=== PATIENT | male | born 1960 | race Hispanic/Latino ===

== ENCOUNTER 2016-11-30 19:28 | Inpatient (IN) | payer MEDICAID, OTHER ==
[2016-11-30 19:28] VITALS: BMI 22.3
--- NOTE | 2016-11-30 20:39 | C.PDOC ---
History Of Present Illness Patient presents to the ED from custodial after accidentally pulling out PEG tube yesterday. [facility] noticed today and sent patient to ED. Patient denies fever, chills, nausea, and vomiting. Time Seen by Provider: 11/30/16 20:38 Chief Complaint (Nursing): GI Problem History Per: Patient History/Exam Limitations: no limitations Onset/Duration Of Symptoms: Days (1 day ) Current Symptoms Are (Timing): Still Present Severity: None Pain Scale Rating Of: 0 Recent travel outside of the [place]: No Additional History Per: Jail Past Medical History Reviewed: Historical Data, Nursing Documentation, Vital Signs Vital Signs: Last Vital Signs Temp 97.9 F 11/30/16 19:40 Pulse 60 11/30/16 19:40 Resp 18 11/30/16 19:40 BP 132/70 11/30/16 19:40 Pulse Ox 99 11/30/16 21:06 - Medical History PMH: Anemia, Arthritis, Back Problems, HTN, Hyperlipidemia - [facility] Procedures ALCOHOL DETOXIFICATION (04/18/14) INSERTION OF ENDOTRACHEAL AIRWAY INTO TRACHEA, VIA OPENING (10/19/16) INSERTION OF FEEDING DEVICE INTO STOMACH, PERC APPROACH (10/19/16) INTRODUCTION OF SERUM/TOX/VACCINE INTO MUSCLE, PERC APPROACH (10/19/16) NONEXCIS DEBRID OF WOUND, INFECT, OR BURN (04/22/14) OTHER SKIN & SUBQ I D (04/27/14) PHYSICAL THERAPY NEC (04/27/14) PSYCHIA INTERV/EVAL NEC (08/24/12) RESPIRATORY VENTILATION, GREATER THAN 96 CONSECUTIVE HOURS (10/19/16) Family History: States: Unknown Family Hx - Social History Hx Tobacco Use: Yes Hx Alcohol Use: No Hx Substance Use: No - Immunization History Hx Tetanus Toxoid Vaccination: Yes Hx Influenza Vaccination: Yes Hx Pneumococcal Vaccination: No Review Of Systems Constitutional: Negative for: Fever, Chills Cardiovascular: Negative for: Chest Pain, Palpitations Respiratory: Negative for: Cough, Shortness of Breath Gastrointestinal: Negative for: Nausea, Vomiting, Abdominal Pain, Diarrhea Physical Exam - Physical Exam Appears: Non-toxic, No Acute Distress Skin: Warm, Dry Head: Atraumatic Eye(s): bilateral: Normal Inspection Oral Mucosa: Moist Neck: Supple Chest: Symmetrical, No Deformity Cardiovascular: Rhythm Regular, No Murmur Respiratory: No Rales, No Rhonchi, No Wheezing Gastrointestinal/Abdominal: Soft, No Tenderness, No Distention, No Guarding, No Rebound, Other (PEG tube site at periumbilical region appears closed) Extremity: Normal ROM, No Tenderness Neurological/Psych: Oriented x3 ED Course And Treatment O2 Sat by Pulse Oximetry: 99 (room air ) Progress Note: Labs were ordered and patient was given IV fluids. Disposition Discussed With DrChantel: Ana Beatty Comment: accepted the pt onhis service and took over the care at 9PM Counseled Patient/Family Regarding: Studies Performed, Diagnosis - Disposition Disposition: HOSPITALIZED Disposition Time: 20:39 Condition: FAIR - POA Present On Arrival: None - Clinical Impression Clinical Impression: PEG tube malfunction - Scribe Statement The provider has reviewed the documentation as recorded by the Scribe Aida Cornelius All medical record entries made by the Scribe were at my direction and personally dictated by me. I have reviewed the chart and agree that the record accurately reflects my personal performance of the history, physical exam, medical decision making, and the department course for this patient. I have also personally directed, reviewed, and agree with the discharge instructions and disposition.
[2016-11-30 21:40] LABS: BASO # 0.1 K/uL (0.0-0.2); BASO % 0.8 % (0.0-2.0); EOS # 0.1 K/uL (0.0-0.7); EOS % 1.4 % (0.0-4.0); HEMATOCRIT 37.4 % (35.0-51.0); LYMPH % 20.6 % (20.0-40.0); MEAN CELL VOLUME 95.5 fL (80.0-94.0); MEAN CORPUSCULAR HEMOGLOBIN 33.1 pg (27.0-31.0); MEAN CORPUSCULAR HGB CONC 34.7 g/dL (33.0-37.0); MEAN PLATELET VOLUME 7.8 fL (7.2-11.7); MONO % 10.3 % (0.0-10.0); WHITE BLOOD COUNT 9.8 K/uL (4.8-10.8)
[2016-11-30] MEDS ORDERED: Sodium Chloride 0.9% 1,000 ML ONE (21:48)
[2016-11-30 21:53] LABS: CHLORIDE 97 mmol/L (98-107); SODIUM 130 mmol/L (132-148)
[2016-11-30 21:55] LABS: GFR AFRICAN-AMERICAN > 60
[2016-11-30] MEDS: Sodium Chloride 0.9% 1,000 ML IV SCH (21:55)
[2016-11-30 21:56] LABS: BLOOD UREA NITROGEN 6 mg/dL (9-20); CALCIUM 8.9 mg/dl (8.6-10.4); CARBON DIOXIDE 24 mmol/L (22-30); GLUCOSE,RANDOM 86 mg/dL (75-110)
--- NOTE | 2016-11-30 22:13 | CP.PCM.HP ---
Past Patient History - Past Medical History & Family History Past Medical History?: Yes - Past Social History Smoking Status: Unknown If Ever Smoked - CARDIAC Hx Hypertension: Yes - PULMONARY Hx Respiratory Disorders: No Hx Tuberculosis: No - HEENT Hx HEENT Problems: No - RENAL Hx Chronic Kidney Disease: No - ENDOCRINE/METABOLIC Hx Endocrine Disorders: No - HEMATOLOGICAL/ONCOLOGICAL Hx Anemia: Yes - INTEGUMENTARY Hx Dermatological Problems: No - MUSCULOSKELETAL/RHEUMATOLOGICAL Hx Arthritis: Yes - GASTROINTESTINAL Hx Gastrointestinal Disorders: Yes Hx Colitis: Yes Hx Gastroesophageal Reflux: Yes Other/Comment: peg ulcer - PSYCHIATRIC Hx Substance Use: No - SURGICAL HISTORY Hx Surgeries: Yes Other/Comment: hemmroids - ANESTHESIA Hx Anesthesia: Yes Hx Anesthesia Reactions: No Hx Malignant Hyperthermia: No Meds Allergies/Adverse Reactions: Allergies Allergy/AdvReac Type Severity Reaction Status Date / Time No Known Allergies Allergy Verified 10/19/16 23:00 Results - Vital Signs Recent Vital Signs: Last Vital Signs Temp 97.9 F 11/30/16 19:40 Pulse 60 11/30/16 19:40 Resp 18 11/30/16 19:40 BP 132/70 11/30/16 19:40 Pulse Ox 99 11/30/16 21:45 - Labs Result Diagrams: 11/30/16 21:31 11/30/16 21:31 Labs: Laboratory Results - last 24 hr 11/30/16 11/30/16 11/30/16 21:31 21:31 21:31 WBC 9.8 RBC 3.92 L Hgb 13.0 Hct 37.4 MCV 95.5 H MCH 33.1 H MCHC 34.7 RDW 14.0 Plt Count 294 MPV 7.8 Neut % (Auto) 66.9 Lymph % (Auto) 20.6 [place] % (Auto) 10.3 H Eos % (Auto) 1.4 Baso % (Auto) 0.8 Neut # 6.6 Lymph # 2.0 [place] # 1.0 H Eos # 0.1 Baso # 0.1 PT 11.7 INR 1.0 APTT 35 H Sodium 130 L Potassium 4.0 Chloride 97 L Carbon Dioxide 24 Anion Gap 14 BUN 6 L Creatinine 0.4 L Est GFR ( Amer) > 60 Est GFR (Non-Af Amer) > 60 Random Glucose 86 Calcium 8.9
[2016-12-01] MEDS: Acetylcysteine 20% Inhal Soln (4ml) INH SCH (08:07)
[2016-12-01] MEDS: Albuterol-Ipratrop 3 mg / 0.5 (3 ml) UD INH SCH ×2 (08:07→11:33)
--- NOTE | 2016-12-01 09:53 | CP.PCM.CON ---
<RadhadannyChin qiu - Last Filed: 12/01/16 13:11> History of Present Illness - History of Present Illness History of Present Illness: PGY5 GI Fellow Consult Note Patient is a 56yo male with PMHx significant for recent CVA with left hemiparesis along with dysarthria/dysphagia s/p PEG tube placement on 11/22/16, EtOH abuse, HTN and chronic back pain who [place] the [place] for inadvertent removal of his recently placed gastrostomy tube. The patient has recently received Ativan and is currently sedated, not willing to answer questions. Prior to this, it is well documented that patient is a poor historian. Following his recent CVA our service was consulted for dysphagia and PEG tube was placed on 11/22/16. Patient transferred [place] to the hospital upon discovering inadvertent removal of PEG tube. PMHx: See HPI PSHx: No prior reports FHx: CAD; no other prior reported significant family history Social: Prior EtOH abuse, unknown tobacco/illicit drug use Endo: 11/22/16 - PEG placement; LA Class C esophagitis Review of Systems - Review of Systems Systems not reviewed;Unavailable: Altered Mental Status Past Patient History - Past Medical History & Family History Past Medical History?: Yes - Past Social History Smoking Status: Never Smoked - CARDIAC Hx Cardiac Disorders: Yes Hx Hypertension: Yes - PULMONARY Hx Respiratory Disorders: No Hx Tuberculosis: No - NEUROLOGICAL Hx Neurological Disorder: Yes HX Cerebrovascular Accident: Yes Hx Paralysis: Yes - HEENT Hx HEENT Problems: No - RENAL Hx Chronic Kidney Disease: No - ENDOCRINE/METABOLIC Hx Endocrine Disorders: No - HEMATOLOGICAL/ONCOLOGICAL Hx Blood Disorders: Yes Hx Anemia: Yes - INTEGUMENTARY Hx Dermatological Problems: No - MUSCULOSKELETAL/RHEUMATOLOGICAL Hx Falls: No - GASTROINTESTINAL Hx Gastrointestinal Disorders: Yes Hx Colitis: Yes Hx Gastroesophageal Reflux: Yes HX Swallowing Problems: Yes Other/Comment: peg ulcer - GENITOURINARY/GYNECOLOGICAL Hx Genitourinary Disorders: No - PSYCHIATRIC Hx Substance Use: Yes - SURGICAL HISTORY Hx Surgeries: Yes Other/Comment: hemmroids - ANESTHESIA Hx Anesthesia: Yes Hx Anesthesia Reactions: No Hx Malignant Hyperthermia: No Has any member of the family had a problem w/ anesthesia?: No Meds Allergies/Adverse Reactions: Allergies Allergy/AdvReac Type Severity Reaction Status Date / Time No Known Allergies Allergy Verified 10/19/16 23:00 - Medications Medications: Current Medications Acetaminophen (Tylenol 325mg Tab) 650 mg PO Q4 PRN PRN Reason: Pain, Mild (1-3) Acetaminophen (Tylenol 650 Mg Supp) 650 mg DC Q6 PRN PRN Reason: Fever >100.4 F Acetylcysteine (Acetylcysteine 20%) 2 ml INH RBID [facility] Last Admin: 12/01/16 08:07 Dose: 2 ml Albuterol/Ipratropium (Duoneb 3 Mg/0.5 Mg (3 Ml) Ud) 3 ml INH RQID [facility] Last Admin: 12/01/16 08:07 Dose: 3 ml Clonidine HCl (Catapres Tts1 0.1 Mg/24 Hr) 1 patch TD QWK [facility] Enalapril Maleate (Vasotec) 10 mg PO BID [facility] Enoxaparin Sodium (Lovenox) 40 mg SC DAILY [facility] Hydralazine HCl (Apresoline) 25 mg PEG TID [facility] Sodium Chloride (Sodium Chloride 0.9%) 1,000 mls @ 150 mls/hr IV .[id number] [facility] Last Admin: 11/30/16 21:55 Dose: 150 mls/hr Influenza Virus Vaccine (Afluria) 45 mcg IM .ONCE ONE Stop: 12/03/16 10:01 Lorazepam (Ativan) 1 mg IVP Q8 [facility] Last Admin: 12/01/16 06:30 Dose: 1 mg Magnesium Hydroxide (Milk Of Magnesia) 30 ml PEG DAILY [facility] Pantoprazole Sodium (Protonix Susp) 40 mg PEG BID [facility] Paroxetine HCl (Paxil) 20 mg PO DAILY PRN PRN Reason: Anxiety Rosuvastatin Calcium (Crestor) 20 mg PEG HS [facility] Physical Exam - Constitutional Appears: Non-toxic, No Acute Distress - Eye Exam Eye Exam: PERRL - ENT Exam ENT Exam: Mucous Membranes Dry - Respiratory Exam Respiratory Exam: Clear to Auscultation Bilateral. absent: Rales, Rhonchi, Wheezes - Cardiovascular Exam Cardiovascular Exam: RRR, +S1, +S2 - GI/Abdominal Exam GI & Abdominal Exam: Normal Bowel Sounds, Soft. absent: Distended, Firm, Guarding, Organomegaly, Rigid, Tenderness Additional comments: evidence of prior PEG site with closed fistulous tract - Extremities Exam Extremities exam: Positive for: normal inspection. Negative for: pedal edema - Neurological Exam Neurological exam: Altered - Psychiatric Exam Psychiatric exam: Normal Affect, Normal Mood - Skin Skin Exam: Dry, Warm Results - Vital Signs Recent Vital Signs: Last Vital Signs Temp 97.5 F L 12/01/16 08:14 Pulse 52 L 12/01/16 08:14 Resp 20 12/01/16 08:14 BP 135/73 12/01/16 08:14 Pulse Ox 97 12/01/16 08:14 - Labs Result Diagrams: 11/30/16 21:31 11/30/16 21:31 Labs: Laboratory Results - last 24 hr 11/30/16 11/30/16 11/30/16 21:31 21:31 21:31 WBC 9.8 RBC 3.92 L Hgb 13.0 Hct 37.4 MCV 95.5 H MCH 33.1 H MCHC 34.7 RDW 14.0 Plt Count 294 MPV 7.8 Neut % (Auto) 66.9 Lymph % (Auto) 20.6 [place] % (Auto) 10.3 H Eos % (Auto) 1.4 Baso % (Auto) 0.8 Neut # 6.6 Lymph # 2.0 [place] # 1.0 H Eos # 0.1 Baso # 0.1 PT 11.7 INR 1.0 APTT 35 H Sodium 130 L Potassium 4.0 Chloride 97 L Carbon Dioxide 24 Anion Gap 14 BUN 6 L Creatinine 0.4 L Est GFR ( Amer) > 60 Est GFR (Non-Af Amer) > 60 Random Glucose 86 Calcium 8.9 Assessment & Plan - Assessment and Plan (Free Text) Assessment: Patient is a 56yo male with PMHx significant for recent CVA with left hemiparesis along with dysarthria/dysphagia s/p PEG tube placement on 11/22/16, EtOH abuse, HTN and chronic back pain who presented [place] the ED [place] for inadvertent removal of his recently placed gastrostomy tube -Inadvertent removal of PEG tube -Recent CVA with dysphagia, L hemiparesis -HTN -H/O EtOH abuse Plan: -Spoke with patient's daughter, Alberta (number in chart) who agrees to move forward with PEG reinsertion -Last dose Plavix was yesterday prior to PEG removal; will hold until Tuesday and plan for placement then in endoscopy -Can place NGT and give temporary TF/medications via NGT - Date & Time Date: 12/01/16 Time: 07:10 <Efrain Vera - Last Filed: 12/01/16 15:04> Meds - Medications Medications: Current Medications Acetaminophen (Tylenol 325mg Tab) 650 mg PO Q4 PRN PRN Reason: Pain, Mild (1-3) Acetaminophen (Tylenol 650 Mg Supp) 650 mg DC Q6 PRN PRN Reason: Fever >100.4 F Acetylcysteine (Acetylcysteine 20%) 2 ml INH RBID [facility] Last Admin: 12/01/16 08:07 Dose: 2 ml Albuterol/Ipratropium (Duoneb 3 Mg/0.5 Mg (3 Ml) Ud) 3 ml INH RQID [facility] Last Admin: 12/01/16 11:33 Dose: 3 ml Clonidine HCl (Catapres Tts1 0.1 Mg/24 Hr) 1 patch TD QWK [facility] Enalapril Maleate (Vasotec) 10 mg PO BID [facility] Last Admin: 12/01/16 10:25 Dose: Not Given Enoxaparin Sodium (Lovenox) 40 mg SC DAILY [facility] Hydralazine HCl (Apresoline) 25 mg PEG TID [facility] Last Admin: 12/01/16 13:58 Dose: Not Given Dextrose/Sodium Chloride (Dextrose 5%/0.9% Ns 1000 Ml) 1,000 mls @ 80 mls/hr IV .[id number] ONE Stop: 12/02/16 00:45 Last Admin: 12/01/16 13:10 Dose: 80 mls/hr Influenza Virus Vaccine (Afluria) 45 mcg IM .ONCE ONE Stop: 12/03/16 10:01 Lorazepam (Ativan) 1 mg IVP Q8 PRN PRN Reason: Agitation Magnesium Hydroxide (Milk Of Magnesia) 30 ml PEG DAILY [facility] Last Admin: 12/01/16 10:24 Dose: Not Given Pantoprazole Sodium (Protonix Inj) 40 mg IVP DAILY [facility] Last Admin: 12/01/16 13:10 Dose: 40 mg Paroxetine HCl (Paxil) 20 mg PO DAILY PRN PRN Reason: Anxiety Rosuvastatin Calcium (Crestor) 20 mg PEG HS [facility] Results - Vital Signs Recent Vital Signs: Last Vital Signs Temp 97.5 F L 12/01/16 08:14 Pulse 52 L 12/01/16 08:14 Resp 20 12/01/16 08:14 BP 135/73 12/01/16 08:14 Pulse Ox 97 12/01/16 08:14 - Labs Result Diagrams: 11/30/16 21:31 12/01/16 14:04 Labs: Laboratory Results - last 24 hr 11/30/16 11/30/16 11/30/16 21:31 21:31 21:31 WBC 9.8 RBC 3.92 L Hgb 13.0 Hct 37.4 MCV 95.5 H MCH 33.1 H MCHC 34.7 RDW 14.0 Plt Count 294 MPV 7.8 Neut % (Auto) 66.9 Lymph % (Auto) 20.6 [place] % (Auto) 10.3 H Eos % (Auto) 1.4 Baso % (Auto) 0.8 Neut # 6.6 Lymph # 2.0 [place] # 1.0 H Eos # 0.1 Baso # 0.1 PT 11.7 INR 1.0 APTT 35 H Sodium 130 L Potassium 4.0 Chloride 97 L Carbon Dioxide 24 Anion Gap 14 BUN 6 L Creatinine 0.4 L Est GFR ( Amer) > 60 Est GFR (Non-Af Amer) > 60 Random Glucose 86 Calcium 8.9 Total Bilirubin AST ALT Alkaline Phosphatase Total Protein Albumin Globulin Albumin/Globulin Ratio 12/01/16 14:04 WBC RBC Hgb Hct MCV MCH MCHC RDW Plt Count MPV Neut % (Auto) Lymph % (Auto) [place] % (Auto) Eos % (Auto) Baso % (Auto) Neut # Lymph # [place] # Eos # Baso # PT INR APTT Sodium 133 Potassium 4.0 Chloride 95 L Carbon Dioxide 24 Anion Gap 18 BUN 9 Creatinine 0.4 L Est GFR ( Amer) > 60 Est GFR (Non-Af Amer) > 60 Random Glucose 77 Calcium 8.6 Total Bilirubin 0.6 AST 29 ALT 35 Alkaline Phosphatase 133 H D Total Protein 6.1 L Albumin 2.7 L D Globulin 3.4 Albumin/Globulin Ratio 0.8 L Attending/Attestation - Attestation I have personally seen and examined this patient.: Yes I have fully participated in the care of the patient.: Yes I have reviewed all pertinent clinical information: Yes Notes (Text): 12/01/16 15:02 56 year old male with h/o CVA with left hemiparesis, s/p PEG tube placement on , EtOH abuse, HTN a/w peg dislodgement. 1. PEG dislodgement Plan: -fistula appears closed -will need repeat EGD with peg replacement -hold plavix -supportive care in interim -plan for tuesday
[2016-12-01] MEDS ORDERED: Enoxaparin 40 mg Syringe SC SCH (10:00)
[2016-12-01] MEDS ORDERED: Pantoprazole 40 mg Susp UD PEG SCH (10:00)
[2016-12-01] MEDS: Magnesium Hydroxide Susp 30 ml UD PEG SCH (10:24)
[2016-12-01] MEDS: Sodium Chloride 0.9% 1,000 ML IV SCH (11:40)
[2016-12-01] MEDS ORDERED: Dextrose 5%/0.9% NS 1,000 ML IV ONE (12:16)
--- NOTE | 2016-12-01 12:57 | CP.PCM.CON ---
History of Present Illness - History of Present Illness History of Present Illness: Palliative Consult Requested by Onelia Beatty MD Reason: Goals of care discussion Patient is a 56 yo male admitted from [facility] after unintentional PEG dislodgment. Patient reported when he woke up the tube was already out of his stomach. Patient was sent today for replacement of PEG but procedure was canceled due to patient being on Plavix and risk of bleeding. PMH: CVA with right hemiparesis, anmia, arthritis, HTN, HDL, ETOH, alcohol detoxification, PEG placement on 11/22/16 Soc. Hx: , [place] resident Fam Hx: CAD in family Review of Systems - Constitutional Constitutional: Lethargy, Malaise, Weakness - EENT Eyes: absent: As Per HPI, Blind Spots, Blurred Vision, Change in Vision, Decreased Night Vision, Diplopia, Discharge, Dry Eye, Exophthalmos, Floaters, Irritation, Itchy Eyes, Loss of Peripheral Vision, Pain, Photophobia, Requires Corrective Lenses, Sees Flashes, Spots in Vision, Tunnel Vision, Other Visual Disturbances, Loss of Vision, Other Ears: absent: As Per HPI, Decreased Hearing, Ear Discharge, Ear Pain, Tinnitus, Abnormal Hearing, Disequilibrium, Dizziness, Other Nose/Mouth/Throat: absent: As Per HPI, Epistaxis, Nasal Congestion, Nasal Discharge, Nasal Obstruction, Nasal Trauma, Nose Pain, Post Nasal Drip, Sinus Pain, Sinus Pressure, Bleeding Gums, Change in Voice, Dental Pain, Dry Mouth, Dysphagia, Halitosis, Hoarsness, Lip Swelling, Mouth Lesions, Mouth Pain, Odynophagia, Sore Throat, Throat Swelling, Tongue Swelling, Facial Pain, Neck Pain, Neck Mass, Other - Cardiovascular Cardiovascular: absent: As Per HPI, Acrocyanosis, Chest Pain, Chest Pain at Rest , Chest Pain with Activity, Claudication, Diaphoresis, Dyspnea, Dyspnea on Exertion, Edema, Irregular Heart Rhythm, Pain Radiating to Arm/Neck/Jaw, Leg Edema, Leg Ulcers, Lightheadedness, Orthopnea, Palpitations, Paroxysmal Nocturnal Dyspnea, Pedal Edema, Radiating Pain, Rapid Heart Rate, Slow Heart Rate, Syncope, Other - Respiratory Respiratory: absent: As Per HPI, Cough, Dyspnea, Hemoptysis, Dyspnea on Exertion , Wheezing, Snoring, Stridor, Pain on Inspiration, Chest Congestion, Excessive Mucous Production, Change in Mucous Color, Pain with Coughing, Other - Gastrointestinal Gastrointestinal: Dysphagia - Genitourinary Genitourinary: absent: As Per HPI, Change in Urinary Stream, Difficulty Urinating, Dysuria, Flank Pain, Hematuria, Pyuria, Nocturia, Urinary Incontinence, Urinary Frequency, Urinary Hesitance, Urinary Urgency, Voiding Freq/Small Amts, Freq UTI, Hx Renal/Bladder Calculi, Hx /Renal Surgery, Bladder Distension, Other - Musculoskeletal Musculoskeletal: Muscle Weakness - Integumentary Integumentary: absent: As Per HPI, Acne, Alopecia, Bleeding Lesions, Change in Hair, Change in Nails, Change in Pigmentation, Changing Lesions, Dry Skin, Erythema, Furuncle, Hirsutism, Lesions, New Lesions, Non-Healing Lesions, Photosensitivity, Pruritus, Rash, Skin Pain, Skin Ulcer, Sores, Striae, Swelling , Unusual Bruising, Wounds, Jaundice, Other - Neurological Neurological: Lack of Coordination - Psychiatric Psychiatric: Anxiety - Endocrine Endocrine: absent: As Per HPI, Change in Body Appearance, Change in Libido, Cold Intolorance, Deepening of Voice, Excessive Sweating, Fatigue, Flushing, Heat Intolorance, Increase in Ring/Shoe/Hat Size, Palpitations, Polydipsia, Polyphagia, Polyuria, Other - Hematologic/Lymphatic Hematologic: Easy Bleeding Past Patient History - Past Medical History & Family History Past Medical History?: Yes - Past Social History Smoking Status: Never Smoked - CARDIAC Hx Cardiac Disorders: Yes Hx Hypertension: Yes - PULMONARY Hx Respiratory Disorders: No Hx Tuberculosis: No - NEUROLOGICAL Hx Neurological Disorder: Yes HX Cerebrovascular Accident: Yes Hx Paralysis: Yes - HEENT Hx HEENT Problems: No - RENAL Hx Chronic Kidney Disease: No - ENDOCRINE/METABOLIC Hx Endocrine Disorders: No - HEMATOLOGICAL/ONCOLOGICAL Hx Blood Disorders: Yes Hx Anemia: Yes - INTEGUMENTARY Hx Dermatological Problems: No - MUSCULOSKELETAL/RHEUMATOLOGICAL Hx Falls: No - GASTROINTESTINAL Hx Gastrointestinal Disorders: Yes Hx Colitis: Yes Hx Gastroesophageal Reflux: Yes HX Swallowing Problems: Yes Other/Comment: peg ulcer - GENITOURINARY/GYNECOLOGICAL Hx Genitourinary Disorders: No - PSYCHIATRIC Hx Substance Use: Yes - SURGICAL HISTORY Hx Surgeries: Yes Other/Comment: hemmroids - ANESTHESIA Hx Anesthesia: Yes Hx Anesthesia Reactions: No Hx Malignant Hyperthermia: No Has any member of the family had a problem w/ anesthesia?: No Meds Allergies/Adverse Reactions: Allergies Allergy/AdvReac Type Severity Reaction Status Date / Time No Known Allergies Allergy Verified 10/19/16 23:00 - Medications Medications: Current Medications Acetaminophen (Tylenol 325mg Tab) 650 mg PO Q4 PRN PRN Reason: Pain, Mild (1-3) Acetaminophen (Tylenol 650 Mg Supp) 650 mg [place] Q6 PRN PRN Reason: Fever >100.4 F Acetylcysteine (Acetylcysteine 20%) 2 ml INH RBID [facility] Last Admin: 12/01/16 08:07 Dose: 2 ml Albuterol/Ipratropium (Duoneb 3 Mg/0.5 Mg (3 Ml) Ud) 3 ml INH RQID [facility] Last Admin: 12/01/16 11:33 Dose: 3 ml Clonidine HCl (Catapres Tts1 0.1 Mg/24 Hr) 1 patch TD QWK [facility] Enalapril Maleate (Vasotec) 10 mg PO BID [facility] Last Admin: 12/01/16 10:25 Dose: Not Given Enoxaparin Sodium (Lovenox) 40 mg SC DAILY [facility] Hydralazine HCl (Apresoline) 25 mg PEG TID [facility] Last Admin: 12/01/16 10:24 Dose: Not Given Dextrose/Sodium Chloride (Dextrose 5%/0.9% Ns 1000 Ml) 1,000 mls @ 80 mls/hr IV .[id number] ONE Stop: 12/02/16 00:45 Influenza Virus Vaccine (Afluria) 45 mcg IM .ONCE ONE Stop: 12/03/16 10:01 Lorazepam (Ativan) 1 mg IVP Q8 [facility] Magnesium Hydroxide (Milk Of Magnesia) 30 ml PEG DAILY [facility] Last Admin: 12/01/16 10:24 Dose: Not Given Pantoprazole Sodium (Protonix Inj) 40 mg IVP DAILY [facility] Paroxetine HCl (Paxil) 20 mg PO DAILY PRN PRN Reason: Anxiety Rosuvastatin Calcium (Crestor) 20 mg PEG HS [facility] Physical Exam - Constitutional Appears: Chronically Ill - Head Exam Head Exam: ATRAUMATIC, NORMAL INSPECTION, NORMOCEPHALIC - Eye Exam Eye Exam: EOMI, Normal appearance, PERRL Pupil Exam: NORMAL ACCOMODATION - ENT Exam ENT Exam: Mucous Membranes Dry - Neck Exam Neck exam: Positive for: Normal Inspection - Respiratory Exam Respiratory Exam: Clear to Auscultation Bilateral, NORMAL BREATHING PATTERN - Cardiovascular Exam Cardiovascular Exam: Bradycardia, REGULAR RHYTHM - GI/Abdominal Exam GI & Abdominal Exam: Hypoactive Bowel Sounds - Rectal Exam Rectal Exam: Deferred - Exam Exam: NORMAL INSPECTION - Extremities Exam Extremities exam: Positive for: normal inspection Additional comments: Lack of coordination to right arm and right leg - Back Exam Back exam: NORMAL INSPECTION - Neurological Exam Neurological exam: Alert, Oriented x3 - Psychiatric Exam Psychiatric exam: Flat Affect - Skin Skin Exam: Dry, Intact, Normal Color Results - Vital Signs Recent Vital Signs: Last Vital Signs Temp 97.5 F L 12/01/16 08:14 Pulse 52 L 12/01/16 08:14 Resp 20 12/01/16 08:14 BP 135/73 12/01/16 08:14 Pulse Ox 97 12/01/16 08:14 - Labs Result Diagrams: 11/30/16 21:31 11/30/16 21:31 Labs: Laboratory Results - last 24 hr 11/30/16 11/30/16 11/30/16 21:31 21:31 21:31 WBC 9.8 RBC 3.92 L Hgb 13.0 Hct 37.4 MCV 95.5 H MCH 33.1 H MCHC 34.7 RDW 14.0 Plt Count 294 MPV 7.8 Neut % (Auto) 66.9 Lymph % (Auto) 20.6 Gentry % (Auto) 10.3 H Eos % (Auto) 1.4 Baso % (Auto) 0.8 Neut # 6.6 Lymph # 2.0 Gentry # 1.0 H Eos # 0.1 Baso # 0.1 PT 11.7 INR 1.0 APTT 35 H Sodium 130 L Potassium 4.0 Chloride 97 L Carbon Dioxide 24 Anion Gap 14 BUN 6 L Creatinine 0.4 L Est GFR ( Amer) > 60 Est GFR (Non-Af Amer) > 60 Random Glucose 86 Calcium 8.9 Assessment & Plan - Assessment and Plan (Free Text) Assessment: Palliative consult Code status not defined, there is no Advance Directive on chart, PPS 10% I reviewed medical records, all diagnostic studies, examined and interviewed patient in the bed. Patient is alert, lethargic, oriented X 3, looking weak. Patient answers questions appropriatelly. Concentration span is short. Patient falls a sleep easily and detailed discussion of goals of care was not possible. Patient was able to state not being able to ambulate and being on bed rest mostly. PEG replacement procedure was cancelled due to risk of bleeding secondary to Plavix Tx. Skin is dry with poor skin turgor. Oral mucousa and lips are dry. Patient is NPO due to dysphagia . There is right sided weakness. Patient reports not being able to walk post CVA. Patient reports being hungry and thirsty. Abdomen is flat, the old PEG site without redness/ drainage. Denies pain. The rest of physical exam reveals no deficits. BP 135/73, HR56, O2Sat 97%. WBC 9.8, Hb 13, Na 130. Impression * This is chronically ill man in no acute distress * Patient is at risk for malnutrition and dehydration due to lack of nutrition secondary to lost PEG site * Body image disturbance * Lethargy and weakness * Needs moderate assistance with ADLs Suggestion * Would provide artificial hydration and nutrition * Correct low Na level * Oral hygiene * Assist OOB as tolerated Thank you for consulting Palliative Care
[2016-12-01 14:33] LABS: CHLORIDE 95 mmol/L (98-107); SODIUM 133 mmol/L (132-148)
[2016-12-01 14:35] LABS: AST/SGOT 29 U/L (17-59); BILIRUBIN,TOTAL 0.6 mg/dL (0.2-1.3); CARBON DIOXIDE 24 mmol/L (22-30); GFR AFRICAN-AMERICAN > 60
[2016-12-01 14:36] LABS: ALB/GLOB RATIO 0.8 (1.0-2.1); ALKALINE PHOSPHATASE 133 U/L (38-126); ALT/SGPT 35 U/L (21-72); BLOOD UREA NITROGEN 9 mg/dL (9-20); CALCIUM 8.6 mg/dl (8.6-10.4); GLUCOSE,RANDOM 77 mg/dL (75-110); TOTAL PROTEIN 6.1 g/dL (6.3-8.3)
[2016-12-01] MEDS: Bacitracin Ointment 30 GM TUBE TOP SCH (17:56)
--- NOTE | 2016-12-01 19:32 | CP.PCM.PN ---
Subjective - Date & Time of Evaluation Date of Evaluation: 12/01/16 Time of Evaluation: 09:20 - Subjective Subjective: clinically same Objective - Vital Signs/Intake and Output Vital Signs (last 24 hours): Temp Pulse Resp BP Pulse Ox 97.5 F L 52 L 20 143/75 97 12/01/16 08:14 12/01/16 08:14 12/01/16 08:14 12/01/16 17:56 12/01/16 08:14 Intake and Output: 12/01/16 12/02/16 18:59 06:59 Intake Total 660 Balance 660 - Medications Medications: Current Medications Acetaminophen (Tylenol 650 Mg Supp) 650 mg [place] Q6 PRN PRN Reason: Fever >100.4 F Acetylcysteine (Acetylcysteine 20%) 2 ml INH RBID [facility] Last Admin: 12/01/16 08:07 Dose: 2 ml Albuterol/Ipratropium (Duoneb 3 Mg/0.5 Mg (3 Ml) Ud) 3 ml INH RQID [facility] Last Admin: 12/01/16 11:33 Dose: 3 ml Bacitracin (Bacitracin) 0 gm TOP BID [facility] Last Admin: 12/01/16 17:56 Dose: 1 applic Clonidine HCl (Catapres Tts1 0.1 Mg/24 Hr) 1 patch TD QWK [facility] Enalapril Maleate (Vasotec) 10 mg PO BID [facility] Last Admin: 12/01/16 17:56 Dose: 10 mg Enoxaparin Sodium (Lovenox) 40 mg SC DAILY [facility] Hydralazine HCl (Apresoline) 25 mg PO TID [facility] Last Admin: 12/01/16 17:56 Dose: 25 mg Dextrose/Sodium Chloride (Dextrose 5%/0.9% Ns 1000 Ml) 1,000 mls @ 80 mls/hr IV .[id number] ONE Stop: 12/02/16 00:45 Last Admin: 12/01/16 13:10 Dose: 80 mls/hr Influenza Virus Vaccine (Afluria) 45 mcg IM .ONCE ONE Stop: 12/03/16 10:01 Lorazepam (Ativan) 1 mg IVP Q8 PRN PRN Reason: Agitation Magnesium Hydroxide (Milk Of Magnesia) 30 ml PEG DAILY [facility] Last Admin: 12/01/16 10:24 Dose: Not Given Pantoprazole Sodium (Protonix Inj) 40 mg IVP DAILY [facility] Last Admin: 12/01/16 13:10 Dose: 40 mg Paroxetine HCl (Paxil) 20 mg PO DAILY PRN PRN Reason: Anxiety Pneumococcal Polyvalent Vaccine (Pneumovax 23 Vaccine) 0.5 ml IM .ONCE ONE Stop: 12/04/16 12:01 Rosuvastatin Calcium (Crestor) 20 mg PEG HS [facility] - Labs Labs: 11/30/16 21:31 12/01/16 14:04 PT 11.7 SECONDS (9.7-12.2) 11/30/16 21:31 INR 1.0 11/30/16 21:31 APTT 35 SECONDS (21-34) H 11/30/16 21:31 - Constitutional Appears: Well - Head Exam Head Exam: ATRAUMATIC, NORMAL INSPECTION, NORMOCEPHALIC - Eye Exam Eye Exam: EOMI, Normal appearance, PERRL Pupil Exam: NORMAL ACCOMODATION, PERRL - ENT Exam ENT Exam: Mucous Membranes Moist, Normal Exam - Neck Exam Neck Exam: Full ROM, Normal Inspection. absent: Lymphadenopathy - Respiratory Exam Respiratory Exam: Decreased Breath Sounds - Cardiovascular Exam Cardiovascular Exam: REGULAR RHYTHM, +S1, +S2 - GI/Abdominal Exam GI & Abdominal Exam: Soft, Diminished Bowel Sounds - Rectal Exam Rectal Exam: Deferred
[2016-12-02] MEDS: Acetylcysteine 20% Inhal Soln (4ml) INH SCH ×2 (07:30→20:21)
[2016-12-02] MEDS: Albuterol-Ipratrop 3 mg / 0.5 (3 ml) UD INH SCH ×4 (07:38→20:21)
--- NOTE | 2016-12-02 08:34 | CP.PCM.PN ---
<Chin Pineda - Last Filed: 12/02/16 09:00> Subjective - Date & Time of Evaluation Date of Evaluation: 12/02/16 Time of Evaluation: 07:40 - Subjective Subjective: PGY5 GI Fellow Progress Note Patient seen and examined bedside this morning. The patient states that he is having leg cramps that are bothering him. No issues overnight. He is alert today but is not oriented to time/place. Was started on dysphagia diet yesterday. Pt admits to some discomfort, coughing with eating. Encouraged to stop eating and wait for full evaluation. 12 system ROS performed but limited given mentation Objective - Vital Signs/Intake and Output Vital Signs (last 24 hours): Temp Pulse Resp BP Pulse Ox 97.9 F 67 20 124/73 97 12/02/16 00:00 12/02/16 00:00 12/02/16 00:00 12/02/16 00:00 12/02/16 00:00 Intake and Output: 12/02/16 12/02/16 06:59 18:59 Intake Total 610 230 Balance 610 230 - Medications Medications: Current Medications Acetaminophen (Tylenol 650 Mg Supp) 650 mg NE Q6 PRN PRN Reason: Fever >100.4 F Acetylcysteine (Acetylcysteine 20%) 2 ml INH RBID [facility] Last Admin: 12/02/16 07:30 Dose: Not Given Albuterol/Ipratropium (Duoneb 3 Mg/0.5 Mg (3 Ml) Ud) 3 ml INH RQID [facility] Last Admin: 12/02/16 07:38 Dose: 3 ml Bacitracin (Bacitracin) 0 gm TOP BID [facility] Last Admin: 12/01/16 17:56 Dose: 1 applic Clonidine HCl (Catapres Tts1 0.1 Mg/24 Hr) 1 patch TD QWK [facility] Enalapril Maleate (Vasotec) 10 mg PO BID [facility] Last Admin: 12/01/16 17:56 Dose: 10 mg Enoxaparin Sodium (Lovenox) 40 mg SC DAILY [facility] Hydralazine HCl (Apresoline) 25 mg PO TID [facility] Last Admin: 12/01/16 17:56 Dose: 25 mg Ibuprofen (Motrin Tab) 400 mg PO Q8 PRN PRN Reason: pain Influenza Virus Vaccine (Afluria) 45 mcg IM .ONCE ONE Stop: 12/03/16 10:01 Lorazepam (Ativan) 1 mg IVP Q8 PRN PRN Reason: Agitation Magnesium Hydroxide (Milk Of Magnesia) 30 ml PEG DAILY [facility] Last Admin: 12/01/16 10:24 Dose: Not Given Pantoprazole Sodium (Protonix Inj) 40 mg IVP DAILY [facility] Last Admin: 12/01/16 13:10 Dose: 40 mg Paroxetine HCl (Paxil) 20 mg PO DAILY PRN PRN Reason: Anxiety Pneumococcal Polyvalent Vaccine (Pneumovax 23 Vaccine) 0.5 ml IM .ONCE ONE Stop: 12/04/16 12:01 Rosuvastatin Calcium (Crestor) 20 mg PEG HS [facility] Last Admin: 12/01/16 22:32 Dose: Not Given - Labs Labs: 11/30/16 21:31 12/01/16 14:04 PT 11.7 SECONDS (9.7-12.2) 11/30/16 21:31 INR 1.0 11/30/16 21:31 APTT 35 SECONDS (21-34) H 11/30/16 21:31 - Constitutional Appears: Non-toxic, No Acute Distress - Eye Exam Eye Exam: EOMI, PERRL - ENT Exam ENT Exam: Mucous Membranes Moist - Respiratory Exam Respiratory Exam: Clear to Ausculation Bilateral. absent: Rales, Rhonchi, Wheezes - Cardiovascular Exam Cardiovascular Exam: RRR, +S1, +S2 - GI/Abdominal Exam GI & Abdominal Exam: Soft, Normal Bowel Sounds. absent: Distended, Firm, Guarding, Rigid, Tenderness, Organomegaly Additional comments: old PEG site noted, no purulence or discharge - Extremities Exam Extremities Exam: Normal Inspection. absent: Pedal Edema - Neurological Exam Neurological Exam: Alert, Awake. absent: Oriented x3 - Psychiatric Exam Psychiatric exam: Normal Affect, Normal Mood - Skin Skin Exam: Dry, Warm Assessment and Plan - Assessment and Plan (Free Text) Assessment: Patient is a 56yo male with PMHx significant for recent CVA with left hemiparesis along with dysarthria/dysphagia s/p PEG tube placement on 11/22/16, EtOH abuse, HTN and chronic back pain who [place] the [place] for inadvertent removal of his recently placed gastrostomy tube -Inadvertent removal of PEG tube -Recent CVA with dysphagia, L hemiparesis -HTN -H/O EtOH abuse Plan: -Patient initiated on dysphagia diet yesterday, I have D/C and made pt NPO -At bedside, pt coughing with intake, complaining of dysphagia with food served -Discussed case with [employer] STORE MANAGER, agree with plan for NPO, PEG placement -Continue to hold plavix, plan for PEG tomorrow pending any changes by [employer] STORE MANAGER - will obtain consent from patient's daughter -Per [employer] STORE MANAGER, recommend outpatient [employer] STORE MANAGER dysphagia therapy and will need Rx for this; will discuss with primary service -Again, recommend NGT for meds/nutrition in short term if needed -Strict NPO <Jeison Bennett - Last Filed: 12/02/16 18:11> Objective - Vital Signs/Intake and Output Vital Signs (last 24 hours): Temp Pulse Resp BP Pulse Ox 98.3 F 65 20 125/68 97 12/02/16 15:00 12/02/16 16:50 12/02/16 15:00 12/02/16 16:50 12/02/16 16:50 Intake and Output: 12/02/16 12/02/16 06:59 18:59 Intake Total 610 230 Balance 610 230 - Medications Medications: Current Medications Acetaminophen (Tylenol 650 Mg Supp) 650 mg NE Q6 PRN PRN Reason: Fever >100.4 F Acetylcysteine (Acetylcysteine 20%) 2 ml INH RBID [facility] Last Admin: 12/02/16 07:30 Dose: Not Given Albuterol/Ipratropium (Duoneb 3 Mg/0.5 Mg (3 Ml) Ud) 3 ml INH RQID [facility] Last Admin: 12/02/16 11:02 Dose: 3 ml Bacitracin (Bacitracin) 0 gm TOP BID [facility] Last Admin: 12/02/16 17:38 Dose: Not Given Clonidine HCl (Catapres Tts1 0.1 Mg/24 Hr) 1 patch TD QWK [facility] Enalapril Maleate (Vasotec) 10 mg PO BID [facility] Last Admin: 12/02/16 11:02 Dose: 10 mg Enoxaparin Sodium (Lovenox) 40 mg SC DAILY [facility] Hydralazine HCl (Apresoline) 25 mg PO TID [facility] Last Admin: 12/02/16 17:38 Dose: Not Given Hydromorphone HCl (Dilaudid) 0.5 mg IVP Q8H PRN PRN Reason: Pain, Mild (1-3) Sodium Chloride (Sodium Chloride 0.9%) 1,000 mls @ 80 mls/hr IV .[id number] [facility] Ibuprofen (Motrin Tab) 400 mg PO Q8 PRN PRN Reason: pain Last Admin: 12/02/16 11:07 Dose: 400 mg Influenza Virus Vaccine (Afluria) 45 mcg IM .ONCE ONE Stop: 12/03/16 10:01 Lorazepam (Ativan) 1 mg IVP Q8 PRN PRN Reason: Agitation Magnesium Hydroxide (Milk Of Magnesia) 30 ml PEG DAILY [facility] Last Admin: 12/02/16 11:00 Dose: Not Given Pantoprazole Sodium (Protonix Inj) 40 mg IVP DAILY [facility] Last Admin: 12/02/16 11:00 Dose: 40 mg Paroxetine HCl (Paxil) 20 mg PO DAILY PRN PRN Reason: Anxiety Pneumococcal Polyvalent Vaccine (Pneumovax 23 Vaccine) 0.5 ml IM .ONCE ONE Stop: 12/04/16 12:01 Rosuvastatin Calcium (Crestor) 20 mg PEG HS [facility] Last Admin: 12/01/16 22:32 Dose: Not Given - Labs Labs: 11/30/16 21:31 12/01/16 14:04 PT 11.7 SECONDS (9.7-12.2) 11/30/16 21:31 INR 1.0 11/30/16 21:31 APTT 35 SECONDS (21-34) H 11/30/16 21:31 Attending/Attestation - Attestation I have personally seen and examined this patient.: Yes I have fully participated in the care of the patient.: Yes I have reviewed all pertinent clinical information, including history, physical exam and plan: Yes Notes (Text): 12/02/16 18:06 I have seen and examined patient with GI fellow. No acute events overnight, he mainly complains of bilateral lower extremity cramps but denies nausea, vomiting , fever/chills. He attempted PO diet yesterday though experienced significant coughing with attempted meal consumption. Review of vitals from today are normal. CVA with residual hemiparesis Dysphagia s/p recent PEG placement and subsequent dislodgement of feeding tube HTN ETOH abuse - [employer] STORE MANAGER evaluation noted, patient at high risk for aspiration with solid food consumption - NPO - Plavix has been held for past 4 days - Plan for endoscopic gastrostomy placement tomorrow, consent obtained
[2016-12-02] MEDS: Magnesium Hydroxide Susp 30 ml UD PEG SCH (11:00)
[2016-12-02] MEDS: Bacitracin Ointment 30 GM TUBE TOP SCH ×2 (11:00→17:38)
[2016-12-02] MEDS: Sodium Chloride 0.9% 1,000 ML IV SCH (18:23)
[2016-12-02] MEDS: HYDROmorphone 0.5 mg/0.5 ml ISec IVP PRN (18:32)
--- NOTE | 2016-12-02 20:40 | CP.PCM.PN ---
Subjective - Date & Time of Evaluation Date of Evaluation: 12/02/16 Time of Evaluation: 09:00 - Subjective Subjective: clinically same Objective - Vital Signs/Intake and Output Vital Signs (last 24 hours): Temp Pulse Resp BP Pulse Ox 98.3 F 65 20 125/68 97 12/02/16 15:00 12/02/16 16:50 12/02/16 15:00 12/02/16 16:50 12/02/16 16:50 Intake and Output: 12/02/16 12/03/16 18:59 06:59 Intake Total 230 Balance 230 - Medications Medications: Current Medications Acetaminophen (Tylenol 650 Mg Supp) 650 mg NE Q6 PRN PRN Reason: Fever >100.4 F Acetylcysteine (Acetylcysteine 20%) 2 ml INH RBID [facility] Last Admin: 12/02/16 20:21 Dose: 2 ml Albuterol/Ipratropium (Duoneb 3 Mg/0.5 Mg (3 Ml) Ud) 3 ml INH RQID [facility] Last Admin: 12/02/16 20:21 Dose: 3 ml Bacitracin (Bacitracin) 0 gm TOP BID [facility] Last Admin: 12/02/16 17:38 Dose: Not Given Clonidine HCl (Catapres Tts1 0.1 Mg/24 Hr) 1 patch TD QWK [facility] Enalapril Maleate (Vasotec) 10 mg PO BID [facility] Last Admin: 12/02/16 11:02 Dose: 10 mg Enoxaparin Sodium (Lovenox) 40 mg SC DAILY [facility] Hydralazine HCl (Apresoline) 25 mg PO TID [facility] Last Admin: 12/02/16 17:38 Dose: Not Given Hydromorphone HCl (Dilaudid) 0.5 mg IVP Q8H PRN PRN Reason: Pain, Mild (1-3) Last Admin: 12/02/16 18:32 Dose: 0.5 mg Sodium Chloride (Sodium Chloride 0.9%) 1,000 mls @ 80 mls/hr IV .[id number] [facility] Last Admin: 12/02/16 18:23 Dose: 80 mls/hr Ibuprofen (Motrin Tab) 400 mg PO Q8 PRN PRN Reason: pain Last Admin: 12/02/16 11:07 Dose: 400 mg Influenza Virus Vaccine (Afluria) 45 mcg IM .ONCE ONE Stop: 12/03/16 10:01 Lorazepam (Ativan) 1 mg IVP Q8 PRN PRN Reason: Agitation Magnesium Hydroxide (Milk Of Magnesia) 30 ml PEG DAILY [facility] Last Admin: 12/02/16 11:00 Dose: Not Given Pantoprazole Sodium (Protonix Inj) 40 mg IVP DAILY [facility] Last Admin: 12/02/16 11:00 Dose: 40 mg Paroxetine HCl (Paxil) 20 mg PO DAILY PRN PRN Reason: Anxiety Pneumococcal Polyvalent Vaccine (Pneumovax 23 Vaccine) 0.5 ml IM .ONCE ONE Stop: 12/04/16 12:01 Rosuvastatin Calcium (Crestor) 20 mg PEG HS [facility] Last Admin: 12/01/16 22:32 Dose: Not Given - Labs Labs: 11/30/16 21:31 12/01/16 14:04 PT 11.7 SECONDS (9.7-12.2) 11/30/16 21:31 INR 1.0 11/30/16 21:31 APTT 35 SECONDS (21-34) H 11/30/16 21:31
[2016-12-03] MEDS: HYDROmorphone 0.5 mg/0.5 ml ISec IVP PRN ×2 (04:59→13:08)
[2016-12-03] MEDS: Sodium Chloride 0.9% 1,000 ML IV SCH ×2 (06:13→21:51)
[2016-12-03 07:20] LABS: BASO # 0.1 K/uL (0.0-0.2); BASO % 1.1 % (0.0-2.0); EOS # 0.1 K/uL (0.0-0.7); EOS % 1.7 % (0.0-4.0); HEMATOCRIT 34.8 % (35.0-51.0); LYMPH # 1.7 K/uL (1.0-4.3); LYMPH % 21.7 % (20.0-40.0); MEAN CELL VOLUME 95.8 fL (80.0-94.0); MEAN CORPUSCULAR HEMOGLOBIN 33.2 pg (27.0-31.0); MEAN CORPUSCULAR HGB CONC 34.7 g/dL (33.0-37.0); MEAN PLATELET VOLUME 7.6 fL (7.2-11.7); MONO # 0.7 K/uL (0.0-0.8); MONO % 9.2 % (0.0-10.0); RED CELL DISTRIBUTION WIDTH 13.7 % (11.5-14.5); WHITE BLOOD COUNT 7.8 K/uL (4.8-10.8)
[2016-12-03 07:27] LABS: INR 1.1
[2016-12-03 07:44] LABS: CHLORIDE 98 mmol/L (98-107); POTASSIUM 3.7 mmol/L (3.6-5.2); SODIUM 135 mmol/L (132-148)
[2016-12-03 07:47] LABS: ALB/GLOB RATIO 0.9 (1.0-2.1); ALKALINE PHOSPHATASE 137 U/L (38-126); ALT/SGPT 31 U/L (21-72); AST/SGOT 29 U/L (17-59); BILIRUBIN,TOTAL 0.6 mg/dL (0.2-1.3); BLOOD UREA NITROGEN 4 mg/dL (9-20); CARBON DIOXIDE 23 mmol/L (22-30); GFR AFRICAN-AMERICAN > 60; GLUCOSE,RANDOM 87 mg/dL (75-110); TOTAL PROTEIN 6.4 g/dL (6.3-8.3)
[2016-12-03] MEDS: Bacitracin Ointment 30 GM TUBE TOP SCH ×2 (09:15→17:34)
[2016-12-03] MEDS: Magnesium Hydroxide Susp 30 ml UD PEG SCH (09:16)
[2016-12-03] MEDS: Acetylcysteine 20% Inhal Soln (4ml) INH SCH ×2 (09:21→20:01)
[2016-12-03] MEDS: Albuterol-Ipratrop 3 mg / 0.5 (3 ml) UD INH SCH ×3 (09:21→20:01)
[2016-12-03] MEDS ORDERED: Lactated Ringer's 1,000 ML IV ONE (10:10)
[2016-12-03] MEDS ORDERED: Propofol 10 mg/ml Inj (20 ML) ONE (10:14)
[2016-12-03] MEDS ORDERED: Lactated Ringer's 500 ML IV SCH (10:30)
[2016-12-03] MEDS ORDERED: ceFAZolin 1 GM in Sodium Chloride 0.9% 100 ML IVPB ONE (11:30)
--- NOTE | 2016-12-03 16:40 | CP.PCM.PN ---
Subjective - Date & Time of Evaluation Date of Evaluation: 12/03/16 Time of Evaluation: 08:40 - Subjective Subjective: clinically same Objective - Vital Signs/Intake and Output Vital Signs (last 24 hours): Temp Pulse Resp BP Pulse Ox 97.5 F L 55 L 20 132/67 99 12/03/16 15:00 12/03/16 15:00 12/03/16 15:00 12/03/16 15:00 12/03/16 15:00 Intake and Output: 12/03/16 12/03/16 06:59 18:59 Intake Total 640 1120 Output Total 400 600 Balance 240 520 - Medications Medications: Current Medications Acetaminophen (Tylenol 650 Mg Supp) 650 mg [place] Q6 PRN PRN Reason: Fever >100.4 F Acetylcysteine (Acetylcysteine 20%) 2 ml INH RBID [facility] Last Admin: 12/03/16 09:21 Dose: Not Given Albuterol/Ipratropium (Duoneb 3 Mg/0.5 Mg (3 Ml) Ud) 3 ml INH RQID [facility] Last Admin: 12/03/16 11:51 Dose: Not Given Bacitracin (Bacitracin) 0 gm TOP BID [facility] Last Admin: 12/03/16 09:15 Dose: Not Given Clonidine HCl (Catapres Tts1 0.1 Mg/24 Hr) 1 patch TD QWK [facility] Enalapril Maleate (Vasotec) 10 mg PO BID [facility] Last Admin: 12/03/16 09:16 Dose: Not Given Enoxaparin Sodium (Lovenox) 40 mg SC DAILY [facility] Hydralazine HCl (Apresoline) 25 mg PO TID [facility] Last Admin: 12/03/16 14:30 Dose: 25 mg Hydromorphone HCl (Dilaudid) 0.5 mg IVP Q8H PRN PRN Reason: Pain, Mild (1-3) Last Admin: 12/03/16 13:08 Dose: 0.5 mg Sodium Chloride (Sodium Chloride 0.9%) 1,000 mls @ 80 mls/hr IV .[id number] [facility] Last Admin: 12/03/16 06:13 Dose: 80 mls/hr Ibuprofen (Motrin Tab) 400 mg PO Q8 PRN PRN Reason: pain Last Admin: 12/02/16 11:07 Dose: 400 mg Lorazepam (Ativan) 1 mg IVP Q8 PRN PRN Reason: Agitation Magnesium Hydroxide (Milk Of Magnesia) 30 ml PEG DAILY [facility] Last Admin: 12/03/16 09:16 Dose: Not Given Pantoprazole Sodium (Protonix Inj) 40 mg IVP DAILY [facility] Last Admin: 12/03/16 09:16 Dose: Not Given Paroxetine HCl (Paxil) 20 mg PO DAILY PRN PRN Reason: Anxiety Pneumococcal Polyvalent Vaccine (Pneumovax 23 Vaccine) 0.5 ml IM .ONCE ONE Stop: 12/04/16 12:01 Rosuvastatin Calcium (Crestor) 20 mg PEG HS [facility] Last Admin: 12/02/16 22:00 Dose: Not Given - Labs Labs: 12/03/16 07:02 12/03/16 07:02 PT 12.3 SECONDS (9.7-12.2) H 12/03/16 07:02 INR 1.1 12/03/16 07:02 APTT 35 SECONDS (21-34) H 11/30/16 21:31 - Constitutional Appears: Well - Head Exam Head Exam: ATRAUMATIC, NORMAL INSPECTION, NORMOCEPHALIC - Eye Exam Eye Exam: EOMI, Normal appearance, PERRL Pupil Exam: NORMAL ACCOMODATION, PERRL - ENT Exam ENT Exam: Mucous Membranes Moist, Normal Exam - Neck Exam Neck Exam: Full ROM, Normal Inspection. absent: Lymphadenopathy - Respiratory Exam Respiratory Exam: Decreased Breath Sounds - Cardiovascular Exam Cardiovascular Exam: REGULAR RHYTHM, +S1, +S2 - GI/Abdominal Exam GI & Abdominal Exam: Soft, Diminished Bowel Sounds - Rectal Exam Rectal Exam: Deferred
[2016-12-03 20:27] LABS: BASO # 0.2 K/uL (0.0-0.2); EOS # 0.2 K/uL (0.0-0.7); EOS % 0.9 % (0.0-4.0); HEMATOCRIT 30.3 % (35.0-51.0); LYMPH # 3.3 K/uL (1.0-4.3); LYMPH % 19.6 % (20.0-40.0); MEAN CORPUSCULAR HEMOGLOBIN 32.6 pg (27.0-31.0); MEAN PLATELET VOLUME 7.3 fL (7.2-11.7); MONO # 1.3 K/uL (0.0-0.8); MONO % 7.4 % (0.0-10.0); RED CELL DISTRIBUTION WIDTH 13.8 % (11.5-14.5); WHITE BLOOD COUNT 16.9 K/uL (4.8-10.8)
[2016-12-03 20:36] LABS: CHLORIDE 96 mmol/L (98-107); POTASSIUM 4.3 mmol/L (3.6-5.2); SODIUM 132 mmol/L (132-148)
[2016-12-03 20:38] LABS: ALB/GLOB RATIO 0.8 (1.0-2.1); AST/SGOT 24 U/L (17-59); BILIRUBIN,TOTAL 0.7 mg/dL (0.2-1.3); BLOOD UREA NITROGEN 10 mg/dL (9-20); CARBON DIOXIDE 22 mmol/L (22-30); GFR AFRICAN-AMERICAN > 60; TOTAL PROTEIN 5.8 g/dL (6.3-8.3)
[2016-12-03 20:39] LABS: ALKALINE PHOSPHATASE 124 U/L (38-126); ALT/SGPT 31 U/L (21-72); CALCIUM 8.1 mg/dl (8.6-10.4); GLUCOSE,RANDOM 96 mg/dL (75-110)
[2016-12-03] MEDS ORDERED: Sodium Chloride 0.9% 1,000 ML IV ONE (21:25)
--- NOTE | 2016-12-03 22:33 | CP.PCM.CON ---
History of Present Illness - History of Present Illness History of Present Illness: CCM 56 yo male from [place] b/o dislodged PEG. Pt with hx HTN /Anemia /Colitis /GERD /PEG / Hemorrhoids. Pt had PEG replaced today. Had some chest discomfort in AM. Found with low BP 76/35 and dizzy, improved to 95/64 after 500cc NS. Pt had 2nd drip to 77/53 but asymptomatic. No sob/n /v /dizziness /chest pain. Pt had 1Liter NS and BP improved to 101/59 P-85 ROS- as noted All- NKDA Social- ex- etoh Meds- reviewed FH- Unknown PE Alert male, nad T-97.3 Neck- no jvdlungs- bilat bs Heart-rr ABd-+ PEG, bs+, soft, nontender Ext- nontender Neuro- nonfocal Labs Reviewed A&P s/p Hypotension-? volume depletion /? infection s/p PEG re-insertion Hx HTN Anemia GERD BP improved after IV NS cont IV fluid check cultures maintain optimal lytes cont treatment on floor re-consult prn Add: Pt with subsequent GI bleed and worsening anemia accepted to ICU for PRBC and further Tx Past Patient History - Past Medical History & Family History Past Medical History?: Yes - Past Social History Smoking Status: Never Smoked - CARDIAC Hx Hypertension: Yes - PULMONARY Hx Respiratory Disorders: No Hx Tuberculosis: No - NEUROLOGICAL HX Cerebrovascular Accident: Yes (LEFT HEMIPLEGIA) - HEENT Hx HEENT Problems: No - RENAL Hx Chronic Kidney Disease: No - ENDOCRINE/METABOLIC Hx Endocrine Disorders: No - HEMATOLOGICAL/ONCOLOGICAL Hx Blood Disorders: Yes Hx Anemia: Yes - INTEGUMENTARY Hx Dermatological Problems: No - MUSCULOSKELETAL/RHEUMATOLOGICAL Hx Arthritis: Yes (L KNEE) - GASTROINTESTINAL Hx Gastrointestinal Disorders: Yes Hx Colitis: Yes Hx Gastroesophageal Reflux: Yes HX Swallowing Problems: Yes Other/Comment: peg ulcer - GENITOURINARY/GYNECOLOGICAL Hx Genitourinary Disorders: No - PSYCHIATRIC Hx Substance Use: Yes - SURGICAL HISTORY Hx Surgeries: Yes Other/Comment: hemmroids - ANESTHESIA Hx Anesthesia: Yes Hx Anesthesia Reactions: No Hx Malignant Hyperthermia: No Has any member of the family had a problem w/ anesthesia?: No Meds Allergies/Adverse Reactions: Allergies Allergy/AdvReac Type Severity Reaction Status Date / Time No Known Allergies Allergy Verified 10/19/16 23:00 - Medications Medications: Current Medications Acetaminophen (Tylenol 650 Mg Supp) 650 mg [place] Q6 PRN PRN Reason: Fever >100.4 F Acetylcysteine (Acetylcysteine 20%) 2 ml INH RBID [facility] Last Admin: 12/03/16 20:01 Dose: Not Given Albuterol/Ipratropium (Duoneb 3 Mg/0.5 Mg (3 Ml) Ud) 3 ml INH RQID [facility] Last Admin: 12/03/16 20:01 Dose: Not Given Bacitracin (Bacitracin) 0 gm TOP BID [facility] Last Admin: 12/03/16 17:34 Dose: 1 applic Clonidine HCl (Catapres Tts1 0.1 Mg/24 Hr) 1 patch TD QWK [facility] Enalapril Maleate (Vasotec) 10 mg PO BID [facility] Last Admin: 12/03/16 17:33 Dose: 10 mg Enoxaparin Sodium (Lovenox) 40 mg SC DAILY [facility] Hydralazine HCl (Apresoline) 25 mg PO TID [facility] Last Admin: 12/03/16 17:33 Dose: 25 mg Hydromorphone HCl (Dilaudid) 0.5 mg IVP Q8H PRN PRN Reason: Pain, Mild (1-3) Last Admin: 12/03/16 13:08 Dose: 0.5 mg Sodium Chloride (Sodium Chloride 0.9%) 1,000 mls @ 80 mls/hr IV .[id number] [facility] Last Admin: 12/03/16 21:51 Dose: Not Given Ibuprofen (Motrin Tab) 400 mg PO Q8 PRN PRN Reason: pain Last Admin: 12/03/16 17:38 Dose: 400 mg Lorazepam (Ativan) 1 mg IVP Q8 PRN PRN Reason: Agitation Magnesium Hydroxide (Milk Of Magnesia) 30 ml PEG DAILY [facility] Last Admin: 12/03/16 09:16 Dose: Not Given Pantoprazole Sodium (Protonix Inj) 40 mg IVP DAILY [facility] Last Admin: 12/03/16 09:16 Dose: Not Given Paroxetine HCl (Paxil) 20 mg PO DAILY PRN PRN Reason: Anxiety Pneumococcal Polyvalent Vaccine (Pneumovax 23 Vaccine) 0.5 ml IM .ONCE ONE Stop: 12/04/16 12:01 Rosuvastatin Calcium (Crestor) 20 mg PEG [facility] Last Admin: 12/03/16 21:51 Dose: Not Given Results - Vital Signs Recent Vital Signs: Last Vital Signs Temp 97.5 F L 12/03/16 15:00 Pulse 55 L 12/03/16 15:00 Resp 20 12/03/16 15:00 BP 145/80 12/03/16 17:33 Pulse Ox 99 12/03/16 15:00 - Labs Result Diagrams: 12/04/16 03:12 12/04/16 05:39 Labs: Laboratory Results - last 24 hr 12/03/16 12/03/16 12/03/16 07:02 07:02 07:02 WBC 7.8 RBC 3.64 L Hgb 12.1 Hct 34.8 L MCV 95.8 H MCH 33.2 H MCHC 34.7 RDW 13.7 Plt Count 318 MPV 7.6 Neut % (Auto) 66.3 Lymph % (Auto) 21.7 Noble % (Auto) 9.2 Eos % (Auto) 1.7 Baso % (Auto) 1.1 Neut # 5.2 Lymph # 1.7 Noble # 0.7 Eos # 0.1 Baso # 0.1 PT 12.3 H INR 1.1 Sodium 135 Potassium 3.7 Chloride 98 Carbon Dioxide 23 Anion Gap 18 BUN 4 L Creatinine 0.4 L Est GFR ( Amer) > 60 Est GFR (Non-Af Amer) > 60 POC Glucose (mg/dL) Random Glucose 87 Calcium 9.0 Total Bilirubin 0.6 AST 29 ALT 31 Alkaline Phosphatase 137 H Total Protein 6.4 Albumin 3.0 L Globulin 3.5 Albumin/Globulin Ratio 0.9 L 12/03/16 12/03/16 12/03/16 20:18 20:24 20:24 WBC 16.9 H D RBC 3.15 L Hgb 10.3 L Hct 30.3 L MCV 96.0 H MCH 32.6 H MCHC 34.0 RDW 13.8 Plt Count 407 H MPV 7.3 Neut % (Auto) 71.1 Lymph % (Auto) 19.6 L Noble % (Auto) 7.4 Eos % (Auto) 0.9 Baso % (Auto) 1.0 Neut # 12.0 H Lymph # 3.3 Noble # 1.3 H Eos # 0.2 Baso # 0.2 PT INR Sodium 132 Potassium 4.3 Chloride 96 L Carbon Dioxide 22 Anion Gap 18 BUN 10 Creatinine 0.4 L Est GFR ( Amer) > 60 Est GFR (Non-Af Amer) > 60 POC Glucose (mg/dL) 112 H Random Glucose 96 Calcium 8.1 L Total Bilirubin 0.7 AST 24 ALT 31 Alkaline Phosphatase 124 Total Protein 5.8 L Albumin 2.6 L Globulin 3.2 Albumin/Globulin Ratio 0.8 L 12/03/16 21:14 WBC RBC Hgb Hct MCV MCH MCHC RDW Plt Count MPV Neut % (Auto) Lymph % (Auto) Noble % (Auto) Eos % (Auto) Baso % (Auto) Neut # Lymph # Noble # Eos # Baso # PT INR Sodium Potassium Chloride Carbon Dioxide Anion Gap BUN Creatinine Est GFR ( Amer) Est GFR (Non-Af Amer) POC Glucose (mg/dL) 105 Random Glucose Calcium Total Bilirubin AST ALT Alkaline Phosphatase Total Protein Albumin Globulin Albumin/Globulin Ratio
[2016-12-04] MEDS ORDERED: Sodium Chloride 0.9% 500 ML IV ONE (02:32)
[2016-12-04 03:17] LABS: BASO # 0.1 K/uL (0.0-0.2); BASO % 0.8 % (0.0-2.0); EOS % 0.2 % (0.0-4.0); HEMATOCRIT 19.3 % (35.0-51.0); LYMPH # 2.2 K/uL (1.0-4.3); LYMPH % 17.6 % (20.0-40.0); MEAN CELL VOLUME 97.1 fL (80.0-94.0); MEAN CORPUSCULAR HEMOGLOBIN 33.3 pg (27.0-31.0); MEAN CORPUSCULAR HGB CONC 34.3 g/dL (33.0-37.0); MEAN PLATELET VOLUME 7.7 fL (7.2-11.7); MONO # 0.8 K/uL (0.0-0.8); MONO % 6.1 % (0.0-10.0); RED CELL DISTRIBUTION WIDTH 13.8 % (11.5-14.5); WHITE BLOOD COUNT 12.5 K/uL (4.8-10.8)
--- NOTE | 2016-12-04 03:29 | CP.PCM.PN ---
Subjective - Date & Time of Evaluation Date of Evaluation: 12/04/16 Time of Evaluation: 03:00 - Subjective Subjective: I was called to see this patient for hypotension and blood in the stool. On arrival, vitals were BP 92/73 and pulse 79. Upon arrival, the patient stated that he felt "queasy." This was later clarified to mean that the patient felt lightheaded and dizzy. Patient was still alert and oriented x3. Call was placed to the plastic fixture builder who requested stat NS 500 cc bolus, cbc, type and cross, and transfer to ICU. Orders to transfuse placed. Patient consented. CMP and Coags ordered. Blood pressure medications held. One dose of Protonix 80 mg IVP STAT followed by Protonix drip at 8cc/hr started. H/H 6.6/19.3 dropped from 10.3/30.3 Call placed out to Dr. Vera's answering service. Dr. Komal Beatty fellow communication technician responded and will come see the patient. Patient has received a total of 2L of NS IV bolus since PEG procedure. Calls placed to admitting physician Dr. Lomeli's service and two messages were left notifying him of events. Objective - Vital Signs/Intake and Output Vital Signs (last 24 hours): Temp Pulse Resp BP Pulse Ox 97.6 F 84 18 96/55 L 95 12/04/16 02:29 12/04/16 02:29 12/04/16 02:29 12/04/16 02:29 12/04/16 02:29 Intake and Output: 12/03/16 12/04/16 18:59 06:59 Intake Total 1120 Output Total 600 Balance 520 - Medications Medications: Current Medications Acetaminophen (Tylenol 650 Mg Supp) 650 mg [place] Q6 PRN PRN Reason: Fever >100.4 F Acetylcysteine (Acetylcysteine 20%) 2 ml INH RBID [facility] Last Admin: 12/03/16 20:01 Dose: Not Given Albuterol/Ipratropium (Duoneb 3 Mg/0.5 Mg (3 Ml) Ud) 3 ml INH RQID [facility] Last Admin: 12/03/16 20:01 Dose: Not Given Bacitracin (Bacitracin) 0 gm TOP BID [facility] Last Admin: 12/03/16 17:34 Dose: 1 applic Clonidine HCl (Catapres Tts1 0.1 Mg/24 Hr) 1 patch TD QWK [facility] Enalapril Maleate (Vasotec) 10 mg PO BID [facility] Last Admin: 12/03/16 17:33 Dose: 10 mg Enoxaparin Sodium (Lovenox) 40 mg SC DAILY [facility] Hydralazine HCl (Apresoline) 25 mg PO TID [facility] Last Admin: 12/03/16 17:33 Dose: 25 mg Hydromorphone HCl (Dilaudid) 0.5 mg IVP Q8H PRN PRN Reason: Pain, Mild (1-3) Last Admin: 12/03/16 13:08 Dose: 0.5 mg Sodium Chloride (Sodium Chloride 0.9%) 1,000 mls @ 80 mls/hr IV .[id number] [facility] Last Admin: 12/03/16 21:51 Dose: Not Given Ibuprofen (Motrin Tab) 400 mg PO Q8 PRN PRN Reason: pain Last Admin: 12/03/16 17:38 Dose: 400 mg Lorazepam (Ativan) 1 mg IVP Q8 PRN PRN Reason: Agitation Magnesium Hydroxide (Milk Of Magnesia) 30 ml PEG DAILY [facility] Last Admin: 12/03/16 09:16 Dose: Not Given Pantoprazole Sodium (Protonix Inj) 40 mg IVP DAILY [facility] Last Admin: 12/03/16 09:16 Dose: Not Given Paroxetine HCl (Paxil) 20 mg PO DAILY PRN PRN Reason: Anxiety Pneumococcal Polyvalent Vaccine (Pneumovax 23 Vaccine) 0.5 ml IM .ONCE ONE Stop: 12/04/16 12:01 Rosuvastatin Calcium (Crestor) 20 mg PEG HS [facility] Last Admin: 12/03/16 21:51 Dose: Not Given - Labs Labs: 12/03/16 20:24 12/03/16 20:24 PT 12.3 SECONDS (9.7-12.2) H 12/03/16 07:02 INR 1.1 12/03/16 07:02 APTT 35 SECONDS (21-34) H 11/30/16 21:31
[2016-12-04] MEDS ORDERED: Pantoprazole 80 MG in Sodium Chloride 0.9% 100 ML IVP SCH (03:30)
[2016-12-04] MEDS: Sodium Chloride 0.9% 1,000 ML IV SCH ×3 (04:49→20:00)
--- NOTE | 2016-12-04 05:18 | CP.PCM.PN ---
Subjective - Date & Time of Evaluation Date of Evaluation: 12/04/16 Time of Evaluation: 04:45 - Subjective Subjective: PGY4 GI Follow-up Pt seen and examined bedside in the ICU Overnight events noted, contacted by resident Dr Murphy in regards to BRBPR Pt had an active drop in h/h ~10 to 6 with an episode of low SBP ~ 95 S/P bolus of PPI protonix 80mg IV and drip actively running Currently denies any abd pain,chest pain or SOB Pt had x2 melonic to [place] BM since in the ICU ROS: 10 point ROS conducted, neg other than above Objective - Vital Signs/Intake and Output Vital Signs (last 24 hours): Temp Pulse Resp BP Pulse Ox 97.6 F 84 18 96/55 L 95 12/04/16 02:29 12/04/16 02:29 12/04/16 02:29 12/04/16 02:29 12/04/16 02:29 Intake and Output: 12/03/16 12/04/16 18:59 06:59 Intake Total 1120 740 Output Total 600 Balance 520 740 - Medications Medications: Current Medications Acetaminophen (Tylenol 650 Mg Supp) 650 mg [place] Q6 PRN PRN Reason: Fever >100.4 F Acetylcysteine (Acetylcysteine 20%) 2 ml INH RBID [facility] Last Admin: 12/03/16 20:01 Dose: Not Given Albuterol/Ipratropium (Duoneb 3 Mg/0.5 Mg (3 Ml) Ud) 3 ml INH RQID [facility] Last Admin: 12/03/16 20:01 Dose: Not Given Bacitracin (Bacitracin) 0 gm TOP BID [facility] Last Admin: 12/03/16 17:34 Dose: 1 applic Clonidine HCl (Catapres Tts1 0.1 Mg/24 Hr) 1 patch TD QWK [facility] Enalapril Maleate (Vasotec) 10 mg PO BID [facility] Last Admin: 12/03/16 17:33 Dose: 10 mg Enoxaparin Sodium (Lovenox) 40 mg SC DAILY [facility] Hydralazine HCl (Apresoline) 25 mg PO TID [facility] Last Admin: 12/03/16 17:33 Dose: 25 mg Hydromorphone HCl (Dilaudid) 0.5 mg IVP Q8H PRN PRN Reason: Pain, Mild (1-3) Last Admin: 12/03/16 13:08 Dose: 0.5 mg Sodium Chloride (Sodium Chloride 0.9%) 1,000 mls @ 80 mls/hr IV .[id number] [facility] Last Admin: 12/04/16 04:49 Dose: 80 mls/hr Pantoprazole Sodium 80 mg/ (Sodium Chloride) 100 mls @ 10 mls/hr IVP .Q10H MACIEL PRN Reason: 8 MG/HR Last Admin: 12/04/16 04:38 Dose: 10 mls/hr Lorazepam (Ativan) 1 mg IVP Q8 PRN PRN Reason: Agitation Magnesium Hydroxide (Milk Of Magnesia) 30 ml PEG DAILY [facility] Last Admin: 12/03/16 09:16 Dose: Not Given Metoclopramide HCl (Reglan) 10 mg IVP STAT [facility] Stop: 12/04/16 05:13 Paroxetine HCl (Paxil) 20 mg PO DAILY PRN PRN Reason: Anxiety Pneumococcal Polyvalent Vaccine (Pneumovax 23 Vaccine) 0.5 ml IM .ONCE ONE Stop: 12/04/16 12:01 Rosuvastatin Calcium (Crestor) 20 mg PEG HS [facility] Last Admin: 12/03/16 21:51 Dose: Not Given - Labs Labs: 12/04/16 03:12 12/03/16 20:24 PT 12.3 SECONDS (9.7-12.2) H 12/03/16 07:02 INR 1.1 12/03/16 07:02 APTT 35 SECONDS (21-34) H 11/30/16 21:31 - Constitutional Appears: Well, No Acute Distress, Cachectic - Head Exam Head Exam: ATRAUMATIC, NORMOCEPHALIC - Eye Exam Eye Exam: Normal appearance - ENT Exam ENT Exam: Mucous Membranes Moist, Normal Exam - Respiratory Exam Respiratory Exam: Clear to Ausculation Bilateral, NORMAL BREATHING PATTERN. absent: Rales, Rhonchi, Wheezes, Respiratory Distress - Cardiovascular Exam Cardiovascular Exam: REGULAR RHYTHM, +S1, +S2 - GI/Abdominal Exam GI & Abdominal Exam: Soft, Hyperactive Bowel Sounds. absent: Guarding, Rigid, Tenderness, Organomegaly, Rebound Additional comments: PEG is intact, no bleeding, Gastric lavage via PEG produced coffee-ground like material, no active bright red blood - Rectal Exam Additional comments: Melonic stool mixed with maroon with streaked of bright red blood. - Extremities Exam Extremities Exam: absent: Joint Swelling, Pedal Edema - Neurological Exam Neurological Exam: Alert, Awake, Normal Gait, Oriented x3 - Psychiatric Exam Psychiatric exam: Normal Affect, Normal Mood - Skin Skin Exam: Dry, Intact, Normal Color, Warm Assessment and Plan - Assessment and Plan (Free Text) Assessment: Patient is a 56yo male with PMHx significant for recent CVA with left hemiparesis along with dysarthria/dysphagia s/p PEG tube placement on 11/22/16, EtOH abuse, HTN and chronic back pain who presented to the ED from [place] for inadvertent removal of his recently placed gastrostomy tube; s/p PEG replacement 12/03/16; Pt had sudden drop in hgb and coffee-grounds via lavage -Upper GI Bleed, coffee-grounds on lavage, stable hemodynamically at this time -Inadvertent removal of PEG tube s/p replacement -Recent CVA with dysphagia, L hemiparesis -HTN -H/O EtOH abuse Plan: -Pt was assessed at bedside, vitals are stable BP is ~110/64 and HR ~84 -Lavage only produced coffee-ground -pt responded to 500cc of fluids -agree with PRBC -maintain hgb >7 -s/p Protonix IV 80mg x1, continue PPI drip -repeat CBC after transfusion -continue to hold antiplatlets and anticoag for now -maintain IV access x2 -though pt is alert and oriented x3, will call pt's sister and inform of events and get consent for possible EGD -recommend keeping the pt in the ICU for now, will do an EGD if pt is still actively bleeding -Gave pt reglan 10mg IV x1 in anticipation of possible EGD Will D/W Dr. Rose
[2016-12-04 05:50] LABS: INR 1.2
[2016-12-04 06:02] LABS: CHLORIDE 103 mmol/L (98-107)
[2016-12-04 06:03] LABS: POTASSIUM 4.1 mmol/L (3.6-5.2); SODIUM 135 mmol/L (132-148)
[2016-12-04 06:05] LABS: BILIRUBIN,TOTAL 0.5 mg/dL (0.2-1.3); CARBON DIOXIDE 21 mmol/L (22-30); GFR AFRICAN-AMERICAN > 60
[2016-12-04 06:06] LABS: ALB/GLOB RATIO 0.9 (1.0-2.1); ALKALINE PHOSPHATASE 105 U/L (38-126); ALT/SGPT 27 U/L (21-72); AST/SGOT 15 U/L (17-59); BLOOD UREA NITROGEN 21 mg/dL (9-20); CALCIUM 7.7 mg/dl (8.6-10.4); GLUCOSE,RANDOM 88 mg/dL (75-110)
[2016-12-04] MEDS: Acetylcysteine 20% Inhal Soln (4ml) INH SCH ×2 (07:55→19:44)
[2016-12-04] MEDS: Albuterol-Ipratrop 3 mg / 0.5 (3 ml) UD INH SCH ×4 (07:56→19:44)
[2016-12-04] MEDS: HYDROmorphone 0.5 mg/0.5 ml ISec IVP PRN ×2 (09:00→17:01)
[2016-12-04] MEDS ORDERED: Influenza Virus Vaccine (Afluria Inactive dont use ) IM ONE (10:00)
[2016-12-04 10:21] LABS: BASO # 0.1 K/uL (0.0-0.2); BASO % 0.5 % (0.0-2.0); EOS % 0.3 % (0.0-4.0); HEMATOCRIT 22.7 % (35.0-51.0); LYMPH # 2.1 K/uL (1.0-4.3); LYMPH % 14.8 % (20.0-40.0); MEAN CORPUSCULAR HEMOGLOBIN 31.3 pg (27.0-31.0); MEAN CORPUSCULAR HGB CONC 33.6 g/dL (33.0-37.0); MEAN PLATELET VOLUME 7.9 fL (7.2-11.7); MONO # 0.8 K/uL (0.0-0.8); MONO % 5.9 % (0.0-10.0); RED CELL DISTRIBUTION WIDTH 16.4 % (11.5-14.5); WHITE BLOOD COUNT 14.2 K/uL (4.8-10.8)
[2016-12-04 10:22] LABS: MEAN CELL VOLUME 93.2 fL (80.0-94.0)
[2016-12-04] MEDS ORDERED: EPINEPHrine 1 mg/ml (1:1000) Inj ONE (10:36)
[2016-12-04] MEDS ORDERED: Midazolam 2 MG/2 ML VIAL ONE (11:28)
[2016-12-04] MEDS ORDERED: Propofol 10 mg/ml Inj (20 ML) ONE (11:28)
[2016-12-04] MEDS: Magnesium Hydroxide Susp 30 ml UD PEG SCH (11:49)
[2016-12-04] MEDS ORDERED: Pneumococcal 23-Valent Vaccine IM ONE (12:00)
[2016-12-04] MEDS: Silver Nitrate Topical - Stick ONE ×2 (12:00→13:03)
[2016-12-04] MEDS: Bacitracin Ointment 30 GM TUBE TOP SCH ×2 (12:39→17:07)
[2016-12-04] MEDS: Pantoprazole 80 MG in Sodium Chloride 0.9% 100 ML IV SCH ×3 (12:41→22:54)
[2016-12-04] MEDS ORDERED: Influenza Vaccine 60 mcg/0.5 mL SYR (4YR UP) IM ONE (12:45)
--- NOTE | 2016-12-04 14:36 | CP.PCM.PN ---
Subjective - Date & Time of Evaluation Date of Evaluation: 12/04/16 Time of Evaluation: 14:20 - Subjective Subjective: clinically same Objective - Vital Signs/Intake and Output Vital Signs (last 24 hours): Temp Pulse Resp BP Pulse Ox 97.9 F 66 16 129/57 L 100 12/04/16 13:45 12/04/16 14:00 12/04/16 13:45 12/04/16 14:00 12/04/16 14:00 Intake and Output: 12/04/16 12/04/16 06:59 18:59 Intake Total 990 1090 Output Total 1000 Balance -10 1090 - Medications Medications: Current Medications Acetaminophen (Tylenol 650 Mg Supp) 650 mg [place] Q6 PRN PRN Reason: Fever >100.4 F Acetylcysteine (Acetylcysteine 20%) 2 ml INH RBID [facility] Last Admin: 12/04/16 07:55 Dose: 2 ml Albuterol/Ipratropium (Duoneb 3 Mg/0.5 Mg (3 Ml) Ud) 3 ml INH RQID [facility] Last Admin: 12/04/16 11:45 Dose: Not Given Bacitracin (Bacitracin) 0 gm TOP BID [facility] Last Admin: 12/04/16 12:39 Dose: 1 applic Clonidine HCl (Catapres Tts1 0.1 Mg/24 Hr) 1 patch TD QWK [facility] Enalapril Maleate (Vasotec) 10 mg PO BID [facility] Last Admin: 12/03/16 17:33 Dose: 10 mg Enoxaparin Sodium (Lovenox) 40 mg SC DAILY [facility] Hydralazine HCl (Apresoline) 25 mg PO TID [facility] Last Admin: 12/03/16 17:33 Dose: 25 mg Hydromorphone HCl (Dilaudid) 0.5 mg IVP Q8H PRN PRN Reason: Pain, Mild (1-3) Last Admin: 12/04/16 09:00 Dose: 0.5 mg Sodium Chloride (Sodium Chloride 0.9%) 1,000 mls @ 80 mls/hr IV .[id number] [facility] Last Admin: 12/04/16 04:49 Dose: 80 mls/hr Pantoprazole Sodium 80 mg/ (Sodium Chloride) 100 mls @ 10 mls/hr IV .Q10H [facility] PRN Reason: 8 MG/HR Last Admin: 12/04/16 12:41 Dose: 10 mls/hr Lorazepam (Ativan) 1 mg IVP Q8 PRN PRN Reason: Agitation Magnesium Hydroxide (Milk Of Magnesia) 30 ml PEG DAILY [facility] Last Admin: 12/04/16 11:49 Dose: Not Given Paroxetine HCl (Paxil) 20 mg PO DAILY PRN PRN Reason: Anxiety Rosuvastatin Calcium (Crestor) 20 mg PEG HS [facility] Last Admin: 12/03/16 21:51 Dose: Not Given - Labs Labs: 12/04/16 10:17 12/04/16 05:39 PT 13.9 SECONDS (9.7-12.2) H 12/04/16 05:39 INR 1.2 12/04/16 05:39 APTT 33 SECONDS (21-34) 12/04/16 05:39 - Constitutional Appears: Well - Head Exam Head Exam: ATRAUMATIC, NORMAL INSPECTION, NORMOCEPHALIC - Eye Exam Eye Exam: EOMI, Normal appearance, PERRL Pupil Exam: NORMAL ACCOMODATION, PERRL - ENT Exam ENT Exam: Mucous Membranes Moist, Normal Exam - Neck Exam Neck Exam: Full ROM, Normal Inspection. absent: Lymphadenopathy - Respiratory Exam Respiratory Exam: Decreased Breath Sounds - Cardiovascular Exam Cardiovascular Exam: REGULAR RHYTHM, +S1, +S2 - GI/Abdominal Exam GI & Abdominal Exam: Soft, Diminished Bowel Sounds - Rectal Exam Rectal Exam: Deferred Assessment and Plan - Assessment and Plan (Free Text) Plan: Casein and discussed with that. GI bleeding status post seen by GI fellow CBC CMP every 12 Hold enoxaparin Hold hydralazine Hold clonidine patch Further workup by GI Patient is transferred to the ICU
--- NOTE | 2016-12-04 15:30 | CP.CCUPN ---
CCU Subjective - Physician Review Events Since Last Encounter (Free Text): 12/04/16 15:28 CCM 56 yo male from [place] b/o dislodged PEG. Pt with hx HTN /Anemia /Colitis /GERD /PEG / Hemorrhoids. Pt had PEG replaced today. Had some chest discomfort in AM. Found with low BP 76/35 and dizzy, improved to 95/64 after 500cc NS. Pt had 2nd drip to 77/53 but asymptomatic. No sob/n /v /dizziness /chest pain. Pt had 1Liter NS and BP improved to 101/59 P-85 ROS- as noted All- NKDA Social- ex- etoh Meds- reviewed FH- Unknown PE Alert male, nad T-97.3 Neck- no jvdlungs- bilat bs Heart-rr ABd-+ PEG, bs+, soft, nontender Ext- nontender Neuro- nonfocal Labs Reviewed A&P s/p Hypotension-? volume depletion /? infection s/p PEG re-insertion Hx HTN Anemia GERD BP improved after IV NS cont IV fluid check cultures maintain optimal lytes cont treatment on floor re-consult prn spoke to the travograph operator. Patient underwent upper endoscopy Significant hematoma adjacent to the PEG tube noted. We will repeat the hemoglobin. Received are 2 units of blood transfusion. Stable clinically. Possibly transferring hemoglobin stable CCU Objective - Vital Signs / Intake & Output Vital Signs (Last 4 hours): Vital Signs Temp Pulse Resp BP Pulse Ox 12/04/16 14:14 64 154/74 H 100 12/04/16 14:00 66 129/57 L 100 12/04/16 13:45 97.9 F 67 16 129/57 L 100 12/04/16 13:15 74 136/71 100 12/04/16 13:08 79 98 12/04/16 13:00 98 F 79 16 136/71 100 12/04/16 12:44 86 140/74 12/04/16 12:41 91 H 138/76 98 12/04/16 12:39 90 139/71 96 12/04/16 12:36 93 H 141/81 97 12/04/16 12:32 77 137/71 100 12/04/16 12:30 98.3 F 77 16 134/67 98 12/04/16 12:29 79 134/67 100 12/04/16 12:26 78 137/69 100 12/04/16 12:23 85 134/65 98 12/04/16 12:20 101 H 143/73 97 12/04/16 12:17 89 151/72 H 100 12/04/16 12:15 98.5 F 96 H 18 144/86 100 12/04/16 12:14 100 H 144/86 100 12/04/16 12:11 99 H 136/82 75 L 12/04/16 12:08 89 110/72 100 12/04/16 12:05 90 116/77 100 12/04/16 12:00 98.5 F 75 18 116/77 97 12/04/16 11:51 61 86/53 L 100 12/04/16 11:48 74 95/56 L 100 12/04/16 11:45 98.6 F 67 18 95/56 L 100 12/04/16 11:40 67 106/86 100 12/04/16 11:30 97.6 F 73 16 115/60 100 Intake and Output (Last 8hrs): Intake & Output 12/04/16 12/04/16 12/04/16 06:59 14:59 22:59 Intake Total 990 1090 90 Output Total 1000 Balance -10 1090 90 Intake: Intake, IV Amount 990 440 90 Right Forearm 360 80 Right Upper arm 990 80 10 Oral 0 Blood Product 650 Output: Urine 300 Urine, Voided 300 Stool 700 Other: # Voids Urine, Voided 1 # Bowel Movements 1 - Medications Active Medications: Active Medications Generic Name Dose Route Start Last Admin Trade Name Freq PRN Reason Stop Dose Admin Acetaminophen 650 mg 11/30/16 22:11 Tylenol 650 Mg Supp NM Q6 PRN Fever >100.4 F Acetylcysteine 2 ml 12/01/16 08:00 12/04/16 07:55 Acetylcysteine 20% INH 2 ml RBID MACIEL Administration Albuterol/Ipratropium 3 ml 12/01/16 08:00 12/04/16 11:45 Duoneb 3 Mg/0.5 Mg (3 Ml) Ud INH Not Given RQID [facility]IEL Bacitracin 0 gm 12/01/16 18:00 12/04/16 12:39 Bacitracin TOP 1 applic BID MACIEL Administration Enalapril Maleate 10 mg 12/01/16 10:00 09/29/17 17:33 Vasotec PO 10 mg BID MACIEL Administration Enoxaparin Sodium 40 mg 12/01/16 10:00 Lovenox SC DAILY MAC[facility] Hydralazine HCl 25 mg 12/01/16 18:00 12/03/16 17:33 Apresoline PO 25 mg TID MAC[facility]EL Administration Hydromorphone HCl 0.5 mg 12/02/16 18:00 12/04/16 09:00 Dilaudid IVP 0.5 mg Q8H PRN Administration Pain, Mild (1-3) Sodium Chloride 1,000 mls @ 80 mls/hr 12/02/16 18:00 12/04/16 10:00 Sodium Chloride 0.9% IV Not Given .[id number] [facility] Pantoprazole Sodium 80 mg/ 100 mls @ 10 mls/hr 12/04/16 10:00 12/04/16 12:41 Sodium Chloride IV 10 mls/hr .Q10H [facility] Administration 8 MG/HR Lorazepam 1 mg 12/01/16 14:48 Ativan IVP Q8 PRN Agitation Magnesium Hydroxide 30 ml 12/01/16 10:00 12/04/16 11:49 Milk Of Magnesia PEG Not Given DAILY [facility] Paroxetine HCl 20 mg 11/30/16 22:11 Paxil PO DAILY PRN Anxiety Rosuvastatin Calcium 20 mg 12/01/16 22:00 12/03/16 21:51 Crestor PEG Not Given HS MACIEL - Patient Studies Lab Studies: Lab Studies 12/04/16 12/04/16 12/04/16 Range/Units 10:17 05:39 05:39 WBC 14.2 H (4.8-10.8) K/uL RBC 2.44 L (4.40-5.90) Mil/uL Hgb 7.6 L (12.0-18.0) g/dL Hct 22.7 L (35.0-51.0) % MCV 93.2 D (80.0-94.0) fL MCH 31.3 H (27.0-31.0) pg MCHC 33.6 (33.0-37.0) g/dL RDW 16.4 H (11.5-14.5) % Plt Count 262 (130-400) K/uL MPV 7.9 (7.2-11.7) fL Neut % (Auto) 78.5 H (50.0-75.0) % Lymph % (Auto) 14.8 L (20.0-40.0) % Mccone % (Auto) 5.9 (0.0-10.0) % Eos % (Auto) 0.3 (0.0-4.0) % Baso % (Auto) 0.5 (0.0-2.0) % Neut # 11.1 H (1.8-7.0) K/uL Lymph # 2.1 (1.0-4.3) K/uL Mccone # 0.8 (0.0-0.8) K/uL Eos # 0.0 (0.0-0.7) K/uL Baso # 0.1 (0.0-0.2) K/uL PT 13.9 H (9.7-12.2) SECONDS INR 1.2 APTT 33 (21-34) SECONDS Sodium 135 (132-148) mmol/L Potassium 4.1 (3.6-5.2) mmol/L Chloride 103 (98-107) mmol/L Carbon Dioxide 21 L (22-30) mmol/L Anion Gap 15 (10-20) BUN 21 H (9-20) mg/dL Creatinine 0.3 L (0.8-1.5) MG/DL Est GFR ( Amer) > 60 Est GFR (Non-Af Amer) > 60 POC Glucose (mg/dL) (65-110) mg/dL Random Glucose 88 (75-110) mg/dL Calcium 7.7 L (8.6-10.4) mg/dl Total Bilirubin 0.5 (0.2-1.3) mg/dL AST 15 L D (17-59) U/L ALT 27 (21-72) U/L Alkaline Phosphatase 105 (38-126) U/L Total Protein 5.0 L (6.3-8.3) g/dL Albumin 2.3 L (3.5-5.0) g/dL Globulin 2.7 (2.2-3.9) gm/dL Albumin/Globulin Ratio 0.9 L (1.0-2.1) Blood Type Antibody Screen 12/04/16 12/04/16 12/03/16 Range/Units 03:12 03:12 21:14 WBC 12.5 H (4.8-10.8) K/uL RBC 1.99 L (4.40-5.90) Mil/uL Hgb 6.6 L D (12.0-18.0) g/dL Hct 19.3 L (35.0-51.0) % MCV 97.1 H (80.0-94.0) fL MCH 33.3 H (27.0-31.0) pg MCHC 34.3 (33.0-37.0) g/dL RDW 13.8 (11.5-14.5) % Plt Count 288 D (130-400) K/uL MPV 7.7 (7.2-11.7) fL Neut % (Auto) 75.3 H (50.0-75.0) % Lymph % (Auto) 17.6 L (20.0-40.0) % Mccone % (Auto) 6.1 (0.0-10.0) % Eos % (Auto) 0.2 (0.0-4.0) % Baso % (Auto) 0.8 (0.0-2.0) % Neut # 9.4 H (1.8-7.0) K/uL Lymph # 2.2 (1.0-4.3) K/uL Mccone # 0.8 (0.0-0.8) K/uL Eos # 0.0 (0.0-0.7) K/uL Baso # 0.1 (0.0-0.2) K/uL PT (9.7-12.2) SECONDS INR APTT (21-34) SECONDS Sodium (132-148) mmol/L Potassium (3.6-5.2) mmol/L Chloride (98-107) mmol/L Carbon Dioxide (22-30) mmol/L Anion Gap (10-20) BUN (9-20) mg/dL Creatinine (0.8-1.5) MG/DL Est GFR ( Amer) Est GFR (Non-Af Amer) POC Glucose (mg/dL) 105 (65-110) mg/dL Random Glucose (75-110) mg/dL Calcium (8.6-10.4) mg/dl Total Bilirubin (0.2-1.3) mg/dL AST (17-59) U/L ALT (21-72) U/L Alkaline Phosphatase (38-126) U/L Total Protein (6.3-8.3) g/dL Albumin (3.5-5.0) g/dL Globulin (2.2-3.9) gm/dL Albumin/Globulin Ratio (1.0-2.1) Blood Type B POSITIVE Antibody Screen Negative 12/03/16 12/03/16 12/03/16 Range/Units 20:24 20:24 20:18 WBC 16.9 H D (4.8-10.8) K/uL RBC 3.15 L (4.40-5.90) Mil/uL Hgb 10.3 L (12.0-18.0) g/dL Hct 30.3 L (35.0-51.0) % MCV 96.0 H (80.0-94.0) fL MCH 32.6 H (27.0-31.0) pg MCHC 34.0 (33.0-37.0) g/dL RDW 13.8 (11.5-14.5) % Plt Count 407 H (130-400) K/uL MPV 7.3 (7.2-11.7) fL Neut % (Auto) 71.1 (50.0-75.0) % Lymph % (Auto) 19.6 L (20.0-40.0) % Mccone % (Auto) 7.4 (0.0-10.0) % Eos % (Auto) 0.9 (0.0-4.0) % Baso % (Auto) 1.0 (0.0-2.0) % Neut # 12.0 H (1.8-7.0) K/uL Lymph # 3.3 (1.0-4.3) K/uL Mccone # 1.3 H (0.0-0.8) K/uL Eos # 0.2 (0.0-0.7) K/uL Baso # 0.2 (0.0-0.2) K/uL PT (9.7-12.2) SECONDS INR APTT (21-34) SECONDS Sodium 132 (132-148) mmol/L Potassium 4.3 (3.6-5.2) mmol/L Chloride 96 L (98-107) mmol/L Carbon Dioxide 22 (22-30) mmol/L Anion Gap 18 (10-20) BUN 10 (9-20) mg/dL Creatinine 0.4 L (0.8-1.5) MG/DL Est GFR ( Amer) > 60 Est GFR (Non-Af Amer) > 60 POC Glucose (mg/dL) 112 H (65-110) mg/dL Random Glucose 96 (75-110) mg/dL Calcium 8.1 L (8.6-10.4) mg/dl Total Bilirubin 0.7 (0.2-1.3) mg/dL AST 24 (17-59) U/L ALT 31 (21-72) U/L Alkaline Phosphatase 124 (38-126) U/L Total Protein 5.8 L (6.3-8.3) g/dL Albumin 2.6 L (3.5-5.0) g/dL Globulin 3.2 (2.2-3.9) gm/dL Albumin/Globulin Ratio 0.8 L (1.0-2.1) Blood Type Antibody Screen Laboratory Results - last 24 hr 12/03/16 12/03/16 12/03/16 20:18 20:24 20:24 WBC 16.9 H D RBC 3.15 L Hgb 10.3 L Hct 30.3 L MCV 96.0 H MCH 32.6 H MCHC 34.0 RDW 13.8 Plt Count 407 H MPV 7.3 Neut % (Auto) 71.1 Lymph % (Auto) 19.6 L Mccone % (Auto) 7.4 Eos % (Auto) 0.9 Baso % (Auto) 1.0 Neut # 12.0 H Lymph # 3.3 Mccone # 1.3 H Eos # 0.2 Baso # 0.2 PT INR APTT Sodium 132 Potassium 4.3 Chloride 96 L Carbon Dioxide 22 Anion Gap 18 BUN 10 Creatinine 0.4 L Est GFR ( Amer) > 60 Est GFR (Non-Af Amer) > 60 POC Glucose (mg/dL) 112 H Random Glucose 96 Calcium 8.1 L Total Bilirubin 0.7 AST 24 ALT 31 Alkaline Phosphatase 124 Total Protein 5.8 L Albumin 2.6 L Globulin 3.2 Albumin/Globulin Ratio 0.8 L Blood Type Antibody Screen 12/03/16 12/04/16 12/04/16 21:14 03:12 03:12 WBC 12.5 H RBC 1.99 L Hgb 6.6 L D Hct 19.3 L MCV 97.1 H MCH 33.3 H MCHC 34.3 RDW 13.8 Plt Count 288 D MPV 7.7 Neut % (Auto) 75.3 H Lymph % (Auto) 17.6 L Mccone % (Auto) 6.1 Eos % (Auto) 0.2 Baso % (Auto) 0.8 Neut # 9.4 H Lymph # 2.2 Mccone # 0.8 Eos # 0.0 Baso # 0.1 PT INR APTT Sodium Potassium Chloride Carbon Dioxide Anion Gap BUN Creatinine Est GFR ( Amer) Est GFR (Non-Af Amer) POC Glucose (mg/dL) 105 Random Glucose Calcium Total Bilirubin AST ALT Alkaline Phosphatase Total Protein Albumin Globulin Albumin/Globulin Ratio Blood Type B POSITIVE Antibody Screen Negative 12/04/16 12/04/16 12/04/16 05:39 05:39 10:17 WBC 14.2 H RBC 2.44 L Hgb 7.6 L Hct 22.7 L MCV 93.2 D MCH 31.3 H MCHC 33.6 RDW 16.4 H Plt Count 262 MPV 7.9 Neut % (Auto) 78.5 H Lymph % (Auto) 14.8 L Mccone % (Auto) 5.9 Eos % (Auto) 0.3 Baso % (Auto) 0.5 Neut # 11.1 H Lymph # 2.1 Mccone # 0.8 Eos # 0.0 Baso # 0.1 PT 13.9 H INR 1.2 APTT 33 Sodium 135 Potassium 4.1 Chloride 103 Carbon Dioxide 21 L Anion Gap 15 BUN 21 H Creatinine 0.3 L Est GFR ( Amer) > 60 Est GFR (Non-Af Amer) > 60 POC Glucose (mg/dL) Random Glucose 88 Calcium 7.7 L Total Bilirubin 0.5 AST 15 L D ALT 27 Alkaline Phosphatase 105 Total Protein 5.0 L Albumin 2.3 L Globulin 2.7 Albumin/Globulin Ratio 0.9 L Blood Type Antibody Screen EKG/Cardiology Studies: Cardiology / EKG Studies 12/03/16 21:25 EKG [ELECTROCARDIOGRAM] Stat Comment: Mode Of Transportation: Reason For Exam: low BP Isolation: Contact Droplet Critical Care Progress Note - Nutrition Nutrition: Nutrition Category Date Time Status NPO Diet [DIET] Diets 12/02/16 Lunch Active
[2016-12-04 16:38] LABS: BASO # 0.1 K/uL (0.0-0.2); BASO % 0.5 % (0.0-2.0); EOS # 0.1 K/uL (0.0-0.7); EOS % 0.4 % (0.0-4.0); HEMATOCRIT 25.2 % (35.0-51.0); LYMPH # 2.4 K/uL (1.0-4.3); LYMPH % 16.8 % (20.0-40.0); MEAN CORPUSCULAR HGB CONC 34.2 g/dL (33.0-37.0); MEAN PLATELET VOLUME 7.4 fL (7.2-11.7); MONO # 1.1 K/uL (0.0-0.8); MONO % 7.3 % (0.0-10.0); RED CELL DISTRIBUTION WIDTH 17.3 % (11.5-14.5); WHITE BLOOD COUNT 14.5 K/uL (4.8-10.8)
[2016-12-04 16:40] LABS: MEAN CELL VOLUME 90.6 fL (80.0-94.0)
[2016-12-04 16:46] LABS: RBC URINE 5 /hpf (0-3); WBC URINE 1 /hpf (0-5)
[2016-12-04 17:28] LABS: URINE BILIRUBIN NEGATIVE (NEGATIVE); URINE COLOR YELLOW (YELLOW); URINE GLUCOSE (UA) NEGATIVE (Normal)
[2016-12-04 17:29] LABS: URINE BLOOD MODERATE (NEGATIVE); URINE KETONE NEGATIVE (NEGATIVE); URINE LEUKOCYTE ESTERASE NEGATIVE Leu/uL (Negative); URINE PROTEIN NEGATIVE (NEGATIVE); URINE UROBILINOGEN 0.2 mg/dL (0.2-1.0)
[2016-12-04 21:48] LABS: HEMATOCRIT 24.7 % (35.0-51.0); MEAN CELL VOLUME 89.8 fL (80.0-94.0); MEAN CORPUSCULAR HEMOGLOBIN 30.8 pg (27.0-31.0); MEAN CORPUSCULAR HGB CONC 34.3 g/dL (33.0-37.0); MEAN PLATELET VOLUME 7.2 fL (7.2-11.7); RED CELL DISTRIBUTION WIDTH 16.9 % (11.5-14.5); WHITE BLOOD COUNT 15.6 K/uL (4.8-10.8)
[2016-12-05] MEDS: Sodium Chloride 0.9% 1,000 ML IV SCH ×2 (02:05→14:03)
[2016-12-05] MEDS: Albuterol-Ipratrop 3 mg / 0.5 (3 ml) UD INH SCH ×4 (08:00→20:48)
[2016-12-05] MEDS: Acetylcysteine 20% Inhal Soln (4ml) INH SCH ×2 (08:00→20:47)
[2016-12-05 08:06] LABS: BASO # 0.1 K/uL (0.0-0.2); BASO % 0.7 % (0.0-2.0); EOS # 0.4 K/uL (0.0-0.7); EOS % 2.8 % (0.0-4.0); HEMATOCRIT 23.5 % (35.0-51.0); LYMPH # 1.5 K/uL (1.0-4.3); MEAN CELL VOLUME 90.8 fL (80.0-94.0); MEAN CORPUSCULAR HEMOGLOBIN 30.6 pg (27.0-31.0); MEAN CORPUSCULAR HGB CONC 33.7 g/dL (33.0-37.0); MEAN PLATELET VOLUME 7.5 fL (7.2-11.7); MONO # 0.9 K/uL (0.0-0.8); MONO % 6.1 % (0.0-10.0); WHITE BLOOD COUNT 15.2 K/uL (4.8-10.8)
[2016-12-05 08:25] LABS: CHLORIDE 99 mmol/L (98-107); POTASSIUM 3.4 mmol/L (3.6-5.2); SODIUM 133 mmol/L (132-148)
[2016-12-05 08:27] LABS: ALB/GLOB RATIO 0.9 (1.0-2.1); ALKALINE PHOSPHATASE 105 U/L (38-126); AST/SGOT 16 U/L (17-59); BILIRUBIN,TOTAL 0.9 mg/dL (0.2-1.3); CARBON DIOXIDE 25 mmol/L (22-30); GFR AFRICAN-AMERICAN > 60; TOTAL PROTEIN 5.4 g/dL (6.3-8.3)
[2016-12-05 08:28] LABS: ALT/SGPT 30 U/L (21-72); BLOOD UREA NITROGEN 9 mg/dL (9-20); CALCIUM 8.7 mg/dl (8.6-10.4); GLUCOSE,RANDOM 82 mg/dL (75-110)
--- NOTE | 2016-12-05 09:26 | CP.PCM.PN ---
<Komal Beatty - Last Filed: 12/05/16 09:26> Subjective - Date & Time of Evaluation Date of Evaluation: 12/05/16 Time of Evaluation: 09:00 - Subjective Subjective: PGY 4 GI Follow-up Pt seen and examined bedside No overnight events hgb stable nursing staff noted scant blood and black stool NPO and feeding still stopped ROS: 10 point ROS conducted neg other than above Objective - Vital Signs/Intake and Output Vital Signs (last 24 hours): Temp Pulse Resp BP Pulse Ox 98.2 F 78 15 134/72 99 12/05/16 04:00 12/05/16 08:00 12/05/16 08:00 12/05/16 07:14 12/05/16 04:00 Intake and Output: 12/05/16 12/05/16 06:59 18:59 Intake Total 1080 90 Output Total 350 1100 Balance 730 -1010 - Medications Medications: Current Medications Acetaminophen (Tylenol 650 Mg Supp) 650 mg OR Q6 PRN PRN Reason: Fever >100.4 F Acetylcysteine (Acetylcysteine 20%) 2 ml INH RBID [facility] Last Admin: 12/05/16 08:00 Dose: 2 ml Albuterol/Ipratropium (Duoneb 3 Mg/0.5 Mg (3 Ml) Ud) 3 ml INH RQID [facility] Last Admin: 12/05/16 08:00 Dose: 3 ml Bacitracin (Bacitracin) 0 gm TOP BID [facility] Last Admin: 12/04/16 17:07 Dose: 1 applic Enalapril Maleate (Vasotec) 10 mg PO BID [facility] Last Admin: 12/03/16 17:33 Dose: 10 mg Enoxaparin Sodium (Lovenox) 40 mg SC DAILY [facility] Hydralazine HCl (Apresoline) 25 mg PO TID [facility] Last Admin: 12/03/16 17:33 Dose: 25 mg Hydromorphone HCl (Dilaudid) 0.5 mg IVP Q8H PRN PRN Reason: Pain, Mild (1-3) Last Admin: 12/04/16 17:01 Dose: 0.5 mg Sodium Chloride (Sodium Chloride 0.9%) 1,000 mls @ 80 mls/hr IV .[id number] [facility] Last Admin: 12/05/16 02:05 Dose: 80 mls/hr Lorazepam (Ativan) 1 mg IVP Q8 PRN PRN Reason: Agitation Last Admin: 12/04/16 21:15 Dose: 1 mg Magnesium Hydroxide (Milk Of Magnesia) 30 ml PEG DAILY [facility] Last Admin: 12/04/16 11:49 Dose: Not Given Pantoprazole Sodium (Protonix Inj) 40 mg IVP Q12H [facility] Paroxetine HCl (Paxil) 20 mg PO DAILY PRN PRN Reason: Anxiety Rosuvastatin Calcium (Crestor) 20 mg PEG HS [facility]IEL Last Admin: 12/04/16 21:18 Dose: Not Given - Labs Labs: 12/05/16 07:38 12/05/16 07:38 PT 13.9 SECONDS (9.7-12.2) H 12/04/16 05:39 INR 1.2 12/04/16 05:39 APTT 33 SECONDS (21-34) 12/04/16 05:39 - Constitutional Appears: Well, No Acute Distress - Head Exam Head Exam: ATRAUMATIC, NORMOCEPHALIC - Eye Exam Eye Exam: Normal appearance - Respiratory Exam Respiratory Exam: Clear to Ausculation Bilateral, NORMAL BREATHING PATTERN. absent: Rales, Rhonchi, Wheezes, Respiratory Distress - Cardiovascular Exam Cardiovascular Exam: REGULAR RHYTHM, +S1, +S2 - GI/Abdominal Exam GI & Abdominal Exam: Soft, Normal Bowel Sounds. absent: Tenderness, Diminished Bowel Sounds, Hernia, Organomegaly Additional comments: PEG intact, no bleeding, induration or discharge from insertion site - Extremities Exam Extremities Exam: absent: Joint Swelling, Pedal Edema - Neurological Exam Neurological Exam: Alert, Awake, Oriented x3 - Psychiatric Exam Psychiatric exam: Normal Affect, Normal Mood - Skin Skin Exam: Dry, Intact, Normal Color, Warm Assessment and Plan - Assessment and Plan (Free Text) Assessment: Patient is a 56yo male with PMHx significant for recent CVA with left hemiparesis along with dysarthria/dysphagia s/p PEG tube placement on 11/22/16, EtOH abuse, HTN and chronic back pain who [place] inadvertent removal of his recently placed gastrostomy tube; s/p PEG replacement 12/03/16; Pt had sudden drop in hgb and coffee-grounds via lavage -Upper GI Bleed, resolved, hgb stable -Inadvertent removal of PEG tube s/p replacement -Recent CVA with dysphagia, L hemiparesis -HTN -H/O EtOH abuse Plan: -s/p repeat EGD 12/04/16, epinephrine injected around the PEG bumper in the stomach, Gold probe applied at the distal esophagus to friable tissue -hgb stable ~ 8 -no reports of additional melena, hematemesis, or coffee-ground -remain NPO -can use PEG for feed and meds -discontinue IV PPI drip -start protonix 40mg IV BID -okay for downgrade -will sign off, please reconsult Will D/W Dr. Rose <Elana Rose MD - Last Filed: 12/05/16 14:10> Objective - Vital Signs/Intake and Output Vital Signs (last 24 hours): Temp Pulse Resp BP Pulse Ox 98.2 F 78 15 134/72 99 12/05/16 04:00 12/05/16 08:00 12/05/16 08:00 12/05/16 07:14 12/05/16 04:00 Intake and Output: 12/05/16 12/05/16 06:59 18:59 Intake Total 1080 90 Output Total 350 1100 Balance 730 -1010 - Medications Medications: Current Medications Acetaminophen (Tylenol 650 Mg Supp) 650 mg OR Q6 PRN PRN Reason: Fever >100.4 F Acetylcysteine (Acetylcysteine 20%) 2 ml INH RBID [facility] Last Admin: 12/05/16 08:00 Dose: 2 ml Albuterol/Ipratropium (Duoneb 3 Mg/0.5 Mg (3 Ml) Ud) 3 ml INH RQID [facility] Last Admin: 12/05/16 11:13 Dose: Not Given Bacitracin (Bacitracin) 0 gm TOP BID [facility] Last Admin: 12/05/16 10:42 Dose: 1 applic Enalapril Maleate (Vasotec) 10 mg PO BID [facility] Last Admin: 12/03/16 17:33 Dose: 10 mg Enoxaparin Sodium (Lovenox) 40 mg SC DAILY [facility] Hydralazine HCl (Apresoline) 25 mg PO TID [facility] Last Admin: 12/03/16 17:33 Dose: 25 mg Hydromorphone HCl (Dilaudid) 0.5 mg IVP Q8H PRN PRN Reason: Pain, Mild (1-3) Last Admin: 12/05/16 13:21 Dose: 0.5 mg Lorazepam (Ativan) 1 mg IVP Q8 PRN PRN Reason: Agitation Last Admin: 12/04/16 21:15 Dose: 1 mg Magnesium Hydroxide (Milk Of Magnesia) 30 ml PEG DAILY [facility] Last Admin: 12/05/16 10:41 Dose: 30 ml Pantoprazole Sodium (Protonix Inj) 40 mg IVP Q12H [facility] Last Admin: 12/05/16 10:14 Dose: 40 mg Paroxetine HCl (Paxil) 20 mg PO DAILY PRN PRN Reason: Anxiety Rosuvastatin Calcium (Crestor) 20 mg PEG HS [facility] Last Admin: 12/04/16 21:18 Dose: Not Given - Labs Labs: 12/05/16 07:38 12/05/16 07:38 PT 13.9 SECONDS (9.7-12.2) H 12/04/16 05:39 INR 1.2 12/04/16 05:39 APTT 33 SECONDS (21-34) 12/04/16 05:39 Attending/Attestation - Attestation I have personally seen and examined this patient.: Yes I have fully participated in the care of the patient.: Yes I have reviewed all pertinent clinical information, including history, physical exam and plan: Yes Notes (Text): 12/05/16 14:04 Patient seen and examined at bedside this am. This is a 56 yr old male with PMHx significant for recent CVA with left hemiparesis along with dysarthria/ dysphagia s/p PEG tube placement on 11/22/16, EtOH abuse, HTN and chronic back pain who [place] inadvertent removal of his recently placed gastrostomy tube; s/p PEG replacement 12/03/16. Post peg bleeding with melena and 4 gm drop in Hb mandating repeat endoscopy on 12/04/16 with clots found in internal bumper s/p epinephrine injection around incision site and gold probe at distal esophagus to friable tissue with grade 3 esophagitis. Hemostasis achieved. Hct stable. No overt bleeding in 24 hours. Kepp bumper tight. Aspiration precautions. local PEG care. May use PEG today for feeds and meds. Will sign off. Thank you for letting us participate in the care of your patient.
[2016-12-05] MEDS: Magnesium Hydroxide Susp 30 ml UD PEG SCH (10:41)
[2016-12-05] MEDS: Bacitracin Ointment 30 GM TUBE TOP SCH ×2 (10:42→18:04)
[2016-12-05] MEDS ORDERED: Potassium Chloride 20 mEq/15 ml LIQ UD PO ONE (12:30)
[2016-12-05] MEDS: HYDROmorphone 0.5 mg/0.5 ml ISec IVP PRN ×2 (13:21→20:37)
--- NOTE | 2016-12-05 16:37 | CP.PCM.PN ---
Subjective - Date & Time of Evaluation Date of Evaluation: 12/05/16 Time of Evaluation: 11:00 - Subjective Subjective: No events, no rectal bleeding noticed, gi evaluated and recommended to start feeds. Objective - Vital Signs/Intake and Output Vital Signs (last 24 hours): Temp Pulse Resp BP Pulse Ox 98.2 F 80 13 137/73 99 12/05/16 04:00 12/05/16 15:14 12/05/16 15:14 12/05/16 15:14 12/05/16 04:00 Intake and Output: 12/05/16 12/05/16 06:59 18:59 Intake Total 1080 595 Output Total 350 2400 Balance 730 -1805 - Medications Medications: Current Medications Acetaminophen (Tylenol 650 Mg Supp) 650 mg SC Q6 PRN PRN Reason: Fever >100.4 F Acetylcysteine (Acetylcysteine 20%) 2 ml INH RBID [facility] Last Admin: 12/05/16 08:00 Dose: 2 ml Albuterol/Ipratropium (Duoneb 3 Mg/0.5 Mg (3 Ml) Ud) 3 ml INH RQID [facility] Last Admin: 12/05/16 11:13 Dose: Not Given Bacitracin (Bacitracin) 0 gm TOP BID [facility] Last Admin: 12/05/16 10:42 Dose: 1 applic Enalapril Maleate (Vasotec) 10 mg PO BID [facility] Last Admin: 12/03/16 17:33 Dose: 10 mg Enoxaparin Sodium (Lovenox) 40 mg SC DAILY [facility] Hydralazine HCl (Apresoline) 25 mg PO TID [facility] Last Admin: 12/03/16 17:33 Dose: 25 mg Hydromorphone HCl (Dilaudid) 0.5 mg IVP Q8H PRN PRN Reason: Pain, Mild (1-3) Last Admin: 12/05/16 13:21 Dose: 0.5 mg Lorazepam (Ativan) 1 mg IVP Q8 PRN PRN Reason: Agitation Last Admin: 12/04/16 21:15 Dose: 1 mg Magnesium Hydroxide (Milk Of Magnesia) 30 ml PEG DAILY [facility] Last Admin: 12/05/16 10:41 Dose: 30 ml Pantoprazole Sodium (Protonix Inj) 40 mg IVP Q12H [facility] Last Admin: 12/05/16 10:14 Dose: 40 mg Paroxetine HCl (Paxil) 20 mg PO DAILY PRN PRN Reason: Anxiety Rosuvastatin Calcium (Crestor) 20 mg PEG HS [facility] Last Admin: 12/04/16 21:18 Dose: Not Given - Labs Labs: 12/05/16 07:38 12/05/16 07:38 PT 13.9 SECONDS (9.7-12.2) H 12/04/16 05:39 INR 1.2 12/04/16 05:39 APTT 33 SECONDS (21-34) 12/04/16 05:39 - Additional Findings Additional findings: * HEENT LENNOX * Neck Supple * Chest Clear * CVS regular, no gallop or rub * PA soft, b/s heard, peg in place * skin slight reduced turgor * [employer] awake reponding, moving ext * Ext no edema Assessment and Plan - Assessment and Plan (Free Text) Assessment: * UGI bleeding with notice of hematoma on EGD s/p epi inj, gold probe for esophagitis, tightening bumper with maintained BP, hgb. Recommended by GI to restart feeds which will be restarted, will DC protonix drip and transfer patient to the floor.
--- NOTE | 2016-12-05 20:34 | CP.PCM.PN ---
Subjective - Date & Time of Evaluation Date of Evaluation: 12/05/16 Time of Evaluation: 13:20 - Subjective Subjective: clinically same Objective - Vital Signs/Intake and Output Vital Signs (last 24 hours): Temp Pulse Resp BP Pulse Ox 97.7 F 64 10 L 123/64 99 12/05/16 16:00 12/05/16 18:14 12/05/16 18:14 12/05/16 18:14 12/05/16 04:00 Intake and Output: 12/05/16 12/06/16 18:59 06:59 Intake Total 670 Output Total 3000 Balance -2330 - Medications Medications: Current Medications Acetaminophen (Tylenol 650 Mg Supp) 650 mg [place] Q6 PRN PRN Reason: Fever >100.4 F Acetylcysteine (Acetylcysteine 20%) 2 ml INH RBID [facility] Last Admin: 12/05/16 08:00 Dose: 2 ml Albuterol/Ipratropium (Duoneb 3 Mg/0.5 Mg (3 Ml) Ud) 3 ml INH RQID [facility] Last Admin: 12/05/16 11:13 Dose: Not Given Bacitracin (Bacitracin) 0 gm TOP BID [facility] Last Admin: 12/05/16 18:04 Dose: 1 applic Enalapril Maleate (Vasotec) 10 mg PO BID [facility] Last Admin: 12/03/16 17:33 Dose: 10 mg Enoxaparin Sodium (Lovenox) 40 mg SC DAILY [facility] Hydralazine HCl (Apresoline) 25 mg PO TID [facility] Last Admin: 12/03/16 17:33 Dose: 25 mg Hydromorphone HCl (Dilaudid) 0.5 mg IVP Q8H PRN PRN Reason: Pain, Mild (1-3) Lorazepam (Ativan) 1 mg IVP Q8 PRN PRN Reason: Agitation Last Admin: 12/04/16 21:15 Dose: 1 mg Magnesium Hydroxide (Milk Of Magnesia) 30 ml PEG DAILY [facility] Last Admin: 12/05/16 10:41 Dose: 30 ml Pantoprazole Sodium (Protonix Inj) 40 mg IVP Q12H [facility] Last Admin: 12/05/16 10:14 Dose: 40 mg Paroxetine HCl (Paxil) 20 mg PO DAILY PRN PRN Reason: Anxiety Rosuvastatin Calcium (Crestor) 20 mg PEG HS [facility] Last Admin: 12/04/16 21:18 Dose: Not Given - Labs Labs: 12/05/16 07:38 12/05/16 07:38 PT 13.9 SECONDS (9.7-12.2) H 12/04/16 05:39 INR 1.2 12/04/16 05:39 APTT 33 SECONDS (21-34) 12/04/16 05:39 - Constitutional Appears: Well - Head Exam Head Exam: ATRAUMATIC, NORMAL INSPECTION, NORMOCEPHALIC - Eye Exam Eye Exam: EOMI, Normal appearance, PERRL Pupil Exam: NORMAL ACCOMODATION, PERRL - ENT Exam ENT Exam: Mucous Membranes Moist, Normal Exam - Neck Exam Neck Exam: Full ROM, Normal Inspection. absent: Lymphadenopathy - Respiratory Exam Respiratory Exam: Decreased Breath Sounds - Cardiovascular Exam Cardiovascular Exam: REGULAR RHYTHM, +S1, +S2 - GI/Abdominal Exam GI & Abdominal Exam: Soft, Diminished Bowel Sounds - Rectal Exam Rectal Exam: Deferred
[2016-12-06] MEDS: HYDROmorphone 0.5 mg/0.5 ml ISec IVP PRN ×2 (05:11→17:29)
[2016-12-06 06:40] LABS: MEAN CELL VOLUME 90.4 fL (80.0-94.0); MEAN CORPUSCULAR HEMOGLOBIN 31.8 pg (27.0-31.0); MEAN CORPUSCULAR HGB CONC 35.2 g/dL (33.0-37.0); MEAN PLATELET VOLUME 7.9 fL (7.2-11.7); RED CELL DISTRIBUTION WIDTH 16.7 % (11.5-14.5); WHITE BLOOD COUNT 11.9 K/uL (4.8-10.8)
[2016-12-06 06:56] LABS: ALB/GLOB RATIO 0.9 (1.0-2.1); ALKALINE PHOSPHATASE 109 U/L (38-126); ALT/SGPT 26 U/L (21-72); AST/SGOT 13 U/L (17-59); BILIRUBIN,TOTAL 0.5 mg/dL (0.2-1.3); BLOOD UREA NITROGEN 9 mg/dL (9-20); CALCIUM 8.7 mg/dl (8.6-10.4); CARBON DIOXIDE 26 mmol/L (22-30); CHLORIDE 95 mmol/L (98-107); GFR AFRICAN-AMERICAN > 60; GLUCOSE,RANDOM 111 mg/dL (75-110); POTASSIUM 3.2 mmol/L (3.6-5.2); SODIUM 130 mmol/L (132-148); TOTAL PROTEIN 5.4 g/dL (6.3-8.3)
[2016-12-06] MEDS: Albuterol-Ipratrop 3 mg / 0.5 (3 ml) UD INH SCH ×3 (08:00→16:51)
[2016-12-06] MEDS: Acetylcysteine 20% Inhal Soln (4ml) INH SCH (08:00)
[2016-12-06] MEDS ORDERED: Acetaminophen 650mg/20.3ml solution UD PEG PRN (09:35)
[2016-12-06] MEDS ORDERED: Potassium Chloride 20 mEq/15 ml LIQ UD PO ONE (09:45)
[2016-12-06] MEDS: Magnesium Hydroxide Susp 30 ml UD PEG SCH (09:49)
[2016-12-06] MEDS: Bacitracin Ointment 30 GM TUBE TOP SCH ×2 (09:49→17:14)
[2016-12-06 16:24] VITALS: BP 117/60; PULSE 75; RESP 16; TEMP 97.7; O2SAT 98
--- NOTE | 2016-12-06 19:48 | CP.PCM.PN ---
Subjective - Date & Time of Evaluation Date of Evaluation: 12/06/16 Time of Evaluation: 13:20 - Subjective Subjective: clinically same Objective - Vital Signs/Intake and Output Vital Signs (last 24 hours): Temp Pulse Resp BP Pulse Ox 97.7 F 75 16 117/60 98 12/06/16 16:00 12/06/16 16:00 12/06/16 16:00 12/06/16 16:00 12/06/16 16:00 Intake and Output: 12/06/16 12/07/16 18:59 06:59 Intake Total 710 Output Total 400 Balance 310 - Labs Labs: 12/06/16 06:39 12/06/16 06:39 PT 13.9 SECONDS (9.7-12.2) H 12/04/16 05:39 INR 1.2 12/04/16 05:39 APTT 33 SECONDS (21-34) 12/04/16 05:39 - Constitutional Appears: Well - Head Exam Head Exam: ATRAUMATIC, NORMAL INSPECTION, NORMOCEPHALIC - Eye Exam Eye Exam: EOMI, Normal appearance, PERRL Pupil Exam: NORMAL ACCOMODATION, PERRL - ENT Exam ENT Exam: Mucous Membranes Moist, Normal Exam - Neck Exam Neck Exam: Full ROM, Normal Inspection. absent: Lymphadenopathy - Respiratory Exam Respiratory Exam: Decreased Breath Sounds - Cardiovascular Exam Cardiovascular Exam: REGULAR RHYTHM, +S1, +S2 - GI/Abdominal Exam GI & Abdominal Exam: Soft, Diminished Bowel Sounds - Rectal Exam Rectal Exam: Deferred
--- NOTE | 2016-12-07 22:04 | CARD ---
APPROVED REPORT EKG Measurement Heart [id number] <Conclusion> Normal sinus rhythm Moderate voltage criteria for LVH, may be normal variant Borderline ECG
== END 2016-12-06 18:30 | DRG 189 ==
LOC: C.ER 19:28 → C.9E 21:04 → C.3T 22:50 → OBSVTOIN 12-01 12:22 → C.3T 12-01 17:41 → C.9I 12-04 03:45
PROVIDERS: ADMIT Internal Medicine Nephrology; ATTEND Internal Medicine Nephrology
PROC: 0DH68UZ Insertion of Feeding Device into Stomach, Via Natural or Artificial Opening Endoscopic (ICD-10-PCS; principal; 2016-12-03 10:10)
PROC: 30233N1 Transfusion of Nonautologous Red Blood Cells into Peripheral Vein, Percutaneous Approach (ICD-10-PCS; 2016-12-04)
DX: K94.23 Gastrostomy malfunction (principal); I69.351 Hemiplegia and hemiparesis following cerebral infarction affecting right dominant side; I10 Essential (primary) hypertension; D64.9 Anemia, unspecified; I25.10 Atherosclerotic heart disease of native coronary artery without angina pectoris; K21.0 Gastro-esophageal reflux disease with esophagitis; I69.391 Dysphagia following cerebral infarction; R13.10 Dysphagia, unspecified; R47.1 Dysarthria and anarthria; M17.12 Unilateral primary osteoarthritis, left knee; G89.29 Other chronic pain; F10.21 Alcohol dependence, in remission; E78.5 Hyperlipidemia, unspecified; Y83.3 Surgical operation with formation of external stoma as the cause of abnormal reaction of the patient, or of later complication, without mention of misadventure at the time of the procedure; Z87.891 Personal history of nicotine dependence; Z93.1 Gastrostomy status

== ENCOUNTER 2016-12-12 12:21 | Inpatient (IN) | payer OTHER ==
[2016-12-12 12:22] VITALS: BMI 22.3
[2016-12-12] MEDS ORDERED: Sodium Chloride 0.9% 500 ML IV ONE (12:45)
[2016-12-12] MEDS ORDERED: Sodium Chloride 0.9% 1,000 ML ONE (13:13)
--- NOTE | 2016-12-12 13:15 | C.PDOC ---
History Of Present Illness 56 year old male, with a history of hypertension, alcohol abuse, and recent stroke, who was discharged from [facility] on 12/06 to rehab is brought in to the ED for abnormal labs/anemia and black tarry stools. The patient is awake and alert. He complains only of pain to left hip which he states he has had for some time as well as pain to his back where he states that he has a cyst also present for some time. He does not know why he is here. Time Seen by Provider: 12/12/16 12:38 Chief Complaint (Nursing): Abnormal Labs History Per: Patient History/Exam Limitations: no limitations Onset/Duration Of Symptoms: Unknown Reports Recently: Hospitalized Additional History Per: Group Home Past Medical History Reviewed: Historical Data, Nursing Documentation, Vital Signs Vital Signs: Last Vital Signs Temp 97.7 F 12/12/16 12:31 Pulse 71 12/12/16 12:31 Resp 18 12/12/16 12:31 BP 152/70 H 12/12/16 12:31 Pulse Ox 99 12/12/16 13:33 - Medical History PMH: Anemia, Anxiety, Arthritis (L KNEE), Back Problems, HTN, Hyperlipidemia Denies: HIV, Chronic Kidney Disease - [facility] Procedures ALCOHOL DETOXIFICATION (04/18/14) INSERTION OF ENDOTRACHEAL AIRWAY INTO TRACHEA, VIA OPENING (10/19/16) INSERTION OF FEEDING DEVICE INTO STOMACH, ENDO (12/01/16) INSERTION OF FEEDING DEVICE INTO STOMACH, PERC APPROACH (10/19/16) INTRODUCTION OF SERUM/TOX/VACCINE INTO MUSCLE, PERC APPROACH (10/19/16) NONEXCIS DEBRID OF WOUND, INFECT, OR BURN (04/22/14) OTHER SKIN & SUBQ I D (04/27/14) PHYSICAL THERAPY NEC (04/27/14) PSYCHIA INTERV/EVAL NEC (08/24/12) RESPIRATORY VENTILATION, GREATER THAN 96 CONSECUTIVE HOURS (10/19/16) TRANSFUSE NONAUT RED BLOOD CELLS IN PERIPH VEIN, PERC (12/01/16) Family History: States: Unknown Family Hx - Social History Hx Tobacco Use: Yes Hx Alcohol Use: Yes Hx Substance Use: Yes - Immunization History Hx Tetanus Toxoid Vaccination: Yes Hx Influenza Vaccination: Yes Hx Pneumococcal Vaccination: No Review Of Systems Constitutional: Negative for: Fever, Chills Cardiovascular: Negative for: Chest Pain Respiratory: Negative for: Shortness of Breath Gastrointestinal: Positive for: Melena. Negative for: Nausea, Vomiting, Abdominal Pain, Diarrhea, Constipation Musculoskeletal: Positive for: Back Pain, Leg Pain Neurological: Negative for: Headache Physical Exam - Physical Exam Appears: Other (Patient appears cachectic and wasting ) Head: Atraumatic, Normacephalic, Other (sunken orbits, temples wasting) Cardiovascular: Rhythm Regular, No Murmur Respiratory: Normal Breath Sounds Gastrointestinal/Abdominal: Soft, No Tenderness, Other (PEG tube in place) Rectal: Other (Dark tarry stool) Extremity: No Pedal Edema, Other (Legs contracted bilaterally, left greater than right) Neurological/Psych: Oriented x3 ED Course And Treatment - Laboratory Results Result Diagrams: 12/12/16 13:20 12/12/16 13:20 O2 Sat by Pulse Oximetry: 99 Medical Decision Making Medical Decision Making: Spoke with Dr. Guy Beatty who recommends admission and GI consult. Disposition Discussed With : Ana Beatty Doctor Will See Patient In The: Hospital Counseled Patient/Family Regarding: Studies Performed, Diagnosis - Disposition Disposition: HOSPITALIZED Disposition Time: 14:01 Condition: GUARDED Forms: [employer] (Cuban) - Clinical Impression Clinical Impression: GI bleed, Anemia - Scribe Statement The provider has reviewed the documentation as recorded by the Tyson Pro Provider Attestation: All medical record entries made by the Amandeepibe were at my direction and personally dictated by me. I have reviewed the chart and agree that the record accurately reflects my personal performance of the history, physical exam, medical decision making, and the department course for this patient. I have also personally directed, reviewed, and agree with the discharge instructions and disposition. Decision To Admit - Pt Status Changed To: Hospital Disposition Of: Inpatient - Admit Certification Admit to Inpatient:: After my assessment, the patient will require hospitalization for at least two midnights. This is because of the severity of symptoms shown, intensity of services needed, and/or the medical risk in this patient being treated as an outpatient. - InPatient: Physician Admission Certification: I certify that this patient requires 2 or more midnights of care for the following reason:: active GI bleed - . Bed Request Type: Telemetry Patient Diagnosis: GI bleed, Anemia
[2016-12-12 13:33] LABS: BASO # 0.1 K/uL (0.0-0.2); BASO % 0.8 % (0.0-2.0); EOS # 0.1 K/uL (0.0-0.7); EOS % 0.6 % (0.0-4.0); HEMATOCRIT 27.7 % (35.0-51.0); LYMPH # 1.7 K/uL (1.0-4.3); LYMPH % 15.8 % (20.0-40.0); MEAN CELL VOLUME 92.8 fL (80.0-94.0); MEAN CORPUSCULAR HEMOGLOBIN 30.9 pg (27.0-31.0); MEAN CORPUSCULAR HGB CONC 33.4 g/dL (33.0-37.0); MEAN PLATELET VOLUME 7.6 fL (7.2-11.7); MONO # 0.7 K/uL (0.0-0.8); MONO % 6.6 % (0.0-10.0); RED CELL DISTRIBUTION WIDTH 17.4 % (11.5-14.5)
[2016-12-12 13:42] LABS: CHLORIDE 87 mmol/L (98-107); SODIUM 123 mmol/L (132-148)
[2016-12-12 13:43] LABS: POTASSIUM 4.5 mmol/L (3.6-5.2)
[2016-12-12 13:45] LABS: ALB/GLOB RATIO 0.8 (1.0-2.1); ALKALINE PHOSPHATASE 137 U/L (38-126); ALT/SGPT 29 U/L (21-72); AST/SGOT 16 U/L (17-59); BILIRUBIN,TOTAL 0.4 mg/dL (0.2-1.3); BLOOD UREA NITROGEN 9 mg/dL (9-20); CARBON DIOXIDE 30 mmol/L (22-30); GFR AFRICAN-AMERICAN > 60; GLUCOSE,RANDOM 84 mg/dL (75-110); TOTAL PROTEIN 7.3 g/dL (6.3-8.3)
[2016-12-12 13:46] LABS: CALCIUM 8.9 mg/dl (8.6-10.4)
[2016-12-12] MEDS ORDERED: Pantoprazole 80 MG in Sodium Chloride 0.9% 100 ML IV STA ×2 (14:10→14:49)
--- NOTE | 2016-12-12 16:29 | RAD ---
PROCEDURE: CHEST RADIOGRAPH, 1 VIEW Technique: Single view portable semi erect @ 13:05. HISTORY: GI Bleeding COMPARISON: 04/27/2014 FINDINGS: LUNGS: Clear. PLEURA: No pneumothorax or pleural fluid seen. CARDIOVASCULAR: Normal. OSSEOUS STRUCTURES: No significant abnormalities. VISUALIZED UPPER ABDOMEN: Normal. OTHER FINDINGS: None. IMPRESSION: No active disease. No acute/significant interval changes. Concordant results with the preliminary interpretation rendered by the emergency department physician procedure.
[2016-12-12] MEDS: Albuterol-Ipratrop 3 mg / 0.5 (3 ml) UD INH SCH (19:17)
[2016-12-12] MEDS: Acetylcysteine 20% Inhal Soln (4ml) INH SCH (19:17)
[2016-12-13] MEDS ORDERED: Pantoprazole 80 MG in Sodium Chloride 0.9% 100 ML IVP SCH (05:00)
[2016-12-13 07:27] LABS: INR 1.1
[2016-12-13] MEDS: Albuterol-Ipratrop 3 mg / 0.5 (3 ml) UD INH SCH ×3 (07:31→20:16)
[2016-12-13] MEDS: Acetylcysteine 20% Inhal Soln (4ml) INH SCH ×2 (07:31→20:15)
[2016-12-13 07:49] LABS: CHLORIDE 90 mmol/L (98-107); POTASSIUM 4.7 mmol/L (3.6-5.2); SODIUM 127 mmol/L (132-148)
[2016-12-13 07:51] LABS: AST/SGOT 44 U/L (17-59); BILIRUBIN,TOTAL 0.7 mg/dL (0.2-1.3); CARBON DIOXIDE 26 mmol/L (22-30); GFR AFRICAN-AMERICAN > 60
[2016-12-13 07:52] LABS: ALB/GLOB RATIO 0.9 (1.0-2.1); ALKALINE PHOSPHATASE 136 U/L (38-126); ALT/SGPT 25 U/L (21-72); BLOOD UREA NITROGEN 7 mg/dL (9-20); GLUCOSE,RANDOM 86 mg/dL (75-110); TOTAL PROTEIN 7.1 g/dL (6.3-8.3)
[2016-12-13 07:53] LABS: CALCIUM 9.1 mg/dl (8.6-10.4)
--- NOTE | 2016-12-13 09:01 | CP.PCM.CON ---
Addendum entered and electronically signed by Marycruz Pierre DO 12/13/16 12:30 : No signs of GI blood loss. H/H stable. restart Aspirin and Plavix. Restart tube feeds. Original Note: <Marycruz Pierre - Last Filed: 12/13/16 11:17> History of Present Illness - History of Present Illness History of Present Illness: Gastroenterology Fellow/PGY5 Consult Note 56 year old male with history of Hypertension, Alcohol abuse, recent CVA with left hemiparesis complicated by dysarthria/dysphagia s/p PEG tube placement 11/22 with inadvertent patient removal s/p replacement 12/03, and recent post-PEG bleed s/p epinephrine/Gold Probe with successful hemostasis presenting with black stools from nursing facility. Nursing facility contacted stating patient had black stools Tuesday morning and afternoon leading to ER presentation. Nursing staff confirms last dose of Aspirin and Plavix being Tuesday and last does of Lovenox being tuesday. Since inpatient, nursing denies any further episodes of melena or hematochezia. Patient oriented to person, place,and time but is confused to recent return to nursing facility and recurrent GI bleed, as a result, unable to complete a 12-point review of systems. Prior EGDs 11/2016 showed LAGC esophagitis, friable distal esophagus s/p gold probe, and gastritis. No prior colonoscopy. Family- unable to confirm, record review- no history of colon cancer Social- unable to confirm, record review- history of alcohol abuse Surgery- PEG placements Review of Systems - Review of Systems Review of Systems: 12-point review of systems negative except for as above Past Patient History - Past Medical History & Family History Past Medical History?: Yes - Past Social History Smoking Status: Light Smoker < 10 Cigarettes Daily - CARDIAC Hx Hypertension: Yes - PULMONARY Hx Respiratory Disorders: No Hx Tuberculosis: No - HEENT Hx HEENT Problems: No - RENAL Hx Chronic Kidney Disease: No - ENDOCRINE/METABOLIC Hx Endocrine Disorders: No - HEMATOLOGICAL/ONCOLOGICAL Hx Anemia: Yes Hx Human Immunodeficiency Virus (HIV): No - INTEGUMENTARY Hx Dermatological Problems: No - MUSCULOSKELETAL/RHEUMATOLOGICAL Hx Arthritis: Yes (L KNEE) Hx Falls: Yes - GASTROINTESTINAL Hx Gastrointestinal Disorders: Yes Hx Colitis: Yes Hx Gastroesophageal Reflux: Yes HX Swallowing Problems: Yes Other/Comment: peg ulcer - PSYCHIATRIC Hx Anxiety: Yes Hx Substance Use: Yes - SURGICAL HISTORY Hx Surgeries: Yes Other/Comment: hemmroids - ANESTHESIA Hx Anesthesia: Yes Hx Anesthesia Reactions: No Hx Malignant Hyperthermia: No Meds Allergies/Adverse Reactions: Allergies Allergy/AdvReac Type Severity Reaction Status Date / Time No Known Allergies Allergy Verified 12/12/16 12:47 - Medications Medications: Current Medications Acetaminophen (Tylenol 650mg/20.3ml Solution Ud) 650 mg PEG Q4 PRN PRN Reason: Pain, Mild (1-3) Acetylcysteine (Acetylcysteine 20%) 2 ml INH RBID [facility] Last Admin: 12/13/16 07:31 Dose: 2 ml Albuterol/Ipratropium (Duoneb 3 Mg/0.5 Mg (3 Ml) Ud) 3 ml INH RQID [facility] Last Admin: 12/13/16 07:31 Dose: 3 ml Clonidine HCl (Catapres Tts1 0.1 Mg/24 Hr) 1 patch TD QWK [facility] Enalapril Maleate (Vasotec) 10 mg GT BID [facility] Hydralazine HCl (Apresoline) 25 mg PEG TID [facility] Hydromorphone HCl (Dilaudid) 1 mg IVP Q8H PRN PRN Reason: Pain, moderate (4-7) Last Admin: 12/12/16 20:44 Dose: 1 mg Pantoprazole Sodium 80 mg/ (Sodium Chloride) 100 mls @ 10 mls/hr IVP .Q10H [facility]IEL PRN Reason: 8 MG/HR Last Admin: 12/13/16 08:53 Dose: 10 mls/hr Paroxetine HCl (Paxil) 20 mg PO DAILY PRN PRN Reason: Anxiety Pneumococcal Polyvalent Vaccine (Pneumovax 23 Vaccine) 0.5 ml IM .ONCE ONE Stop: 12/13/16 10:01 Rosuvastatin Calcium (Crestor) 20 mg PEG HS [facility] Physical Exam - Constitutional Appears: Non-toxic, No Acute Distress, Confused, Chronically Ill - Head Exam Head Exam: ATRAUMATIC, NORMOCEPHALIC - Eye Exam Eye Exam: EOMI, PERRL Pupil Exam: PERRL. absent: Miosis, Mydriatic - ENT Exam ENT Exam: Mucous Membranes Moist, Normal Oropharynx - Neck Exam Neck exam: Positive for: Normal Inspection - Respiratory Exam Respiratory Exam: Clear to Auscultation Bilateral. absent: Rales, Rhonchi, Wheezes - Cardiovascular Exam Cardiovascular Exam: RRR, +S1, +S2. absent: Rubs - GI/Abdominal Exam GI & Abdominal Exam: Normal Bowel Sounds, Soft. absent: Distended, Firm, Guarding, Organomegaly, Rebound, Rigid, Tenderness Additional comments: PEG site LLQ C/D/I - Rectal Exam Additional comments: dark green with specks of black stool - Extremities Exam Extremities exam: Positive for: normal inspection. Negative for: pedal edema - Neurological Exam Neurological exam: Alert, Oriented x3 Additional comments: confused to general questioning - Psychiatric Exam Psychiatric exam: Normal Affect, Normal Mood - Skin Skin Exam: Dry, Intact, Normal Color, Warm Results - Vital Signs Recent Vital Signs: Last Vital Signs Temp 97.6 F 12/13/16 07:41 Pulse 61 12/13/16 07:41 Resp 20 12/13/16 07:41 BP 118/63 12/13/16 07:41 Pulse Ox 100 12/13/16 07:41 - Labs Result Diagrams: 12/12/16 13:20 12/13/16 07:12 Labs: Laboratory Results - last 24 hr 12/12/16 12/12/16 12/12/16 13:20 13:20 13:20 WBC 11.0 H RBC 2.99 L Hgb 9.2 L Hct 27.7 L MCV 92.8 D MCH 30.9 MCHC 33.4 RDW 17.4 H Plt Count 451 H D MPV 7.6 Neut % (Auto) 76.2 H Lymph % (Auto) 15.8 L [place] % (Auto) 6.6 Eos % (Auto) 0.6 Baso % (Auto) 0.8 Neut # 8.4 H Lymph # 1.7 [place] # 0.7 Eos # 0.1 Baso # 0.1 PT 11.3 INR 1.0 APTT 33 Sodium 123 L Potassium 4.5 Chloride 87 L Carbon Dioxide 30 Anion Gap 11 BUN 9 Creatinine 0.3 L Est GFR ( Amer) > 60 Est GFR (Non-Af Amer) > 60 Random Glucose 84 Calcium 8.9 Total Bilirubin 0.4 AST 16 L D ALT 29 Alkaline Phosphatase 137 H D Total Protein 7.3 Albumin 3.2 L D Globulin 4.1 H Albumin/Globulin Ratio 0.8 L Stool Occult Blood Blood Type Antibody Screen Antibody Identification ALPA, Poly Interpret 12/12/16 12/12/16 12/13/16 13:20 13:23 07:12 WBC RBC Hgb Hct MCV MCH MCHC RDW Plt Count MPV Neut % (Auto) Lymph % (Auto) [place] % (Auto) Eos % (Auto) Baso % (Auto) Neut # Lymph # [place] # Eos # Baso # PT 12.3 H INR 1.1 APTT Sodium Potassium Chloride Carbon Dioxide Anion Gap BUN Creatinine Est GFR ( Amer) Est GFR (Non-Af Amer) Random Glucose Calcium Total Bilirubin AST ALT Alkaline Phosphatase Total Protein Albumin Globulin Albumin/Globulin Ratio Stool Occult Blood Positive H Blood Type B POSITIVE Antibody Screen Positive Antibody Identification Anti K ALPA, Poly Interpret Negative 12/13/16 07:12 WBC RBC Hgb Hct MCV MCH MCHC RDW Plt Count MPV Neut % (Auto) Lymph % (Auto) [place] % (Auto) Eos % (Auto) Baso % (Auto) Neut # Lymph # [place] # Eos # Baso # PT INR APTT Sodium 127 L Potassium 4.7 Chloride 90 L Carbon Dioxide 26 Anion Gap 16 BUN 7 L Creatinine 0.4 L Est GFR ( Amer) > 60 Est GFR (Non-Af Amer) > 60 Random Glucose 86 Calcium 9.1 Total Bilirubin 0.7 AST 44 ALT 25 Alkaline Phosphatase 136 H Total Protein 7.1 Albumin 3.3 L Globulin 3.8 Albumin/Globulin Ratio 0.9 L Stool Occult Blood Blood Type Antibody Screen Antibody Identification ALPA, Poly Interpret Assessment & Plan - Assessment and Plan (Free Text) Assessment: 56 year old male with history of Hypertension, Alcohol abuse, recent CVA with left hemiparesis complicated by dysarthria/dysphagia s/p PEG tube placement 11/22 with inadvertent patient removal s/p replacement 12/03, and recent post-PEG bleed s/p epinephrine/Gold Probe with successful hemostasis presenting with black stools from nursing facility. Nursing facility staff confirms last dose of Aspirin and Plavix being Tuesday and last does of Lovenox being tuesday. Active treatment of anemia with dark stools reported. Prior EGDs 11/2016 showed LAGC esophagitis, friable distal esophagus s/p gold probe, and gastritis. No prior colonoscopy. Plan: >follow up H/H >continue PPI BID >follow up repeat H/H >will hold off on CT A/P angiography as no signs of overt GI blood loss >hemodynamically stable >will contact [facility] to discuss treatment plan in case of indication for repeat endoscopic evaluation based on serial H/H >further recommendations based on clinical results and course <Elana Rose MD - Last Filed: 12/13/16 15:26> Meds - Medications Medications: Current Medications Acetaminophen (Tylenol 650mg/20.3ml Solution Ud) 650 mg PEG Q4 PRN PRN Reason: Pain, Mild (1-3) Acetylcysteine (Acetylcysteine 20%) 2 ml INH RBID [facility] Last Admin: 12/13/16 07:31 Dose: 2 ml Albuterol/Ipratropium (Duoneb 3 Mg/0.5 Mg (3 Ml) Ud) 3 ml INH RQID [facility] Last Admin: 12/13/16 11:13 Dose: 3 ml Clonidine HCl (Catapres Tts1 0.1 Mg/24 Hr) 1 patch TD QWK [facility] Enalapril Maleate (Vasotec) 10 mg GT BID [facility] Last Admin: 12/13/16 10:52 Dose: 10 mg Hydralazine HCl (Apresoline) 25 mg PEG TID [facility] Last Admin: 12/13/16 14:51 Dose: Not Given Hydromorphone HCl (Dilaudid) 1 mg IVP Q8H PRN PRN Reason: Pain, moderate (4-7) Last Admin: 12/13/16 10:54 Dose: 1 mg Piperacillin Sod/Tazobactam Sod (Zosyn 3.375 Gm Iv Premix) 3.375 gm in 50 mls @ 100 mls/hr IVPB Q8 [facility] Pantoprazole Sodium (Protonix Susp) 40 mg PEG 0600,1600 [facility] Paroxetine HCl (Paxil) 20 mg PO DAILY PRN PRN Reason: Anxiety Rosuvastatin Calcium (Crestor) 20 mg PEG HS [facility] Results - Vital Signs Recent Vital Signs: Last Vital Signs Temp 97.6 F 12/13/16 07:41 Pulse 61 12/13/16 07:41 Resp 20 12/13/16 07:41 BP 124/67 12/13/16 10:52 Pulse Ox 100 12/13/16 07:41 - Labs Result Diagrams: 12/13/16 11:11 12/13/16 07:12 Labs: Laboratory Results - last 24 hr 12/12/16 12/13/16 12/13/16 13:20 07:12 07:12 WBC RBC Hgb Hct MCV MCH MCHC RDW Plt Count MPV Neut % (Auto) Lymph % (Auto) [place] % (Auto) Eos % (Auto) Baso % (Auto) Neut # Lymph # [place] # Eos # Baso # PT 12.3 H INR 1.1 Sodium 127 L Potassium 4.7 Chloride 90 L Carbon Dioxide 26 Anion Gap 16 BUN 7 L Creatinine 0.4 L Est GFR ( Amer) > 60 Est GFR (Non-Af Amer) > 60 Random Glucose 86 Calcium 9.1 Total Bilirubin 0.7 AST 44 ALT 25 Alkaline Phosphatase 136 H Total Protein 7.1 Albumin 3.3 L Globulin 3.8 Albumin/Globulin Ratio 0.9 L Blood Type B POSITIVE Antibody Screen Positive Antibody Identification Anti K ALPA, Poly Interpret Negative 12/13/16 11:11 WBC 11.9 H RBC 2.98 L Hgb 9.4 L Hct 27.9 L MCV 93.5 MCH 31.6 H MCHC 33.8 RDW 17.3 H Plt Count 437 H MPV 7.8 Neut % (Auto) 77.1 H Lymph % (Auto) 13.2 L [place] % (Auto) 7.9 Eos % (Auto) 0.9 Baso % (Auto) 0.9 Neut # 9.1 H Lymph # 1.6 [place] # 0.9 H Eos # 0.1 Baso # 0.1 PT INR Sodium Potassium Chloride Carbon Dioxide Anion Gap BUN Creatinine Est GFR ( Amer) Est GFR (Non-Af Amer) Random Glucose Calcium Total Bilirubin AST ALT Alkaline Phosphatase Total Protein Albumin Globulin Albumin/Globulin Ratio Blood Type Antibody Screen Antibody Identification ALPA, Poly Interpret Attending/Attestation - Attestation I have personally seen and examined this patient.: Yes I have fully participated in the care of the patient.: Yes I have reviewed all pertinent clinical information: Yes Notes (Text): 12/13/16 15:23 Patient seen with GI fellow on rounds. This is a 56 year old male with history of Hypertension, Alcohol abuse, recent CVA with left hemiparesis complicated by dysarthria/dysphagia s/p PEG tube placement 11/22/16 with inadvertent patient removal s/p replacement 12/03, and recent post-PEG bleed s/p epinephrine/gold Probe with successful hemostasis presenting with black stools from nursing facility. Last dose of anti platelet tuesday. Prior EGDs 11/2016 showed [place] grade C esophagitis, friable distal esophagus s/p gold probe, and gastritis. No prior colonoscopy. H/Hct stable. Rectal brown stool. No urgent indication for endoscopic evaluation. Can restart PEG feeds. Discontinue PPI gtt and restart PPi bid through PEG. May be discharged back to [place]
[2016-12-13] MEDS ORDERED: Pneumococcal 23-Valent Vaccine IM ONE (10:00)
[2016-12-13 11:24] LABS: BASO # 0.1 K/uL (0.0-0.2); BASO % 0.9 % (0.0-2.0); EOS # 0.1 K/uL (0.0-0.7); EOS % 0.9 % (0.0-4.0); HEMATOCRIT 27.9 % (35.0-51.0); LYMPH # 1.6 K/uL (1.0-4.3); LYMPH % 13.2 % (20.0-40.0); MEAN CELL VOLUME 93.5 fL (80.0-94.0); MEAN CORPUSCULAR HEMOGLOBIN 31.6 pg (27.0-31.0); MEAN CORPUSCULAR HGB CONC 33.8 g/dL (33.0-37.0); MEAN PLATELET VOLUME 7.8 fL (7.2-11.7); MONO # 0.9 K/uL (0.0-0.8); MONO % 7.9 % (0.0-10.0); RED CELL DISTRIBUTION WIDTH 17.3 % (11.5-14.5); WHITE BLOOD COUNT 11.9 K/uL (4.8-10.8)
--- NOTE | 2016-12-13 15:42 | CP.PCM.HP ---
Past Patient History - Past Medical History & Family History Past Medical History?: Yes - Past Social History Smoking Status: Light Smoker < 10 Cigarettes Daily - CARDIAC Hx Hypertension: Yes - PULMONARY Hx Respiratory Disorders: No Hx Tuberculosis: No - HEENT Hx HEENT Problems: No - RENAL Hx Chronic Kidney Disease: No - ENDOCRINE/METABOLIC Hx Endocrine Disorders: No - HEMATOLOGICAL/ONCOLOGICAL Hx Anemia: Yes Hx Human Immunodeficiency Virus (HIV): No - INTEGUMENTARY Hx Dermatological Problems: No - MUSCULOSKELETAL/RHEUMATOLOGICAL Hx Arthritis: Yes (L KNEE) Hx Falls: Yes - GASTROINTESTINAL Hx Gastrointestinal Disorders: Yes Hx Colitis: Yes Hx Gastroesophageal Reflux: Yes HX Swallowing Problems: Yes Other/Comment: peg ulcer - PSYCHIATRIC Hx Anxiety: Yes Hx Substance Use: Yes - SURGICAL HISTORY Hx Surgeries: Yes Other/Comment: hemmroids - ANESTHESIA Hx Anesthesia: Yes Hx Anesthesia Reactions: No Hx Malignant Hyperthermia: No Meds Allergies/Adverse Reactions: Allergies Allergy/AdvReac Type Severity Reaction Status Date / Time No Known Allergies Allergy Verified 12/12/16 12:47 Physical Exam - Constitutional Appears: Well - Head Exam Head Exam: ATRAUMATIC, NORMAL INSPECTION, NORMOCEPHALIC - Eye Exam Eye Exam: EOMI, Normal appearance, PERRL Pupil Exam: NORMAL ACCOMODATION, PERRL - ENT Exam ENT Exam: Mucous Membranes Moist, Normal Exam - Neck Exam Neck exam: Positive for: Normal Inspection - Respiratory Exam Respiratory Exam: Decreased Breath Sounds - Cardiovascular Exam Cardiovascular Exam: REGULAR RHYTHM, +S1, +S2 - GI/Abdominal Exam GI & Abdominal Exam: Diminished Bowel Sounds, Soft - Rectal Exam Rectal Exam: Deferred Results - Vital Signs Recent Vital Signs: Last Vital Signs Temp 97.6 F 12/13/16 07:41 Pulse 61 12/13/16 07:41 Resp 20 12/13/16 07:41 BP 124/67 12/13/16 10:52 Pulse Ox 100 12/13/16 07:41 - Labs Result Diagrams: 12/13/16 11:11 12/13/16 07:12 Labs: Laboratory Results - last 24 hr 12/12/16 12/13/16 12/13/16 13:20 07:12 07:12 WBC RBC Hgb Hct MCV MCH MCHC RDW Plt Count MPV Neut % (Auto) Lymph % (Auto) [place] % (Auto) Eos % (Auto) Baso % (Auto) Neut # Lymph # [place] # Eos # Baso # PT 12.3 H INR 1.1 Sodium 127 L Potassium 4.7 Chloride 90 L Carbon Dioxide 26 Anion Gap 16 BUN 7 L Creatinine 0.4 L Est GFR ( Amer) > 60 Est GFR (Non-Af Amer) > 60 Random Glucose 86 Calcium 9.1 Total Bilirubin 0.7 AST 44 ALT 25 Alkaline Phosphatase 136 H Total Protein 7.1 Albumin 3.3 L Globulin 3.8 Albumin/Globulin Ratio 0.9 L Blood Type B POSITIVE Antibody Screen Positive Antibody Identification Anti K ALPA, Poly Interpret Negative 12/13/16 11:11 WBC 11.9 H RBC 2.98 L Hgb 9.4 L Hct 27.9 L MCV 93.5 MCH 31.6 H MCHC 33.8 RDW 17.3 H Plt Count 437 H MPV 7.8 Neut % (Auto) 77.1 H Lymph % (Auto) 13.[address] [place] % (Auto) 7.9 Eos % (Auto) 0.9 Baso % (Auto) 0.9 Neut # 9.1 H Lymph # 1.6 [place] # 0.9 H Eos # 0.1 Baso # 0.1 PT INR Sodium Potassium Chloride Carbon Dioxide Anion Gap BUN Creatinine Est GFR ( Amer) Est GFR (Non-Af Amer) Random Glucose Calcium Total Bilirubin AST ALT Alkaline Phosphatase Total Protein Albumin Globulin Albumin/Globulin Ratio Blood Type Antibody Screen Antibody Identification ALPA, Poly Interpret
--- NOTE | 2016-12-13 16:17 | CP.PCM.CON ---
Addendum entered and electronically signed by Carmen Mckoy 12/13/16 17:56 : additional plan: -Continue Zosyn -warm compresses TID Original Note: History of Present Illness - History of Present Illness History of Present Illness: General Surgery Consult Note for Dr. Lott Consult for: upper back abscess HPI: 56 year old male with pmhx of [place], CVA (about 1 month), HTN, HLD, anemia, alcohol abuse who was admitted to [facility] on 12/12 for anemia and tarry stools. Patient is a poor historian. Surgery consulted for a purulent abscess on patient's upper back. Patient is unsure of the duration of his abscess. Patient says the abscess causes him a burning pain which he rates a 7/10. Patient states that the pain from the abscess radiates down his spine to his hip. Leaning on it, walking, and moving heavy objects makes his pain worse. Patient states that using an ointment makes the pain better. Patient also admits to generalized weakness, dizziness, dark blood in stool, increased urinary frequency. Patient denies headache, shortness of breath, chest pain, abdominal pain, nausea, vomiting, constipation or diarrhea. PMHx: [place], CVA, HTN, HLD, Anemia, Alcohol Abuse, Anxiety, Arthritis Family History: mother and father: [place], brother: CVA, sister: stomach cancer PSHx: hemorrhoidectomy Allergies: NKDA Social History: Tobacco: 20 year history, half pack/day Alcohol: 8-10 beers/day Drugs: Marijuana, Cocaine use 15-20 years ago Living: patient states he lives with sister, but according to previous admission patient lives in a fpc Review of Systems - Constitutional Constitutional: Increased Appetite, Weight Loss. absent: Chills, Fever, Headache - EENT Eyes: absent: Blurred Vision, Diplopia Nose/Mouth/Throat: absent: Sore Throat - Cardiovascular Cardiovascular: absent: Chest Pain, Dyspnea, Leg Edema, Palpitations - Respiratory Respiratory: Cough. absent: Wheezing Additional comments: chronic dry cough - Gastrointestinal Gastrointestinal: Change in Stool Character. absent: Constipation, Diarrhea, Nausea, Vomiting - Genitourinary Genitourinary: Urinary Frequency. absent: Difficulty Urinating - Musculoskeletal Musculoskeletal: absent: Muscle Weakness - Integumentary Integumentary: absent: Rash - Neurological Neurological: Dizziness. absent: Headaches - Hematologic/Lymphatic Hematologic: Easy Bleeding, Easy Bruising Past Patient History - Past Medical History & Family History Past Medical History?: Yes - Past Social History Smoking Status: Light Smoker < 10 Cigarettes Daily - CARDIAC Hx Hypertension: Yes - PULMONARY Hx Respiratory Disorders: No Hx Tuberculosis: No - HEENT Hx HEENT Problems: No - RENAL Hx Chronic Kidney Disease: No - ENDOCRINE/METABOLIC Hx Endocrine Disorders: No - HEMATOLOGICAL/ONCOLOGICAL Hx Anemia: Yes Hx Human Immunodeficiency Virus (HIV): No - INTEGUMENTARY Hx Dermatological Problems: No - MUSCULOSKELETAL/RHEUMATOLOGICAL Hx Arthritis: Yes (L KNEE) Hx Falls: Yes - GASTROINTESTINAL Hx Gastrointestinal Disorders: Yes Hx Colitis: Yes Hx Gastroesophageal Reflux: Yes HX Swallowing Problems: Yes Other/Comment: peg ulcer - PSYCHIATRIC Hx Anxiety: Yes Hx Substance Use: Yes - SURGICAL HISTORY Hx Surgeries: Yes Other/Comment: hemmroids - ANESTHESIA Hx Anesthesia: Yes Hx Anesthesia Reactions: No Hx Malignant Hyperthermia: No Meds Allergies/Adverse Reactions: Allergies Allergy/AdvReac Type Severity Reaction Status Date / Time No Known Allergies Allergy Verified 12/12/16 12:47 - Medications Medications: Current Medications Acetaminophen (Tylenol 650mg/20.3ml Solution Ud) 650 mg PEG Q4 PRN PRN Reason: Pain, Mild (1-3) Acetylcysteine (Acetylcysteine 20%) 2 ml INH RBID [facility] Last Admin: 12/13/16 07:31 Dose: 2 ml Albuterol/Ipratropium (Duoneb 3 Mg/0.5 Mg (3 Ml) Ud) 3 ml INH RQID [facility] Last Admin: 12/13/16 11:13 Dose: 3 ml Clonidine HCl (Catapres Tts1 0.1 Mg/24 Hr) 1 patch TD QWK [facility] Enalapril Maleate (Vasotec) 10 mg GT BID [facility] Last Admin: 12/13/16 10:52 Dose: 10 mg Hydralazine HCl (Apresoline) 25 mg PEG TID [facility] Last Admin: 12/13/16 14:51 Dose: Not Given Hydromorphone HCl (Dilaudid) 1 mg IVP Q8H PRN PRN Reason: Pain, moderate (4-7) Last Admin: 12/13/16 10:54 Dose: 1 mg Piperacillin Sod/Tazobactam Sod (Zosyn 3.375 Gm Iv Premix) 3.375 gm in 50 mls @ 100 mls/hr IVPB Q8 [facility] Pantoprazole Sodium (Protonix Susp) 40 mg PEG 0600,1600 [facility] Paroxetine HCl (Paxil) 20 mg PO DAILY PRN PRN Reason: Anxiety Rosuvastatin Calcium (Crestor) 20 mg PEG HS [facility] Physical Exam - Constitutional Appears: Non-toxic, No Acute Distress, Cachectic, Chronically Ill - Head Exam Head Exam: ATRAUMATIC, NORMAL INSPECTION, NORMOCEPHALIC - Eye Exam Eye Exam: EOMI, Normal appearance - ENT Exam ENT Exam: Mucous Membranes Moist - Respiratory Exam Respiratory Exam: NORMAL BREATHING PATTERN. absent: Accessory Muscle Use, Respiratory Distress - Cardiovascular Exam Cardiovascular Exam: +S1, +S2 - GI/Abdominal Exam GI & Abdominal Exam: absent: Distended, Firm Additional comments: peg tube in place - Extremities Exam Extremities exam: Positive for: normal inspection. Negative for: pedal edema - Back Exam Additional comments: upper middle back abscess with purulent drainage - Neurological Exam Neurological exam: Alert - Psychiatric Exam Psychiatric exam: Normal Affect, Normal Mood - Skin Skin Exam: Intact, Normal Color, Warm Additional comments: back abscess erythematous with purulent drainage Results - Vital Signs Recent Vital Signs: Last Vital Signs Temp 98.4 F 12/13/16 15:10 Pulse 64 12/13/16 15:10 Resp 20 12/13/16 15:10 BP 103/54 L 12/13/16 15:10 Pulse Ox 98 12/13/16 15:10 - Labs Result Diagrams: 12/13/16 11:11 12/13/16 07:12 Labs: Laboratory Results - last 24 hr 12/13/16 12/13/16 12/13/16 07:12 07:12 11:11 WBC 11.9 H RBC 2.98 L Hgb 9.4 L Hct 27.9 L MCV 93.5 MCH 31.6 H MCHC 33.8 RDW 17.3 H Plt Count 437 H MPV 7.8 Neut % (Auto) 77.1 H Lymph % (Auto) 13.2 L [place] % (Auto) 7.9 Eos % (Auto) 0.9 Baso % (Auto) 0.9 Neut # 9.1 H Lymph # 1.6 [place] # 0.9 H Eos # 0.1 Baso # 0.1 PT 12.3 H INR 1.1 Sodium 127 L Potassium 4.7 Chloride 90 L Carbon Dioxide 26 Anion Gap 16 BUN 7 L Creatinine 0.4 L Est GFR ( Amer) > 60 Est GFR (Non-Af Amer) > 60 Random Glucose 86 Calcium 9.1 Total Bilirubin 0.7 AST 44 ALT 25 Alkaline Phosphatase 136 H Total Protein 7.1 Albumin 3.3 L Globulin 3.8 Albumin/Globulin Ratio 0.9 L Assessment & Plan - Assessment and Plan (Free Text) Assessment: 56 year old M with extensive pmhx and upper back abscess Plan: -continue medical management as per primary -monitor abscess and drainage -possible I&D further recommendations as per Dr. Lott
[2016-12-13] MEDS: Pantoprazole 40 mg Susp UD PEG SCH (16:19)
[2016-12-13] MEDS: Piperacill/Tazo 3.375gm in Dex 3.375 GM/50 ML BAG IVPB SCH ×2 (16:52→21:12)
--- NOTE | 2016-12-13 21:36 | CARD ---
APPROVED REPORT EKG Measurement Heart [id number] <Conclusion> Normal sinus rhythm Minimal voltage criteria for LVH, may be normal variant Borderline ECG
--- NOTE | 2016-12-14 06:02 | CP.PCM.PN ---
<Marycruz Pierre - Last Filed: 12/14/16 09:00> Subjective - Date & Time of Evaluation Date of Evaluation: 12/14/16 Time of Evaluation: 06:00 - Subjective Subjective: Gastroenterology Fellow/PGY5 Progress Note Patient states he feels well. No bowel movement yesterday. Tolerating tube feeds. A 12-point review of systems negative except for as above. Objective - Vital Signs/Intake and Output Vital Signs (last 24 hours): Temp Pulse Resp BP Pulse Ox 97.8 F 64 20 96/60 L 98 12/13/16 23:20 12/13/16 23:20 12/13/16 23:20 12/13/16 23:20 12/13/16 23:20 Intake and Output: 12/13/16 12/14/16 18:59 06:59 Intake Total 290 500 Balance 290 500 - Medications Medications: Current Medications Acetaminophen (Tylenol 650mg/20.3ml Solution Ud) 650 mg PEG Q4 PRN PRN Reason: Pain, Mild (1-3) Acetylcysteine (Acetylcysteine 20%) 2 ml INH RBID [facility] Last Admin: 12/13/16 20:15 Dose: Not Given Albuterol/Ipratropium (Duoneb 3 Mg/0.5 Mg (3 Ml) Ud) 3 ml INH RQID [facility] Last Admin: 12/13/16 20:16 Dose: Not Given Clonidine HCl (Catapres Tts1 0.1 Mg/24 Hr) 1 patch TD QWK [facility] Enalapril Maleate (Vasotec) 10 mg GT BID [facility] Last Admin: 12/13/16 17:38 Dose: Not Given Hydralazine HCl (Apresoline) 25 mg PEG TID [facility] Last Admin: 12/13/16 17:38 Dose: Not Given Hydromorphone HCl (Dilaudid) 1 mg IVP Q8H PRN PRN Reason: Pain, moderate (4-7) Last Admin: 12/13/16 21:18 Dose: 1 mg Piperacillin Sod/Tazobactam Sod (Zosyn 3.375 Gm Iv Premix) 3.375 gm in 50 mls @ 100 mls/hr IVPB Q8 [facility] Last Admin: 12/13/16 21:12 Dose: 100 mls/hr Pantoprazole Sodium (Protonix Susp) 40 mg PEG 0600,1600 [facility] Last Admin: 12/13/16 16:19 Dose: 40 mg Paroxetine HCl (Paxil) 20 mg PO DAILY PRN PRN Reason: Anxiety Rosuvastatin Calcium (Crestor) 20 mg PEG HS [facility] Last Admin: 12/13/16 21:12 Dose: 20 mg - Labs Labs: 12/13/16 11:11 12/13/16 07:12 PT 12.3 SECONDS (9.7-12.2) H 12/13/16 07:12 INR 1.1 12/13/16 07:12 APTT 33 SECONDS (21-34) 12/12/16 13:20 - Constitutional Appears: Non-toxic, No Acute Distress - Head Exam Head Exam: ATRAUMATIC, NORMOCEPHALIC - Eye Exam Eye Exam: EOMI, PERRL Pupil Exam: PERRL. absent: Miosis, Mydriatic - ENT Exam ENT Exam: Mucous Membranes Moist - Neck Exam Neck Exam: Full ROM, Normal Inspection - Cardiovascular Exam Cardiovascular Exam: RRR, +S1, +S2. absent: Gallop, Rubs - GI/Abdominal Exam GI & Abdominal Exam: Soft, Normal Bowel Sounds. absent: Distended, Firm, Guarding, Tenderness, Organomegaly, Rebound Additional comments: PEG site C/D/I - Extremities Exam Extremities Exam: Normal Inspection. 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 Active treatment of stable anemia in setting of recent post-PEG bleed. 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 No prior colonoscopy. Plan: >H/H stable >continue PPI BID >no overt GI blood loss >hemodynamically stable >continue tube feeds >ordered Bacitracin for gastric tube site >primary team ordered heart healthy diet >barium swallow 11/12- silent aspiration >if able to tolerate oral intake without aspiration- may benefit from outpatient follow up for reversal of PEG tube >continue Aspirin/Plavix >okay to discharge from GI standpoint <Jeison Bennett - Last Filed: 12/14/16 15:02> Objective - Vital Signs/Intake and Output Vital Signs (last 24 hours): Temp Pulse Resp BP Pulse Ox 98.1 F 63 20 115/69 97 12/14/16 08:00 12/14/16 08:00 12/14/16 08:00 12/14/16 12:04 12/14/16 08:00 Intake and Output: 12/14/16 12/14/16 06:59 18:59 Intake Total 500 Output Total 250 Balance 250 - Medications Medications: Current Medications Acetaminophen (Tylenol 650mg/20.3ml Solution Ud) 650 mg PEG Q4 PRN PRN Reason: Pain, Mild (1-3) Acetylcysteine (Acetylcysteine 20%) 2 ml INH RBID [facility] Last Admin: 12/14/16 07:35 Dose: 2 ml Albuterol/Ipratropium (Duoneb 3 Mg/0.5 Mg (3 Ml) Ud) 3 ml INH RQID [facility] Last Admin: 12/14/16 11:26 Dose: 3 ml Bacitracin (Bacitracin) 1 gm TOP TID [facility] Last Admin: 12/14/16 13:15 Dose: 1 applic Clonidine HCl (Catapres Tts1 0.1 Mg/24 Hr) 1 patch TD QWK [facility] Enalapril Maleate (Vasotec) 10 mg GT BID [facility] Last Admin: 12/14/16 12:04 Dose: Not Given Hydralazine HCl (Apresoline) 25 mg PEG TID [facility] Last Admin: 12/14/16 13:22 Dose: Not Given Hydromorphone HCl (Dilaudid) 1 mg IVP Q8H PRN PRN Reason: Pain, moderate (4-7) Last Admin: 12/14/16 12:04 Dose: 1 mg Piperacillin Sod/Tazobactam Sod (Zosyn 3.375 Gm Iv Premix) 3.375 gm in 50 mls @ 100 mls/hr IVPB Q8 [facility] Last Admin: 12/14/16 13:14 Dose: 100 mls/hr Pantoprazole Sodium (Protonix Susp) 40 mg PEG 0600,1600 [facility] Last Admin: 12/14/16 06:16 Dose: 40 mg Paroxetine HCl (Paxil) 20 mg PO DAILY PRN PRN Reason: Anxiety Rosuvastatin Calcium (Crestor) 20 mg PEG HS [facility] Last Admin: 12/13/16 21:12 Dose: 20 mg - Labs Labs: 12/14/16 11:40 12/14/16 11:40 PT 12.3 SECONDS (9.7-12.2) H 12/13/16 07:12 INR 1.1 12/13/16 07:12 APTT 33 SECONDS (21-34) 12/12/16 13:20 Attending/Attestation - Attestation I have personally seen and examined this patient.: Yes I have fully participated in the care of the patient.: Yes I have reviewed all pertinent clinical information, including history, physical exam and plan: Yes Notes (Text): 12/14/16 14:58 I have seen and examined patient with GI fellow. No acute events overnight, he is seen sitting in bed appears quite comfortable. He denies abdominal pain, nausea, vomiting, fever/chills. Tolerating PO and tube feeding without difficulty. HTN CVA with residual hemiparesis s/p PEG placement, dislodgement, replacement and complicated by GI bleeding at site s/p endoscopic therapy Anemia - Diet as tolerated - H/H stable, continue to monitor - Rectal exam performed today shows soft green stool in rectal vault without palpable lesions, no evidence of bleeding - If patient is able to tolerate PO diet without signs of aspiration and maintain adequate caloric intake, he may be able to have gastrostomy tube removed in future, would continue to monitor clinical status - Suggest use of topical bacitracin ointment at gastrostomy site for 3 days duration - No further planned GI intervention, will sign off case. Please reconsult as necessary, thank you.
[2016-12-14] MEDS: Pantoprazole 40 mg Susp UD PEG SCH ×2 (06:16→15:54)
[2016-12-14] MEDS: Piperacill/Tazo 3.375gm in Dex 3.375 GM/50 ML BAG IVPB SCH ×3 (06:16→21:52)
[2016-12-14] MEDS: Acetylcysteine 20% Inhal Soln (4ml) INH SCH ×2 (07:35→19:43)
[2016-12-14] MEDS: Albuterol-Ipratrop 3 mg / 0.5 (3 ml) UD INH SCH ×4 (07:35→19:43)
--- NOTE | 2016-12-14 09:18 | CP.PCM.PN ---
Subjective - Date & Time of Evaluation Date of Evaluation: 12/14/16 Time of Evaluation: 07:00 - Subjective Subjective: Surgery Note for Dr. Lott Patient seen and examined at bedside and in no acute distress. Patient still having pain from abscess on back. Patient denies fever, chills, n/v, c/d. Objective - Vital Signs/Intake and Output Vital Signs (last 24 hours): Temp Pulse Resp BP Pulse Ox 98.1 F 63 20 96/61 L 97 12/14/16 08:00 12/14/16 08:00 12/14/16 08:00 12/14/16 08:00 12/14/16 08:00 Intake and Output: 12/14/16 12/14/16 06:59 18:59 Intake Total 500 Output Total 250 Balance 250 - Medications Medications: Current Medications Acetaminophen (Tylenol 650mg/20.3ml Solution Ud) 650 mg PEG Q4 PRN PRN Reason: Pain, Mild (1-3) Acetylcysteine (Acetylcysteine 20%) 2 ml INH RBID [facility] Last Admin: 12/14/16 07:35 Dose: 2 ml Albuterol/Ipratropium (Duoneb 3 Mg/0.5 Mg (3 Ml) Ud) 3 ml INH RQID [facility] Last Admin: 12/14/16 07:35 Dose: 3 ml Bacitracin (Bacitracin) 1 gm TOP TID [facility] Clonidine HCl (Catapres Tts1 0.1 Mg/24 Hr) 1 patch TD QWK [facility] Enalapril Maleate (Vasotec) 10 mg GT BID [facility] Last Admin: 12/13/16 17:38 Dose: Not Given Hydralazine HCl (Apresoline) 25 mg PEG TID [facility] Last Admin: 12/13/16 17:38 Dose: Not Given Hydromorphone HCl (Dilaudid) 1 mg IVP Q8H PRN PRN Reason: Pain, moderate (4-7) Last Admin: 12/13/16 21:18 Dose: 1 mg Piperacillin Sod/Tazobactam Sod (Zosyn 3.375 Gm Iv Premix) 3.375 gm in 50 mls @ 100 mls/hr IVPB Q8 [facility] Last Admin: 12/14/16 06:16 Dose: 100 mls/hr Pantoprazole Sodium (Protonix Susp) 40 mg PEG 0600,1600 [facility] Last Admin: 12/14/16 06:16 Dose: 40 mg Paroxetine HCl (Paxil) 20 mg PO DAILY PRN PRN Reason: Anxiety Rosuvastatin Calcium (Crestor) 20 mg PEG HS [facility] Last Admin: 12/13/16 21:12 Dose: 20 mg - Labs Labs: 12/13/16 11:11 12/13/16 07:12 PT 12.3 SECONDS (9.7-12.2) H 12/13/16 07:12 INR 1.1 12/13/16 07:12 APTT 33 SECONDS (21-34) 12/12/16 13:20 - Constitutional Appears: Non-toxic, No Acute Distress, Older Than Stated Age, Chronically Ill - Head Exam Head Exam: ATRAUMATIC, NORMAL INSPECTION, NORMOCEPHALIC - Eye Exam Eye Exam: EOMI, Normal appearance - ENT Exam ENT Exam: Mucous Membranes Moist - Respiratory Exam Respiratory Exam: Clear to Ausculation Bilateral. absent: Accessory Muscle Use , Respiratory Distress - Cardiovascular Exam Cardiovascular Exam: REGULAR RHYTHM, +S1, +S2 - GI/Abdominal Exam GI & Abdominal Exam: Soft. absent: Tenderness Additional comments: peg tube in place - Extremities Exam Extremities Exam: absent: Pedal Edema - Back Exam Additional comments: abscess with purulent drainage in middle of upper back - Neurological Exam Neurological Exam: Alert, Awake, Oriented x3 - Psychiatric Exam Psychiatric exam: Normal Affect, Normal Mood - Skin Additional comments: erythematous abscess on upper middle back Assessment and Plan - Assessment and Plan (Free Text) Assessment: 56 year old M with extensive pmhx and upper back abscess Plan: -continue medical management as per primary -abscess draining purulent discharge -f/u culture of discharge -continue Zosyn -continue warm compresses TID further recommendations as per Dr. Lott
[2016-12-14 11:47] LABS: BASO # 0.1 K/uL (0.0-0.2); EOS # 0.1 K/uL (0.0-0.7); EOS % 0.8 % (0.0-4.0); HEMATOCRIT 25.8 % (35.0-51.0); LYMPH # 1.2 K/uL (1.0-4.3); MEAN CELL VOLUME 92.8 fL (80.0-94.0); MEAN CORPUSCULAR HEMOGLOBIN 31.8 pg (27.0-31.0); MEAN CORPUSCULAR HGB CONC 34.2 g/dL (33.0-37.0); MEAN PLATELET VOLUME 7.6 fL (7.2-11.7); MONO # 0.7 K/uL (0.0-0.8); MONO % 8.4 % (0.0-10.0); RED CELL DISTRIBUTION WIDTH 17.3 % (11.5-14.5); WHITE BLOOD COUNT 8.6 K/uL (4.8-10.8)
[2016-12-14] MEDS: Bacitracin Ointment 30 GM TUBE TOP SCH ×3 (12:02→18:25)
[2016-12-14 12:18] LABS: CHLORIDE 90 mmol/L (98-107); POTASSIUM 4.1 mmol/L (3.6-5.2); SODIUM 126 mmol/L (132-148)
[2016-12-14 12:20] LABS: ALB/GLOB RATIO 0.9 (1.0-2.1); ALKALINE PHOSPHATASE 126 U/L (38-126); AST/SGOT 23 U/L (17-59); BILIRUBIN,TOTAL 0.4 mg/dL (0.2-1.3); CARBON DIOXIDE 25 mmol/L (22-30); GFR AFRICAN-AMERICAN > 60; TOTAL PROTEIN 6.7 g/dL (6.3-8.3)
[2016-12-14 12:21] LABS: ALT/SGPT 22 U/L (21-72); BLOOD UREA NITROGEN 11 mg/dL (9-20); CALCIUM 8.7 mg/dl (8.6-10.4); GLUCOSE,RANDOM 114 mg/dL (75-110)
--- NOTE | 2016-12-14 20:07 | CP.PCM.PN ---
Subjective - Date & Time of Evaluation Date of Evaluation: 12/14/16 Time of Evaluation: 08:40 - Subjective Subjective: clinically same Objective - Vital Signs/Intake and Output Vital Signs (last 24 hours): Temp Pulse Resp BP Pulse Ox 98.1 F 71 20 121/70 97 12/14/16 15:55 12/14/16 15:55 12/14/16 15:55 12/14/16 18:24 12/14/16 15:55 Intake and Output: 12/14/16 12/15/16 18:59 06:59 Intake Total 720 Output Total 600 Balance 120 - Medications Medications: Current Medications Acetaminophen (Tylenol 650mg/20.3ml Solution Ud) 650 mg PEG Q4 PRN PRN Reason: Pain, Mild (1-3) Acetylcysteine (Acetylcysteine 20%) 2 ml INH RBID [facility] Last Admin: 12/14/16 19:43 Dose: Not Given Albuterol/Ipratropium (Duoneb 3 Mg/0.5 Mg (3 Ml) Ud) 3 ml INH RQID [facility] Last Admin: 12/14/16 19:43 Dose: Not Given Bacitracin (Bacitracin) 1 gm TOP TID [facility] Last Admin: 12/14/16 18:25 Dose: 1 applic Clonidine HCl (Catapres Tts1 0.1 Mg/24 Hr) 1 patch TD QWK [facility] Enalapril Maleate (Vasotec) 10 mg GT BID [facility] Last Admin: 12/14/16 18:24 Dose: 10 mg Hydralazine HCl (Apresoline) 25 mg PEG TID [facility] Last Admin: 12/14/16 18:24 Dose: 25 mg Hydromorphone HCl (Dilaudid) 1 mg IVP Q8H PRN PRN Reason: Pain, moderate (4-7) Last Admin: 12/14/16 12:04 Dose: 1 mg Piperacillin Sod/Tazobactam Sod (Zosyn 3.375 Gm Iv Premix) 3.375 gm in 50 mls @ 100 mls/hr IVPB Q8 [facility] Last Admin: 12/14/16 13:14 Dose: 100 mls/hr Pantoprazole Sodium (Protonix Susp) 40 mg PEG 0600,1600 [facility] Last Admin: 12/14/16 15:54 Dose: 40 mg Paroxetine HCl (Paxil) 20 mg PO DAILY PRN PRN Reason: Anxiety Rosuvastatin Calcium (Crestor) 20 mg PEG HS [facility] Last Admin: 12/13/16 21:12 Dose: 20 mg - Labs Labs: 12/14/16 11:40 12/14/16 11:40 PT 12.3 SECONDS (9.7-12.2) H 12/13/16 07:12 INR 1.1 12/13/16 07:12 APTT 33 SECONDS (21-34) 12/12/16 13:20
[2016-12-15] MEDS: Piperacill/Tazo 3.375gm in Dex 3.375 GM/50 ML BAG IVPB SCH ×3 (06:07→21:32)
[2016-12-15] MEDS: Pantoprazole 40 mg Susp UD PEG SCH ×2 (06:07→16:35)
[2016-12-15] MEDS: Albuterol-Ipratrop 3 mg / 0.5 (3 ml) UD INH SCH ×4 (07:58→20:41)
[2016-12-15] MEDS: Acetylcysteine 20% Inhal Soln (4ml) INH SCH ×2 (07:58→20:41)
--- NOTE | 2016-12-15 08:05 | CP.PCM.PN ---
Subjective - Date & Time of Evaluation Date of Evaluation: 12/15/16 Time of Evaluation: 07:00 - Subjective Subjective: Surgery Note for Dr. Lott Patient seen and examined at bedside and in no acute distress. Patient having minimal pain from abscess on back. Patient denies fever, chills, n/v, c/d. Objective - Vital Signs/Intake and Output Vital Signs (last 24 hours): Temp Pulse Resp BP Pulse Ox 97.8 F 71 20 93/60 L 95 12/14/16 23:43 12/14/16 23:43 12/14/16 23:43 12/14/16 23:43 12/14/16 23:43 Intake and Output: 12/15/16 12/15/16 06:59 18:59 Intake Total 640 Balance 640 - Medications Medications: Current Medications Acetaminophen (Tylenol 650mg/20.3ml Solution Ud) 650 mg PEG Q4 PRN PRN Reason: Pain, Mild (1-3) Acetylcysteine (Acetylcysteine 20%) 2 ml INH RBID [facility] Last Admin: 12/15/16 07:58 Dose: 2 ml Albuterol/Ipratropium (Duoneb 3 Mg/0.5 Mg (3 Ml) Ud) 3 ml INH RQID [facility] Last Admin: 12/15/16 07:58 Dose: 3 ml Bacitracin (Bacitracin) 1 gm TOP TID [facility] Last Admin: 12/14/16 18:25 Dose: 1 applic Clonidine HCl (Catapres Tts1 0.1 Mg/24 Hr) 1 patch TD QWK [facility] Enalapril Maleate (Vasotec) 10 mg GT BID [facility] Last Admin: 12/14/16 18:24 Dose: 10 mg Hydralazine HCl (Apresoline) 25 mg PEG TID [facility] Last Admin: 12/14/16 18:24 Dose: 25 mg Hydromorphone HCl (Dilaudid) 1 mg IVP Q8H PRN PRN Reason: Pain, moderate (4-7) Last Admin: 12/14/16 20:13 Dose: 1 mg Piperacillin Sod/Tazobactam Sod (Zosyn 3.375 Gm Iv Premix) 3.375 gm in 50 mls @ 100 mls/hr IVPB Q8 [facility] Last Admin: 12/15/16 06:07 Dose: 100 mls/hr Pantoprazole Sodium (Protonix Susp) 40 mg PEG 0600,1600 [facility] Last Admin: 12/15/16 06:07 Dose: 40 mg Paroxetine HCl (Paxil) 20 mg PO DAILY PRN PRN Reason: Anxiety Rosuvastatin Calcium (Crestor) 20 mg PEG HS [facility] Last Admin: 12/14/16 21:54 Dose: 20 mg - Labs Labs: 12/14/16 11:40 12/14/16 11:40 PT 12.3 SECONDS (9.7-12.2) H 12/13/16 07:12 INR 1.1 12/13/16 07:12 APTT 33 SECONDS (21-34) 12/12/16 13:20 - Constitutional Appears: Non-toxic, No Acute Distress, Older Than Stated Age, Chronically Ill - Head Exam Head Exam: ATRAUMATIC, NORMAL INSPECTION, NORMOCEPHALIC - Eye Exam Eye Exam: EOMI, Normal appearance - ENT Exam ENT Exam: Mucous Membranes Moist - Respiratory Exam Respiratory Exam: absent: Accessory Muscle Use, Respiratory Distress - Cardiovascular Exam Cardiovascular Exam: REGULAR RHYTHM, +S1, +S2 - GI/Abdominal Exam GI & Abdominal Exam: Soft. absent: Tenderness Additional comments: peg tube in place - Extremities Exam Extremities Exam: Normal Inspection. absent: Pedal Edema - Back Exam Additional comments: erythematous abscess on upper middle back draining purulent drainage - Neurological Exam Neurological Exam: Alert, Awake, Oriented x3 - Psychiatric Exam Psychiatric exam: Normal Affect, Normal Mood - Skin Skin Exam: Normal Color, Warm Additional comments: erythematous abscess on upper middle back draining purulent drainage Assessment and Plan - Assessment and Plan (Free Text) Assessment: 56 year old M with extensive pmhx and upper back abscess Plan: -continue medical management as per primary -abscess draining purulent discharge -f/u culture of discharge -continue Zosyn -continue warm compresses TID -I&D done at bedside on today further recommendations as per Dr. Lott
[2016-12-15] MEDS: Bacitracin Ointment 30 GM TUBE TOP SCH ×4 (10:20→18:00)
[2016-12-15] MEDS ORDERED: Lidocaine 1% Inj (20ml) INFIL ONE ×2 (16:39→17:00)
--- NOTE | 2016-12-15 17:26 | PCM.SURG1 ---
Surgeon's Initial Post Op Note - Surgeon's Notes Surgeon: [employer] Technician: Kelley PGY3, Victoriano PGY3 Type of Anesthesia: Local Pre-Operative Diagnosis: back abscess Operative Findings: pus Post-Operative Diagnosis: same Operation Performed: I&D Specimen/Specimens Removed: none Estimated Blood Loss: EBL {In ML}: 10 Blood Products Given: N/A Drains Used: No Drains Post-Op Condition: Good Date of Surgery/Procedure: 12/15/16 Time of Surgery/Procedure: 17:25
--- NOTE | 2016-12-15 19:13 | CP.PCM.PN ---
Subjective - Date & Time of Evaluation Date of Evaluation: 12/15/16 Time of Evaluation: 08:20 - Subjective Subjective: clinically same Objective - Vital Signs/Intake and Output Vital Signs (last 24 hours): Temp Pulse Resp BP Pulse Ox 97.9 F 79 18 107/64 96 12/15/16 16:00 12/15/16 16:00 12/15/16 16:00 12/15/16 17:48 12/15/16 16:00 Intake and Output: 12/15/16 12/16/16 18:59 06:59 Intake Total 610 Balance 610 - Medications Medications: Current Medications Acetaminophen (Tylenol 650mg/20.3ml Solution Ud) 650 mg PEG Q4 PRN PRN Reason: Pain, Mild (1-3) Acetylcysteine (Acetylcysteine 20%) 2 ml INH RBID [facility] Last Admin: 12/15/16 07:58 Dose: 2 ml Albuterol/Ipratropium (Duoneb 3 Mg/0.5 Mg (3 Ml) Ud) 3 ml INH RQID [facility] Last Admin: 12/15/16 16:36 Dose: 3 ml Bacitracin (Bacitracin) 1 gm TOP TID [facility] Last Admin: 12/15/16 17:49 Dose: Not Given Clonidine HCl (Catapres Tts1 0.1 Mg/24 Hr) 1 patch TD QWK [facility] Enalapril Maleate (Vasotec) 10 mg GT BID [facility] Last Admin: 12/15/16 17:48 Dose: Not Given Hydralazine HCl (Apresoline) 25 mg PEG TID [facility] Last Admin: 12/15/16 17:47 Dose: Not Given Hydromorphone HCl (Dilaudid) 1 mg IVP Q8H PRN PRN Reason: Pain, moderate (4-7) Last Admin: 12/15/16 10:49 Dose: 1 mg Piperacillin Sod/Tazobactam Sod (Zosyn 3.375 Gm Iv Premix) 3.375 gm in 50 mls @ 100 mls/hr IVPB Q8 [facility] Last Admin: 12/15/16 13:52 Dose: 100 mls/hr Pantoprazole Sodium (Protonix Susp) 40 mg PEG 0600,1600 [facility] Last Admin: 12/15/16 16:35 Dose: 40 mg Paroxetine HCl (Paxil) 20 mg PO DAILY PRN PRN Reason: Anxiety Rosuvastatin Calcium (Crestor) 20 mg PEG HS [facility] Last Admin: 12/14/16 21:54 Dose: 20 mg - Labs Labs: 12/14/16 11:40 12/14/16 11:40 PT 12.3 SECONDS (9.7-12.2) H 12/13/16 07:12 INR 1.1 12/13/16 07:12 APTT 33 SECONDS (21-34) 12/12/16 13:20 - Constitutional Appears: Well - Head Exam Head Exam: ATRAUMATIC, NORMAL INSPECTION, NORMOCEPHALIC - Eye Exam Eye Exam: EOMI, Normal appearance, PERRL Pupil Exam: NORMAL ACCOMODATION, PERRL - ENT Exam ENT Exam: Mucous Membranes Moist, Normal Exam - Neck Exam Neck Exam: Full ROM, Normal Inspection. absent: Lymphadenopathy - Respiratory Exam Respiratory Exam: Decreased Breath Sounds - Cardiovascular Exam Cardiovascular Exam: +S1, +S2 - Rectal Exam Rectal Exam: Deferred
[2016-12-16] MEDS: Pantoprazole 40 mg Susp UD PEG SCH ×2 (05:49→16:50)
[2016-12-16] MEDS: Piperacill/Tazo 3.375gm in Dex 3.375 GM/50 ML BAG IVPB SCH ×3 (05:49→21:24)
[2016-12-16] MEDS: Acetylcysteine 20% Inhal Soln (4ml) INH SCH ×2 (08:57→19:09)
[2016-12-16] MEDS: Albuterol-Ipratrop 3 mg / 0.5 (3 ml) UD INH SCH ×4 (08:58→19:10)
[2016-12-16] MEDS: Bacitracin Ointment 30 GM TUBE TOP SCH ×3 (09:57→17:13)
--- NOTE | 2016-12-16 12:01 | CP.PCM.PN ---
Subjective - Date & Time of Evaluation Date of Evaluation: 12/16/16 Time of Evaluation: 11:58 - Subjective Subjective: General Surgery Note for Dr. Lott Patient seen and examined today. No acute event overnight. He is s/p I&D of back abscess POD#1. Patient reports pain in upper back but states controlled. He has no other complaints. Objective - Vital Signs/Intake and Output Vital Signs (last 24 hours): Temp Pulse Resp BP Pulse Ox 97.9 F 64 20 128/76 98 12/16/16 07:00 12/16/16 07:00 12/16/16 07:00 12/16/16 09:54 12/16/16 07:00 Intake and Output: 12/16/16 12/16/16 06:59 18:59 Intake Total 450 Output Total 500 Balance -50 - Medications Medications: Current Medications Acetaminophen (Tylenol 650mg/20.3ml Solution Ud) 650 mg PEG Q4 PRN PRN Reason: Pain, Mild (1-3) Acetylcysteine (Acetylcysteine 20%) 2 ml INH RBID [facility] Last Admin: 12/16/16 08:57 Dose: 2 ml Albuterol/Ipratropium (Duoneb 3 Mg/0.5 Mg (3 Ml) Ud) 3 ml INH RQID [facility] Last Admin: 12/16/16 11:41 Dose: 3 ml Bacitracin (Bacitracin) 1 gm TOP TID [facility] [place] Last Admin: 12/16/16 09:57 Dose: 1 applic Clonidine HCl (Catapres Tts1 0.1 Mg/24 Hr) 1 patch TD QWK [facility] [place] Enalapril Maleate (Vasotec) 10 mg GT BID [facility] [place] Last Admin: 12/16/16 09:54 Dose: 10 mg Hydralazine HCl (Apresoline) 25 mg PEG TID [facility] [place] Last Admin: 12/16/16 09:54 Dose: 25 mg Hydromorphone HCl (Dilaudid) 1 mg IVP Q8H PRN PRN Reason: Pain, moderate (4-7) Last Admin: 12/16/16 09:54 Dose: 1 mg Piperacillin Sod/Tazobactam Sod (Zosyn 3.375 Gm Iv Premix) 3.375 gm in 50 mls @ 100 mls/hr IVPB Q8 [facility] Last Admin: 12/16/16 05:49 Dose: 100 mls/hr Pantoprazole Sodium (Protonix Susp) 40 mg PEG 0600,1600 [facility] Last Admin: 12/16/16 05:49 Dose: 40 mg Paroxetine HCl (Paxil) 20 mg PO DAILY PRN PRN Reason: Anxiety Rosuvastatin Calcium (Crestor) 20 mg PEG HS [facility] Last Admin: 12/15/16 21:32 Dose: 20 mg - Labs Labs: 12/14/16 11:40 12/14/16 11:40 PT 12.3 SECONDS (9.7-12.2) H 12/13/16 07:12 INR 1.1 12/13/16 07:12 APTT 33 SECONDS (21-34) 12/12/16 13:20 - Constitutional Appears: No Acute Distress - Eye Exam Eye Exam: Normal appearance - ENT Exam ENT Exam: Mucous Membranes Moist - Respiratory Exam Respiratory Exam: NORMAL BREATHING PATTERN - Cardiovascular Exam Cardiovascular Exam: REGULAR RHYTHM - GI/Abdominal Exam GI & Abdominal Exam: Soft, Tenderness Additional comments: g tube in place - Back Exam Additional comments: dressing changed today - area clean and dry - Neurological Exam Neurological Exam: Alert, Awake - Psychiatric Exam Psychiatric exam: Normal Affect, Normal Mood - Skin Skin Exam: Dry, Normal Color, Warm Assessment and Plan - Assessment and Plan (Free Text) Plan: 56 M s/p I&D of back abscess -Analgesics -Dressing changes daily -Management as per primary -Will MARLIN Shaw PGY1
[2016-12-16] MEDS: Acetaminophen 650mg/20.3ml solution UD PEG PRN (16:50)
--- NOTE | 2016-12-16 17:58 | CP.PCM.PN ---
Subjective - Date & Time of Evaluation Date of Evaluation: 12/16/16 Time of Evaluation: 08:00 - Subjective Subjective: clinically same Objective - Vital Signs/Intake and Output Vital Signs (last 24 hours): Temp Pulse Resp BP Pulse Ox 98.1 F 65 20 102/65 97 12/16/16 17:08 12/16/16 17:08 12/16/16 17:08 12/16/16 17:14 12/16/16 17:08 Intake and Output: 12/16/16 12/16/16 06:59 18:59 Intake Total 450 450 Output Total 500 Balance -50 450 - Medications Medications: Current Medications Acetaminophen (Tylenol 650mg/20.3ml Solution Ud) 650 mg PEG Q4 PRN PRN Reason: Pain, Mild (1-3) Last Admin: 12/16/16 16:50 Dose: 650 mg Acetylcysteine (Acetylcysteine 20%) 2 ml INH RBID [facility] Last Admin: 12/16/16 08:57 Dose: 2 ml Albuterol/Ipratropium (Duoneb 3 Mg/0.5 Mg (3 Ml) Ud) 3 ml INH RQID [facility] Last Admin: 12/16/16 16:30 Dose: 3 ml Bacitracin (Bacitracin) 1 gm TOP TID [facility] Last Admin: 12/16/16 17:13 Dose: 1 applic Clonidine HCl (Catapres Tts1 0.1 Mg/24 Hr) 1 patch TD QWK [facility] Enalapril Maleate (Vasotec) 10 mg GT BID [facility] Last Admin: 12/16/16 17:13 Dose: Not Given Hydralazine HCl (Apresoline) 25 mg PEG TID [facility] Last Admin: 12/16/16 17:12 Dose: Not Given Hydromorphone HCl (Dilaudid) 1 mg IVP Q8H PRN PRN Reason: Pain, moderate (4-7) Last Admin: 12/16/16 09:54 Dose: 1 mg Piperacillin Sod/Tazobactam Sod (Zosyn 3.375 Gm Iv Premix) 3.375 gm in 50 mls @ 100 mls/hr IVPB Q8 [facility] Last Admin: 12/16/16 14:10 Dose: 100 mls/hr Pantoprazole Sodium (Protonix Susp) 40 mg PEG 0600,1600 [facility] Last Admin: 12/16/16 16:50 Dose: 40 mg Paroxetine HCl (Paxil) 20 mg PO DAILY PRN PRN Reason: Anxiety Rosuvastatin Calcium (Crestor) 20 mg PEG HS [facility] Last Admin: 12/15/16 21:32 Dose: 20 mg - Labs Labs: 12/14/16 11:40 12/14/16 11:40 PT 12.3 SECONDS (9.7-12.2) H 12/13/16 07:12 INR 1.1 12/13/16 07:12 APTT 33 SECONDS (21-34) 12/12/16 13:20 - Constitutional Appears: Well - Head Exam Head Exam: ATRAUMATIC, NORMAL INSPECTION, NORMOCEPHALIC - Eye Exam Eye Exam: EOMI, Normal appearance, PERRL Pupil Exam: NORMAL ACCOMODATION, PERRL - ENT Exam ENT Exam: Mucous Membranes Moist, Normal Exam - Neck Exam Neck Exam: Full ROM, Normal Inspection. absent: Lymphadenopathy - Respiratory Exam Respiratory Exam: Decreased Breath Sounds - Cardiovascular Exam Cardiovascular Exam: REGULAR RHYTHM, +S1, +S2 - GI/Abdominal Exam GI & Abdominal Exam: Soft, Diminished Bowel Sounds - Rectal Exam Rectal Exam: Deferred
--- NOTE | 2016-12-16 19:23 | OP ---
PROCEDURE DATE: 12/15/2016 PREOPERATIVE DIAGNOSIS: Abscess, upper back. POSTOPERATIVE DIAGNOSIS: Abscess, upper back. PROCEDURE: Incision and drainage of abscess, upper back. SURGEON: Homer Lott MD ASSISTANTS: Dr. Benson and Dr. Pastrana. TYPE OF ANESTHESIA: Local. DESCRIPTION OF PROCEDURE: With the patient in the prone position, the upper back was prepped and draped in usual sterile manner. The patient was noted to have a 3 cm abscess on the upper back. The skin was infiltrated with 1% lidocaine and a transverse incision was made with the drainage of purulent material. The cavity was explored for loculations and a small amount of packing was placed followed by dry sterile dressing. The patient tolerated the procedure well and this was performed at the bedside. Homer Lott MD MTDD
[2016-12-17] MEDS: Piperacill/Tazo 3.375gm in Dex 3.375 GM/50 ML BAG IVPB SCH (05:12)
[2016-12-17] MEDS: Pantoprazole 40 mg Susp UD PEG SCH ×2 (05:13→18:52)
[2016-12-17] MEDS: Albuterol-Ipratrop 3 mg / 0.5 (3 ml) UD INH SCH ×4 (08:36→19:13)
[2016-12-17] MEDS: Acetylcysteine 20% Inhal Soln (4ml) INH SCH ×2 (08:36→19:13)
--- NOTE | 2016-12-17 09:00 | CP.PCM.PN ---
Subjective - Date & Time of Evaluation Date of Evaluation: 12/17/16 Time of Evaluation: 07:00 - Subjective Subjective: General Surgery Note for Dr. Lott Patient seen and examined today. No acute event overnight. He is s/p I&D of back abscess POD#2. Patient reports pain in upper back but states controlled. He has no other complaints. Objective - Vital Signs/Intake and Output Vital Signs (last 24 hours): Temp Pulse Resp BP Pulse Ox 97.7 F 64 18 111/64 97 12/16/16 23:20 12/16/16 23:20 12/16/16 23:20 12/16/16 23:20 12/16/16 23:20 Intake and Output: 12/17/16 12/17/16 06:59 18:59 Intake Total 460 Balance 460 - Medications Medications: Current Medications Acetaminophen (Tylenol 650mg/20.3ml Solution Ud) 650 mg PEG Q4 PRN PRN Reason: Pain, Mild (1-3) Last Admin: 12/16/16 16:50 Dose: 650 mg Acetylcysteine (Acetylcysteine 20%) 2 ml INH RBID [facility] Last Admin: 12/17/16 08:36 Dose: Not Given Albuterol/Ipratropium (Duoneb 3 Mg/0.5 Mg (3 Ml) Ud) 3 ml INH RQID [facility] Last Admin: 12/17/16 08:36 Dose: Not Given Bacitracin (Bacitracin) 1 gm TOP TID [facility] Last Admin: 12/16/16 17:13 Dose: 1 applic Clonidine HCl (Catapres Tts1 0.1 Mg/24 Hr) 1 patch TD QWK [facility] Enalapril Maleate (Vasotec) 10 mg GT BID [facility] Last Admin: 12/16/16 17:13 Dose: Not Given Hydralazine HCl (Apresoline) 25 mg PEG TID [facility] Last Admin: 12/16/16 17:12 Dose: Not Given Piperacillin Sod/Tazobactam Sod (Zosyn 3.375 Gm Iv Premix) 3.375 gm in 50 mls @ 100 mls/hr IVPB Q8 [facility] Last Admin: 12/17/16 05:12 Dose: 100 mls/hr Pantoprazole Sodium (Protonix Susp) 40 mg PEG 0600,1600 [facility] Last Admin: 12/17/16 05:13 Dose: 40 mg Paroxetine HCl (Paxil) 20 mg PO DAILY PRN PRN Reason: Anxiety Rosuvastatin Calcium (Crestor) 20 mg PEG HS [facility] Last Admin: 12/16/16 21:23 Dose: 20 mg - Labs Labs: 12/14/16 11:40 12/14/16 11:40 PT 12.3 SECONDS (9.7-12.2) H 12/13/16 07:12 INR 1.1 12/13/16 07:12 APTT 33 SECONDS (21-34) 12/12/16 13:20 - Constitutional Appears: Non-toxic, No Acute Distress, Older Than Stated Age - Head Exam Head Exam: ATRAUMATIC, NORMAL INSPECTION, NORMOCEPHALIC - Eye Exam Eye Exam: EOMI, Normal appearance - ENT Exam ENT Exam: Mucous Membranes Moist - Respiratory Exam Respiratory Exam: NORMAL BREATHING PATTERN. absent: Accessory Muscle Use, Respiratory Distress - Cardiovascular Exam Cardiovascular Exam: +S1, +S2 - GI/Abdominal Exam GI & Abdominal Exam: Soft. absent: Tenderness Additional comments: peg tube in place - Back Exam Additional comments: dressing changed today, clean, dry, intact - Neurological Exam Neurological Exam: Alert, Awake - Psychiatric Exam Psychiatric exam: Normal Affect, Normal Mood - Skin Skin Exam: Normal Color, Warm Assessment and Plan - Assessment and Plan (Free Text) Assessment: 56 M s/p I&D of back abscess -Analgesics -Dressing changes daily -Management as per primary -wound culture: prelim-no growth -D/W Dr. Lott
[2016-12-17 10:04] VITALS: PULSE 65; RESP 20; O2SAT 94
[2016-12-17] MEDS: Bacitracin 500 Units/gm Oint Foilpak UD TOP SCH ×3 (10:08→18:52)
--- NOTE | 2016-12-17 12:11 | CP.PCM.PN ---
Subjective - Date & Time of Evaluation Date of Evaluation: 12/17/16 Time of Evaluation: 12:04 - Subjective Subjective: PGY-[address] Beatty's service: Pt seen and examined at bedside. Nursing reports no acute events overnight. Pt had BM this morning and nursing reports no dark stools or yimi blood. He denies dizziness, headache, chest pain, palpitations, abd pain, N/V. He admits upper back pain, but pt is s/p I&D of back abscess. He states pain is well controlled. Pt for possible discharge today to [facility] pending AM labs. Clinical partner reports pt is eating well without signs of aspiration/choking. Objective - Vital Signs/Intake and Output Vital Signs (last 24 hours): Temp Pulse Resp BP Pulse Ox 98.3 F 65 20 114/68 94 L 12/17/16 08:00 12/17/16 08:00 12/17/16 08:00 12/17/16 11:54 12/17/16 08:00 Intake and Output: 12/17/16 12/17/16 06:59 18:59 Intake Total 460 Balance 460 - Medications Medications: Current Medications Acetaminophen (Tylenol 650mg/20.3ml Solution Ud) 650 mg PEG Q4 PRN PRN Reason: Pain, Mild (1-3) Last Admin: 12/16/16 16:50 Dose: 650 mg Acetylcysteine (Acetylcysteine 20%) 2 ml INH RBID [facility] Last Admin: 12/17/16 08:36 Dose: Not Given Albuterol/Ipratropium (Duoneb 3 Mg/0.5 Mg (3 Ml) Ud) 3 ml INH RQID [facility] Last Admin: 12/17/16 11:20 Dose: 3 ml Bacitracin (Bacitracin) 1 ea TOP TID [facility] Last Admin: 12/17/16 10:08 Dose: 1 ea Clonidine HCl (Catapres Tts1 0.1 Mg/24 Hr) 1 patch TD QWK [facility] Enalapril Maleate (Vasotec) 10 mg GT BID [facility] Last Admin: 12/17/16 11:54 Dose: 10 mg Hydralazine HCl (Apresoline) 25 mg PEG TID [facility] Last Admin: 12/17/16 10:04 Dose: 25 mg Piperacillin Sod/Tazobactam Sod (Zosyn 3.375 Gm Iv Premix) 3.375 gm in 50 mls @ 100 mls/hr IVPB Q8 [facility] Last Admin: 12/17/16 05:12 Dose: 100 mls/hr Pantoprazole Sodium (Protonix Susp) 40 mg PEG 0600,1600 [facility] Last Admin: 12/17/16 05:13 Dose: 40 mg Paroxetine HCl (Paxil) 20 mg PO DAILY PRN PRN Reason: Anxiety Rosuvastatin Calcium (Crestor) 20 mg PEG HS [facility] Last Admin: 12/16/16 21:23 Dose: 20 mg - Labs Labs: 12/14/16 11:40 12/14/16 11:40 PT 12.3 SECONDS (9.7-12.2) H 12/13/16 07:12 INR 1.1 12/13/16 07:12 APTT 33 SECONDS (21-34) 12/12/16 13:20 - Additional Findings Additional findings: - Constitutional Appears: Non-toxic, No Acute Distress, Older Than Stated Age - Head Exam Head Exam: ATRAUMATIC, NORMAL INSPECTION, NORMOCEPHALIC - Eye Exam Eye Exam: EOMI, Normal appearance - ENT Exam ENT Exam: Mucous Membranes Moist - Respiratory Exam Respiratory Exam: NORMAL BREATHING PATTERN. absent: Accessory Muscle Use, Respiratory Distress - Cardiovascular Exam Cardiovascular Exam: +S1, +S2 - GI/Abdominal Exam GI & Abdominal Exam: Soft. absent: Tenderness Additional comments: peg tube in place - no erythema, warmth surrounding - Back Exam Additional comments: dressing changed today, clean, dry, intact - Neurological Exam Neurological Exam: Alert, Awake - Psychiatric Exam Psychiatric exam: Normal Affect, Normal Mood - Skin Skin Exam: Normal Color, Warm Assessment and Plan - Assessment and Plan (Free Text) Plan: Back abscess Dr. Lott consulted, Gen surg: - s/p I&D POD#2 Wound Culture (12/14/16): No growth Zosyn 3.375gm Q8H (Day 5) HTN Well controlled Clonidine 0.1 mg TD Qwkly [facility] Vasotec 10mg GT BID Apresoline 25mg PEG TID [facility] Recent stroke - Sequelae of left hemiparesis, dysphagia (PEG insertion) Restart ASA 81 mg Daily Restart Plavix 70mg PO Daily Crestor 20mg PEG HS PEG tube placement Hx of dysphagia PEG tube placed 11/22/16, replaced 12/03 after pt inadvertently removed - operating without difficulty - pt tolerating oral feeds Dr. Bennett, GI internet consultant - may benefit from reversal of PEG tube if tolerating oral feeds GI bleed Admit to tele on 5T Nursing facility pt was at reported dark stools Stool Occult positive 12/12/16 Hgb 9.[address] Bennett, GI internet consultant - H/H stable, no overt GI blood loss - may benefit from reversal of PEG tube if tolerating oral feeds - ok for d/c per GI Prophylaxis Protonix 40mg PEG Daily SCDs Restart heparin pending AM labs for H/H Disposition: Pt for discharge to [facility] when bed available Maurizio Reece PGY-2 All medical management per Dr. Beatty
[2016-12-17] MEDS: Acetaminophen 650mg/20.3ml solution UD PEG PRN ×2 (13:32→18:53)
[2016-12-17 13:34] VITALS: TEMP 98.4
[2016-12-17 13:59] LABS: BASO # 0.1 K/uL (0.0-0.2); BASO % 1.3 % (0.0-2.0); EOS # 0.1 K/uL (0.0-0.7); EOS % 1.1 % (0.0-4.0); LYMPH # 1.3 K/uL (1.0-4.3); LYMPH % 15.9 % (20.0-40.0); MEAN CELL VOLUME 94.2 fL (80.0-94.0); MEAN CORPUSCULAR HEMOGLOBIN 31.5 pg (27.0-31.0); MEAN CORPUSCULAR HGB CONC 33.4 g/dL (33.0-37.0); MONO # 0.7 K/uL (0.0-0.8); MONO % 8.7 % (0.0-10.0); RED CELL DISTRIBUTION WIDTH 17.4 % (11.5-14.5); WHITE BLOOD COUNT 8.3 K/uL (4.8-10.8)
[2016-12-17 14:13] LABS: CHLORIDE 95 mmol/L (98-107)
[2016-12-17 14:14] LABS: POTASSIUM 3.9 mmol/L (3.6-5.2); SODIUM 130 mmol/L (132-148)
[2016-12-17 14:16] LABS: ALB/GLOB RATIO 0.8 (1.0-2.1); ALKALINE PHOSPHATASE 114 U/L (38-126); ALT/SGPT 28 U/L (21-72); AST/SGOT 19 U/L (17-59); BILIRUBIN,TOTAL 0.3 mg/dL (0.2-1.3); BLOOD UREA NITROGEN 10 mg/dL (9-20); CARBON DIOXIDE 26 mmol/L (22-30); GFR AFRICAN-AMERICAN > 60; GLUCOSE,RANDOM 85 mg/dL (75-110); TOTAL PROTEIN 7.4 g/dL (6.3-8.3)
[2016-12-17 14:17] LABS: CALCIUM 9.2 mg/dl (8.6-10.4); MAGNESIUM 1.7 mg/dL (1.6-2.3)
[2016-12-17 18:53] VITALS: BP 122/78
--- NOTE | 2016-12-17 19:34 | CP.PCM.PN ---
Subjective - Date & Time of Evaluation Date of Evaluation: 12/17/16 Time of Evaluation: 08:20 - Subjective Subjective: clinically same Objective - Vital Signs/Intake and Output Vital Signs (last 24 hours): Temp Pulse Resp BP Pulse Ox 98.4 F 65 20 122/78 94 L 12/17/16 13:32 12/17/16 08:00 12/17/16 08:00 12/17/16 18:52 12/17/16 08:00 Intake and Output: 12/17/16 12/18/16 18:59 06:59 Intake Total 920 Balance 920 - Medications Medications: Current Medications Acetaminophen (Tylenol 650mg/20.3ml Solution Ud) 650 mg PEG Q4 PRN PRN Reason: Pain, Mild (1-3) Last Admin: 12/17/16 18:53 Dose: 650 mg Acetylcysteine (Acetylcysteine 20%) 2 ml INH RBID [facility] Last Admin: 12/17/16 19:13 Dose: Not Given Albuterol/Ipratropium (Duoneb 3 Mg/0.5 Mg (3 Ml) Ud) 3 ml INH RQID [facility] Last Admin: 12/17/16 19:13 Dose: Not Given Bacitracin (Bacitracin) 1 ea TOP TID [facility] Last Admin: 12/17/16 18:52 Dose: 1 ea Clonidine HCl (Catapres Tts1 0.1 Mg/24 Hr) 1 patch TD QWK [facility] Enalapril Maleate (Vasotec) 10 mg GT BID [facility] Last Admin: 12/17/16 18:52 Dose: 10 mg Hydralazine HCl (Apresoline) 25 mg PEG TID [facility] Last Admin: 12/17/16 18:52 Dose: 25 mg Piperacillin Sod/Tazobactam Sod (Zosyn 3.375 Gm Iv Premix) 3.375 gm in 50 mls @ 100 mls/hr IVPB Q8 [facility] Last Admin: 12/17/16 05:12 Dose: 100 mls/hr Pantoprazole Sodium (Protonix Susp) 40 mg PEG 0600,1600 [facility] Last Admin: 12/17/16 18:52 Dose: 40 mg Paroxetine HCl (Paxil) 20 mg PO DAILY PRN PRN Reason: Anxiety Rosuvastatin Calcium (Crestor) 20 mg PEG HS [facility] Last Admin: 12/16/16 21:23 Dose: 20 mg - Labs Labs: 12/17/16 13:50 12/17/16 13:50 PT 12.3 SECONDS (9.7-12.2) H 12/13/16 07:12 INR 1.1 12/13/16 07:12 APTT 33 SECONDS (21-34) 12/12/16 13:20 - Constitutional Appears: Well - Head Exam Head Exam: ATRAUMATIC, NORMAL INSPECTION, NORMOCEPHALIC - Eye Exam Eye Exam: EOMI, Normal appearance, PERRL Pupil Exam: NORMAL ACCOMODATION, PERRL - ENT Exam ENT Exam: Mucous Membranes Moist, Normal Exam - Neck Exam Neck Exam: Full ROM, Normal Inspection. absent: Lymphadenopathy - Respiratory Exam Respiratory Exam: Decreased Breath Sounds - Cardiovascular Exam Cardiovascular Exam: REGULAR RHYTHM, +S1, +S2 - GI/Abdominal Exam GI & Abdominal Exam: Soft, Diminished Bowel Sounds - Rectal Exam Rectal Exam: Deferred
== END 2016-12-17 19:30 | DRG 395 ==
LOC: C.ER 12:21 → C.9E 14:02 → C.5S 15:55
PROVIDERS: ADMIT Internal Medicine Nephrology; ATTEND Internal Medicine Nephrology
PROC: 0W9K0ZZ Drainage of Upper Back, Open Approach (ICD-10-PCS; principal; 2016-12-15)
DX: D64.9 Anemia, unspecified (principal); I69.354 Hemiplegia and hemiparesis following cerebral infarction affecting left non-dominant side; I10 Essential (primary) hypertension; K92.1 Melena; L02.212 Cutaneous abscess of back [any part, except buttock and flank]; F41.9 Anxiety disorder, unspecified; M17.12 Unilateral primary osteoarthritis, left knee; E78.5 Hyperlipidemia, unspecified; F17.210 Nicotine dependence, cigarettes, uncomplicated; K21.9 Gastro-esophageal reflux disease without esophagitis; F10.10 Alcohol abuse, uncomplicated; I69.322 Dysarthria following cerebral infarction; I69.391 Dysphagia following cerebral infarction